=== PATIENT | female | born 1945 | race Caucasian/White ===

== ENCOUNTER → 2017-01-13 | Outpatient (CLI) | payer MEDICARE ==
[2016-03-06 15:51] VITALS: BP 126/76
[~2017-01-13] MED LIST: ASPI-482 PO; KRIL1CAP5 PO; LOSA1TAB18 PO; MULT-246 PO; OMEP20CA9 PO; SUCR1TAB PO; cholesterol pill
--- NOTE | 2017-01-13 15:44 | RAD ---
DATE: 01/13/2017 EXAM: DIGITAL SCREEN BILAT W/CAD HISTORY: Previous right breast cancer COMPARISON: 01/05/2016 This study was interpreted with the benefit of Computerized Aided Detection (CAD). FINDINGS: There are scattered fibroglandular densities in the breasts. There is unchanged skin thickening and architectural distortion in the right breast anteriorly at the 12:00 location compatible with previous surgery. There are dystrophic calcifications in this region which have increased since previous studies. No new or enlarging breast mass is seen. No suspicious microcalcifications have developed. IMPRESSION: 1. Postsurgical changes on the right. 2. No mammographic evidence of malignancy in either breast. BI-RADS CATEGORY: 2 BENIGN FINDING(S) RECOMMENDED FOLLOW-UP: 12M 12 MONTH FOLLOW-UP PQRS compliance statement: Patient information was entered into a reminder system with a target due date for the next mammogram. Mammography is a sensitive method for finding small breast cancers, but it does not detect them all and is not a substitute for careful clinical examination. A negative mammogram does not negate a clinically suspicious finding and should not result in delay in biopsying a clinically suspicious abnormality. "Our facility is accredited by the [employer] Mammography Program."
== END | disposition home or self-care (01) ==
LOC: MAMMO 14:26
PROVIDERS: ATTEND Family Medicine
DX: Z12.31 Encounter for screening mammogram for malignant neoplasm of breast (principal)
CPT/HCPCS: G0202; 77067

== ENCOUNTER 2017-04-03 12:53 | Emergency (ER) | payer MEDICARE ==
[~2017-04-03] VITALS: Ht 162.6 cm; Wt 77.1 kg
--- NOTE | 2017-04-03 14:05 | PHYS DOC ---
Past Medical History Past Medical History: Cancer, High Cholesterol, Hypertension, Other Additional Past Medical Histor: R BREAST Past Surgical History: Cholecystectomy, Hysterectomy, Other Additional Past Surgical Histo: L knee; LEFT TOES Alcohol Use: Occasionally Drug Use: None Adult General Chief Complaint Chief Complaint: BACK PAIN OR INJURY [facility] HPI Patient is a 71 year old female presents to the emergency department stating that she is having left lower back pain just above her hip. Patient states that this is been going on for the last few days. She states that she is unable to bend over to get her laundry out of her washer and dryer. Patient denies any loss of bowel or bladder. She denies any trauma or injury. Patient denies any numbness or tingling down into the feet. Patient states that she had taken Lortab for the pain and discomfort with minimal relief. She did state she taken ibuprofen 800 mg today and the pain has actually decreased. Patient also states that her urine has been cloudy. However she denies any urinary symptoms. Patient does state that she has had back problems when she was younger where she had to wear brace. Review of Systems Review of Systems Constitutional: Denies fever or chills [] Eyes: Denies change in visual acuity, redness, or eye pain [] HENT: Denies nasal congestion or sore throat [] Respiratory: Denies cough or shortness of breath [] Cardiovascular: No additional information not addressed in HPI [] GI: Denies abdominal pain, nausea, vomiting, bloody stools or diarrhea [] : Denies dysuria or hematuria [] Musculoskeletal: Patient complaint of left lower back pain and discomfort with no radiation of pain. Denies any joint pain Integument: Denies rash or skin lesions [] Neurologic: Denies headache, focal weakness or sensory changes [] Endocrine: Denies polyuria or polydipsia [] Allergies Allergies Allergies Coded Allergies Type Severity Reaction Last Updated Verified No Known Drug Allergies 03/05/14 No Physical Exam Physical Exam Constitutional: Well developed, well nourished, no acute distress, non-toxic appearance. [] HENT: Normocephalic, atraumatic, bilateral external ears normal, oropharynx moist, no oral exudates, nose normal. [] Eyes: PERRLA, EOMI, conjunctiva normal, no discharge. [] Neck: Normal range of motion, no tenderness, supple, no stridor. [] Cardiovascular:Heart rate regular rhythm, no murmur [] Lungs & Thorax: Bilateral breath sounds clear to auscultation [] Skin: Warm, dry, no erythema, no rash. [] Back: No thoracic, lumbar spine tenderness no step-offs no deformities no crepitus noted. Patient did have point tenderness above the hip area. No radiation of pain not identified. Patient is able to intubate with a good steady gait. Peripheral pulses 2+ cap refill brisk less than 2 seconds. Extremities: No tenderness, no cyanosis, no clubbing, ROM intact, no edema. [] Neurologic: Alert and oriented X 3, normal motor function, normal sensory function, no focal deficits noted. [] Psychologic: Affect normal, judgement normal, mood normal. [] Current Patient Data Vital Signs Vital Signs Date Time Temp Pulse Resp B/P (MAP) Pulse Ox O2 Delivery O2 Flow Rate FiO2 04/03/17 13:45 98.6 63 18 151/60 (90) 94 Room Air 98.6 Lab Values Laboratory Tests Test 04/03/17 14:01 Urine Color Yellow Urine Clarity Clear Urine pH 6.5 Urine Specific Mcmillan 1.015 Urine Protein Negative mg/dL (NEG-TRACE) Urine Glucose (UA) Negative mg/dL (NEG) Urine Ketones (Stick) Negative mg/dL (NEG) Urine Blood Negative (NEG) Urine Nitrite Negative (NEG) Urine Bilirubin Negative (NEG) Urine Urobilinogen Dipstick 0.2 mg/dL (0.2 mg/dL) Urine Leukocyte Esterase Small (NEG) Urine RBC 0 /HPF (0-2) Urine WBC 1-4 /HPF (0-4) Urine Squamous Epithelial Cells Occ /LPF Urine Transitional Epithelial Cells Occ /LPF Urine Amorphous Sediment Present /HPF Urine Bacteria Few /HPF (0-FEW) Urine Mucus Mod /LPF EKG EKG [] Radiology/Procedures Radiology/Procedures [] Course & Med Decision Making Course & Med Decision Making Pertinent Labs and Imaging studies reviewed. (See chart for details) Patient will be provided with Flexeril, and with recommendations for ibuprofen 800 mg every 8 hours. She was instructed that Flexeril will cause drowsiness. Urine was positive for leukocyte Estrace. She'll be provided with Macrobid to take. She was instructed to drink plenty of fluids such as water and cranberry juice. Avoid cranberry juice cocktail, carbonated beverages, citrus fruits, alcohol, caffeine as these are considered irritants to the bladder. Patient be recommended to follow-up with primary care physician in which she states she hasn't appointment the first part of the month. Patient will be discharged home with signs symptoms to return back to emergency department. Patient agrees with discharge instructions treatment regimens and follow-up recommendations. [] Dragon Disclaimer Dragon Disclaimer This electronic medical record was generated, in whole or in part, using a voice recognition dictation system. Departure Departure Impression: Primary Impression: Back pain Additional Impression: Urinary tract infection Disposition: HOME, SELF-CARE Condition: STABLE Referrals: BRAYDON CARBAJAL (PCP) Patient Instructions: Back Pain, Adult, [id number], Urinary Tract Infection, [id number] Additional Instructions: Activity as tolerated. Ibuprofen 800 mg every 8 hours. Medications as prescribed. Flexeril will cause drowsiness do not take any be alert and oriented. Ice packs to the areas of discomfort in her left lower back area. Drink plenty of fluids such as water and cranberry juice. Avoid cranberry juice cocktail, carbonate beverages, citrus fruits, alcohol as these are considered irritants to the bladder. Follow-up to primary care physician in the next week. Return back to emergency prior signs symptoms of become worse. Scripts Nitrofurantoin Monohyd/M-Cryst (MACROBID 100 MG CAPSULE) 100 Mg Capsule 1 CAP PO BID, #14 CAP Prov: AMINA TIPTON APRN 04/03/17 Cyclobenzaprine Hcl (CYCLOBENZAPRINE HCL) 10 Mg Tablet 10 MG PO TID Y for MUSCLE SPASMS, #30 TAB Prov: AMINA TIPTON APRN 04/03/17 Problem Qualifiers AMINA TIPTON APRN Apr 03, 2017 14:05
[2017-04-03 14:12] LABS: BILIRUBIN,URINE NEGATIVE (NEG); GLUCOSE,URINE NEGATIVE (NEG); NITRITE,URINE NEGATIVE (NEG); PH,URINE 6.5; PROTEIN,URINE NEGATIVE (NEG-TRACE); UROBILINOGEN,URINE 0.2 mg/dL (0.2 mg/dL)
[2017-04-03 14:19] LABS: BACTERIA,URINE FEW /HPF (0-FEW); RBC,URINE 0 /HPF (0-2); SQUAMOUS EPITHELIAL CELL,UR OCC /LPF
[2017-04-03] MEDS ORDERED: CYCL10TA2 PO (14:24)
[2017-04-03] MEDS ORDERED: NITR100C62 PO (14:24)
[2017-04-03 14:30] VITALS: BP 142/65
== END 2017-04-03 14:34 | disposition home or self-care (01) ==
LOC: ER 12:53
DX: N39.0 Urinary tract infection, site not specified (principal); E78.00 Pure hypercholesterolemia, unspecified; I10 Essential (primary) hypertension; Z90.49 Acquired absence of other specified parts of digestive tract; Z90.710 Acquired absence of both cervix and uterus
CPT/HCPCS: 81001; 87086; 99284

== ENCOUNTER 2017-12-07 10:55 | Inpatient (IN) | payer MEDICARE ==
[2017-12-07 11:31] LABS: ADD MAN DIFF? NO
[2017-12-07 11:32] LABS: BASO # 0.1 x10^3/uL (0.0-0.2); BASO % 1 % (0-3); EOS # 0.2 x10^3/uL (0.0-0.7); EOS % 2 % (0-3); HEMATOCRIT 39.4 % (36.0-47.0); HEMOGLOBIN 13.1 g/dL (12.0-15.5); LYMPH # 2.9 x10^3/uL (1.0-4.8); LYMPH % 23 % (24-48); MEAN CORPUSCULAR HEMOGLOBIN 33 pg (25-35); MEAN CORPUSCULAR HGB CONC 33 g/dL (31-37); MEAN CORPUSCULAR VOLUME 99 fL (79-100); MONO # 0.9 x10^3/uL (0.0-1.1); MONO % 7 % (0-9); NEUT # 8.3 x10^3uL (1.8-7.7); NEUT % 67 % (31-73); PLATELET COUNT 331 x10^3/uL (140-400); RED CELL DISTRIBUTION WIDTH 13.6 % (11.5-14.5); WHITE BLOOD COUNT 12.3 x10^3/uL (4.0-11.0)
[2017-12-07 11:49] LABS: ANION GAP 10 (6-14); BLOOD UREA NITROGEN 17 mg/dL (7-20); BUN/CREATININE RATIO 17 (6-20); CALCIUM 9.5 mg/dL (8.5-10.1); CARBON DIOXIDE 28 mmol/L (21-32); CHLORIDE 104 mmol/L (98-107); GFR 54.3; GLUCOSE 112 mg/dL (70-99); POTASSIUM 4.1 mmol/L (3.5-5.1); SODIUM 142 mmol/L (136-145)
[2017-12-07 11:56] LABS: ALBUMIN 3.8 g/dL (3.4-5.0); ALK PHOS 126 U/L (46-116); ALT (SGPT) 28 U/L (14-59); AST (SGOT) 18 U/L (15-37); TOTAL BILIRUBIN 0.5 mg/dL (0.2-1.0); TOTAL PROTEIN 7.6 g/dL (6.4-8.2)
[2017-12-07 11:57] LABS: TROPONINI < 0.017 ng/mL (0.000-0.055)
[2017-12-07 11:58] LABS: NT-PRO BNP 124 pg/mL (0-124)
[2017-12-07 12:34] LABS: INFLUENZA A PATIENT NEGATIVE (NEGATIVE); INFLUENZA B PATIENT NEGATIVE (NEGATIVE); OBC FLU VALID
[2017-12-07] MEDS ORDERED: ACETAMINOPHEN 325 MG TABLET. PO (13:30)
[2017-12-07] MEDS ORDERED: ONDANSETRON PF 4 MG/2 ML VIAL. IV (13:30)
[2017-12-07] MEDS: fentaNYL PF VIAL 100 MCG/2 ML VIAL IV (13:35)
[2017-12-07] MEDS: LIDOCAINE (700MG/PATCH) PATCH. TD (13:37)
[2017-12-07] MEDS: GADOBUTROL 7.5 MMOL/7.5 ML VIAL IV (14:23)
[2017-12-07] MEDS: HYDROcodone/APAP 5/325MG 1 TAB TABLET PO ×2 (16:25→20:34)
[2017-12-07] MEDS: ASPIRIN ENTERIC COATED 81 MG TABLET.DR. PO (16:51)
[2017-12-07] MEDS: PATCH REMOVAL. MC (20:34)
[2017-12-07] MEDS: ENOXAPARIN 40 MG/0.4 ML SYRINGE. SQ (20:34)
[2017-12-08] MEDS: GABAPENTIN 300 MG CAPSULE. PO ×4 (01:13→20:15)
[2017-12-08] MEDS: HYDROcodone/APAP 5/325MG 1 TAB TABLET PO ×4 (01:18→20:22)
[2017-12-08 05:45] LABS: ADD MAN DIFF? NO
[2017-12-08 05:47] LABS: BASO # 0.1 x10^3/uL (0.0-0.2); BASO % 1 % (0-3); EOS # 0.2 x10^3/uL (0.0-0.7); EOS % 2 % (0-3); HEMATOCRIT 37.4 % (36.0-47.0); HEMOGLOBIN 12.5 g/dL (12.0-15.5); LYMPH # 3.6 x10^3/uL (1.0-4.8); LYMPH % 37 % (24-48); MEAN CORPUSCULAR HEMOGLOBIN 33 pg (25-35); MEAN CORPUSCULAR HGB CONC 34 g/dL (31-37); MEAN CORPUSCULAR VOLUME 98 fL (79-100); MONO # 0.8 x10^3/uL (0.0-1.1); MONO % 8 % (0-9); NEUT % 52 % (31-73); PLATELET COUNT 315 x10^3/uL (140-400); RED BLOOD COUNT 3.81 x10^6/uL (3.50-5.40); RED CELL DISTRIBUTION WIDTH 13.7 % (11.5-14.5); WHITE BLOOD COUNT 9.7 x10^3/uL (4.0-11.0)
[2017-12-08 06:10] LABS: ANION GAP 5 (6-14); BLOOD UREA NITROGEN 18 mg/dL (7-20); CARBON DIOXIDE 28 mmol/L (21-32); CHLORIDE 104 mmol/L (98-107); CREATININE 0.9 mg/dL (0.6-1.0); GFR 61.4; GLUCOSE 94 mg/dL (70-99); POTASSIUM 3.5 mmol/L (3.5-5.1); SODIUM 137 mmol/L (136-145)
[2017-12-08] MEDS: PANTOPRAZOLE 40 MG TABLET.DR. PO (08:03)
[2017-12-08] MEDS: ASPIRIN ENTERIC COATED 81 MG TABLET.DR. PO (08:04)
[2017-12-08] MEDS: CHOLECALCIFEROL (VITAMIN D3) 5,000 UNIT CAPSULE PO (08:04)
[2017-12-08] MEDS: MULTIVITAMIN with MINERAL TABLET. PO (08:04)
[2017-12-08] MEDS: hydroCHLOROthiazide 25 MG TABLET PO (08:04)
[2017-12-08] MEDS: LOSARTAN POTASSIUM 50 MG TABLET. PO (08:04)
[2017-12-08] MEDS ORDERED: ASPIRIN ENTERIC COATED 81 MG TABLET.DR. PO (09:00)
[2017-12-08] MEDS ORDERED: NON FORMULARY ITEM (Losartan/Hydrochlorothiazide (Losartan-Hctz 100-25 Mg Tab) 1 TAB) PO (09:00)
[2017-12-08] MEDS ORDERED: ONDANSETRON PF 4 MG/2 ML VIAL. IV (09:30)
[2017-12-08] MEDS ORDERED: NICOTINE 21MG PATCH. TD (09:30)
[2017-12-08] MEDS: ENOXAPARIN 40 MG/0.4 ML SYRINGE. SQ (20:14)
[2017-12-08] MEDS: ATORVASTATIN CALCIUM 10 MG TABLET. PO ×2 (20:14→21:00)
[2017-12-09] MEDS: LOSARTAN POTASSIUM 50 MG TABLET. PO (09:53)
[2017-12-09] MEDS: hydroCHLOROthiazide 25 MG TABLET PO (09:54)
[2017-12-09] MEDS: GABAPENTIN 300 MG CAPSULE. PO (09:54)
[2017-12-09] MEDS: CHOLECALCIFEROL (VITAMIN D3) 5,000 UNIT CAPSULE PO (09:55)
[2017-12-09] MEDS: ASPIRIN ENTERIC COATED 81 MG TABLET.DR. PO (09:55)
[2017-12-09] MEDS: MULTIVITAMIN with MINERAL TABLET. PO (09:55)
[2017-12-09] MEDS: PANTOPRAZOLE 40 MG TABLET.DR. PO (09:55)
== END 2017-12-09 11:40 | disposition home or self-care (01) | DRG 69 ==
LOC: ER 10:55 → ED HOLD 13:15 → 6 SOUTH 15:41
DX: G45.9 Transient cerebral ischemic attack, unspecified (principal); E78.00 Pure hypercholesterolemia, unspecified; R07.81 Pleurodynia; E78.5 Hyperlipidemia, unspecified; I10 Essential (primary) hypertension; K21.9 Gastro-esophageal reflux disease without esophagitis; K57.90 Diverticulosis of intestine, part unspecified, without perforation or abscess without bleeding; M81.0 Age-related osteoporosis without current pathological fracture; Z82.49 Family history of ischemic heart disease and other diseases of the circulatory system; Z85.3 Personal history of malignant neoplasm of breast; Z86.73 Personal history of transient ischemic attack (TIA), and cerebral infarction without residual deficits; Z87.11 Personal history of peptic ulcer disease; Z87.891 Personal history of nicotine dependence; Z90.710 Acquired absence of both cervix and uterus; M19.90 Unspecified osteoarthritis, unspecified site; Z90.49 Acquired absence of other specified parts of digestive tract; M54.5 Low back pain; R07.89 Other chest pain; Z98.49 Cataract extraction status, unspecified eye
CPT/HCPCS: 36415; 70450; 70553; 71101; 80048; 80053; 83880; 84484; 85025; 87804; 87804-59; 92610-GN; 93005; 93880; 96374; 96375; 97161-GP; 97165-GO; 99285-25; A9585; C8929; J1650; J3010

== ENCOUNTER → 2017-12-29 | Outpatient (CLI) | payer MEDICARE ==
[~2017-12-29] MED LIST changes: -ASPI-482 PO; -KRIL1CAP5 PO; -LOSA1TAB18 PO; -MULT-246 PO; -OMEP20CA9 PO; +REGADENOSON 0.4 MG/5 ML DISP.SYRIN. IV; -SUCR1TAB PO; -cholesterol pill
== END | disposition home or self-care (01) ==
LOC: NM 08:02
DX: R07.9 Chest pain, unspecified (principal); R06.09 Other forms of dyspnea; R53.83 Other fatigue; I10 Essential (primary) hypertension; R56.9 Unspecified convulsions
CPT/HCPCS: 78452; 93017; 96374; 96375; 96376; A9500; J2785

== ENCOUNTER → 2018-01-16 | Outpatient (CLI) | payer MEDICARE | END | disposition home or self-care (01) | LOC: MAMMO 09:48 | DX: Z12.31 Encounter for screening mammogram for malignant neoplasm of breast (principal) | CPT/HCPCS: 77063; 77067 ==

== ENCOUNTER → 2018-03-27 | Outpatient (CLI) | payer MEDICARE | END | disposition home or self-care (01) | LOC: KCIC DEXA 10:58 | DX: Z13.820 Encounter for screening for osteoporosis (principal); I10 Essential (primary) hypertension; E78.5 Hyperlipidemia, unspecified; E78.00 Pure hypercholesterolemia, unspecified; R29.890 Loss of height; Z85.3 Personal history of malignant neoplasm of breast; Z78.0 Asymptomatic menopausal state | CPT/HCPCS: 77080 ==

== ENCOUNTER → 2018-10-04 | Outpatient (CLI) | payer MEDICARE, OTHER ==
[2018-09-13 11:18] VITALS: BP 110/55
[~2018-10-04] MED LIST changes: +ASPI-482 PO; +ATOR10TA60 PO; +CHOL500016 PO; +CIPR10DR AS; +CYCL10TA2 PO; +GABA300C18 PO; +GABA600T2 PO; +IOHEXOL 180 MG/ML 10 ML VIAL. ONE; +KRIL1CAP5 PO; +LOSA1TAB22 PO; +LOSA1TAB25 PO; +MULT-246 PO; +MULT1TAB52 PO; +NITR100C62 PO; +OMEP20CA9 PO; -REGADENOSON 0.4 MG/5 ML DISP.SYRIN. IV; +SUCR1TAB PO; +cholesterol pill; +methylPREDNISolone ACETATE 40 MG/ML VIAL. ONE; +methylPREDNISolone ACETATE 80 MG/ML VIAL. ONE
--- NOTE | 2018-10-04 13:29 | PAIN ---
DATE OF SERVICE: 10/04/2018 INITIAL CONSULTATION FOR PAIN CLINIC CHIEF COMPLAINT: Low back and right lower extremity pain. HISTORY OF PRESENT ILLNESS: This is a 73-year-old female who presents with history of pain for many years, worse over the past 2 years, increasing pain in the low back, right lower extremity, in the posterior gluteus, posterolateral thigh, lateral anterior thigh, medial thigh, medial lower leg and posterior lower leg and calf, into the foot and occasionally in the great toe. The patient reports it is throbbing, aching, shooting, radiating, becoming more severe with time and not result of any specific injury or action that she is aware of. The patient reports it wakes her from sleep at least once a night, does not affect her bowel or bladder control, but does affect her ability to walk. She is not using assistive devices, however, she has been favoring the right lower extremity, holding on the guardrails, handrails and objects when she walks. The patient reports she has had physical therapy in the past in 2018 as well as chiropractic treatment which is ongoing, exercise is ongoing, all of these have been helpful, but not to a great extent. The patient reports she has tried gabapentin as well as [id number] analgesics and this does decrease the pain to a mild extent as well as Tylenol, which does help also. The patient reports no loss of motor function, but significant fatigability in the right leg with ambulation. The patient did have a lumbar myelogram showing multilevel degenerative changes, bilateral spondylosis at L4-L5 with vacuum disk phenomenon, broad-based posterior disk bulging, with mild degenerative changes and mild foraminal narrowing on the right. L3-L4 shows moderate broad-based posterior bulging with mild degenerative changes as well and central spinal canal well maintained and minimal inferior foraminal encroachment due to disk bulging. L5-S1 shows bilateral spondylosis, moderate disk bulging posteriorly causing moderate bilateral foraminal encroachment. The patient rates her disability from 0-10, 10 being the worst at 9 with home responsibilities, 7 with recreation, 8 with occupation and 5 with life support activities. PAST MEDICAL HISTORY: Significant for cigarette smoking, quit 15 years ago. History of indigestion, hiatal hernia, headaches, stroke in the past, osteoporosis. PAST SURGICAL HISTORY: Include lumpectomy in 1999, stomach surgery for hiatal hernia in 2016, hysterectomy, cholecystectomy, left knee surgery in 2015, and left foot surgery in 2016. CURRENT MEDICATIONS: Include gabapentin, losartan, baby aspirin daily and omeprazole. ALLERGIES: The patient has no known drug allergies. FAMILY HISTORY: Significant for cancers and heart disease as well as diabetes. SOCIAL HISTORY: The patient does not drink alcohol, does not smoke, quit many years ago. She is , lives with her spouse, lives locally in [place], [place] and reports she is currently retired. REVIEW OF SYSTEMS: The patient's review of systems is positive for those items mentioned in history of present illness. All systems reviewed and otherwise negative. It is complete, full and well documented on the patient's chart. PHYSICAL EXAMINATION: VITAL SIGNS: The patient's blood pressure is 140/72, pulse 65, respirations 18, temperature is 97.7 degrees Fahrenheit. Height is 5 feet 3 inches, weighs 173 pounds. GENERAL: The patient is awake, alert, appropriate, very pleasant demeanor. HEENT: Head is normocephalic, atraumatic. Extraocular muscles are intact and symmetrical. Oral cavity: Mucous membranes moist and pink. Dentition is intact. NECK: Shows anterior throat supple without palpable lymphadenopathy noted. Swallow reflex symmetrical. CHEST: Shows normal on inspection. Breath sounds are clear to auscultation bilaterally. HEART: Shows S1, S2 clear. No murmurs auscultated. ABDOMEN: Soft, nontender, nondistended. No palpable organomegaly is noted. No rebound or guarding demonstrated. BACK: Shows spine grossly in the midline. Normal-appearing thoracic kyphosis and lumbar lordotic curvature. Lumbar paraspinous muscle shows symmetrical on inspection; with palpation, shows some moderate tenderness diffusely bilaterally, but only diffusely with palpation and is symmetrical and this is true throughout the upper, middle and lower distribution of paraspinous muscles. No tenderness over the sacrum or sacroiliac regions or the spinous processes. The patient shows good rotational motion of lumbar spine, both laterally as well as extension and flexion without significant difficulty or pain reported. EXTREMITIES: The patient's lower extremities show deep tendon reflexes at 1+ in the patellar and tendo calcaneus tendons are equal. Motor exam is strong with ____ scale of 5 right dorsiflexion and extension, 5/5 on the left. History of quadriceps and hamstring flexion by right and left as well. Peripheral pulses are 1+ posterior tibia. No peripheral edema is noted. Lower extremities are warm and dry to touch, equal in color and appearance. Straight leg raise noted to be positive on the right at about 40 degrees, decreased knee flexion; left side is negative. Gaenslen's and Fransisco's maneuvers are negative bilaterally as well. The patient is able to stand, stand on her toes without significant difficulty or loss of balance. The patient is walking without assistive devices, although she is holding on to the wall and to the hand rail with her right hand to ambulate and does appear to favor the right lower extremity to a fairly significant extent with walking. SKIN: Shows warm and dry, good turgor. No edema. No sores, rashes or bruising. IMPRESSION: This is a 73-year-old female with long history of low back and right lower extremity pain, worse over the past 2 years or so in a radicular pattern. 2. MRI scan of lumbar spine as noted. 3. History of osteoporosis and arthritis. Options were discussed with the patient including conservative medical management, physical therapies continued exercise and interventional techniques and she would like to pursue interventional techniques. We discussed a lumbar epidural steroid injection using description as well as anatomical models to describe the procedure. Risks were then discussed including, but not limited to bleeding, infection, possibility of epidural hematoma, subsequent neurologic compromise, dural puncture, headaches, spinal cord and/or nerve damage; side effects of steroid medication and poor results regarding pain control. The patient understands and wished to proceed. The patient to return to clinic in approximately 2 weeks for followup. She was counseled as to return appointment, activity level and side effects to be aware of. DIAGNOSIS: Lumbar radiculopathy with lumbar spinal stenosis, lumbar degenerative disk disease. PROCEDURE: Lumbar epidural steroid injection, translaminar approach L4-L5 level using C-arm fluoroscopic guidance under sterile prep and drape using local anesthetic. MEDICATION INJECTED: A total of 120 mg Depo-Medrol plus 10 mL of preservative-free normal saline and 2 mL of Isovue for contrast. CONDITION AT DISCHARGE: Stable. The patient tolerated the procedure well and had no complications. BOWEN FENG MD DR: ZACKARY/racquel JOB#: [id number] / [id number]
== END | disposition home or self-care (01) ==
LOC: PNCL 08:52
PROVIDERS: ATTEND Anesthesiology
DX: M51.16 Intervertebral disc disorders with radiculopathy, lumbar region (principal); M48.061 Spinal stenosis, lumbar region without neurogenic claudication; M81.0 Age-related osteoporosis without current pathological fracture; M19.90 Unspecified osteoarthritis, unspecified site; Z87.891 Personal history of nicotine dependence; Z86.73 Personal history of transient ischemic attack (TIA), and cerebral infarction without residual deficits; Z90.49 Acquired absence of other specified parts of digestive tract; Z90.710 Acquired absence of both cervix and uterus; Z98.890 Other specified postprocedural states; Z79.82 Long term (current) use of aspirin; Z79.899 Other long term (current) drug therapy; Z83.3 Family history of diabetes mellitus; Z82.49 Family history of ischemic heart disease and other diseases of the circulatory system
CPT/HCPCS: 62323; J1030; J1040; Q9965

== ENCOUNTER 2018-10-06 15:49 | Emergency (ER) | payer MEDICARE, OTHER ==
[~2018-10-06] VITALS: Ht 160 cm; Wt 78.0 kg
[~2018-10-06 15:49] MED LIST changes: -CIPR10DR AS; -GABA600T2 PO; +GABA600T7 PO; -IOHEXOL 180 MG/ML 10 ML VIAL. ONE; +OMEP20CA10 PO; -OMEP20CA9 PO; -methylPREDNISolone ACETATE 40 MG/ML VIAL. ONE; -methylPREDNISolone ACETATE 80 MG/ML VIAL. ONE
[2018-10-06 16:20] VITALS: BP 129/63
[2018-10-06] MEDS ORDERED: CIPR10DR AS (17:26)
--- NOTE | 2018-10-06 17:27 | PHYS DOC ---
Past Medical History Past Medical History: Cancer, High Cholesterol, Hypertension, Other Additional Past Medical Histor: R BREAST Past Surgical History: Cholecystectomy, Hysterectomy, Other Additional Past Surgical Histo: L knee; LEFT TOES Alcohol Use: Occasionally Drug Use: None Adult General Chief Complaint Chief Complaint: FOREIGNBODY EAR HPI HPI Patient is a 73 year old F who presents with FB sensation in her R ear. She states she awoke at 3 am with a sensation of something crawling around inside her ear so she looked up on line and heard that if you pour mineral oil in the ear it will kill the insect so she did and the movement stopped. Today she still feels like something is in there and it sound is muffled. Review of Systems Review of Systems Constitutional: Denies fever or chills HENT: Denies nasal congestion or sore throat. Reports R ear pain and fullness Respiratory: Denies cough or shortness of breath Cardiovascular: Denies chest pain GI: Denies abdominal pain, nausea, vomiting, bloody stools or diarrhea : Denies dysuria or hematuria Musculoskeletal: Denies back pain or joint pain Integument: Denies rash or skin lesions Neurologic: Denies headache All other systems were reviewed and found to be within normal limits, except as documented in this note. Allergies Allergies Allergies Coded Allergies Type Severity Reaction Last Updated Verified No Known Drug Allergies 12/07/17 No Physical Exam Physical Exam Constitutional: Well developed, well nourished, no acute distress, non-toxic appearance. HENT: Normocephalic, atraumatic, R ear canal inflamed and erythematous and there appears to be a dark FB down by the TM Eyes: PERRLA, EOMI, conjunctiva normal, no discharge. Neck: Normal range of motion, no tenderness, supple, no stridor. Cardiovascular:Heart rate regular rhythm, no murmur Lungs & Thorax: Bilateral breath sounds clear to auscultation Abdomen: Bowel sounds normal, soft, no tenderness, no masses, no pulsatile masses. Skin: Warm, dry, no erythema, no rash. Back: No tenderness, no CVA tenderness. Extremities: No tenderness, no cyanosis, no clubbing, ROM intact, no edema. Neurologic: Alert and oriented X 3, normal motor function, normal sensory function, no focal deficits noted. Psychologic: Affect normal, judgement normal, mood normal. Current Patient Data Vital Signs Vital Signs Date Time Temp Pulse Resp B/P (MAP) Pulse Ox O2 Delivery O2 Flow Rate FiO2 10/06/18 16:20 97.7 82 16 129/63 (85) 95 Room Air 97.7 EKG EKG [] Radiology/Procedures Radiology/Procedures [] Course & Med Decision Making Course & Med Decision Making See procedure note. The FB, a bug, was removed successfully. Due to EAC irritation and erythema, we will cover her with prescription for Cipro HC otic suspension. Advised pt to follow up with PCP or ENT if irritation of ear persists. Pt to avoid sticking anything, including Qtips in to the Ear. Dragon Disclaimer Dragon Disclaimer This electronic medical record was generated, in whole or in part, using a voice recognition dictation system. Ear Foreign Body Removal Indication: Foreign body in the ear canal. Procedure: During otoscopic evaluation a foreign body was visualized in the R ear which appeared to be a bug. The patient's head was positioned appropriately and since the FB was far down by the TM, I first flushed the ear with warm water and the FB moved out towards the outer ear canal opening. I was then able to grasp the FB with the small alligator forceps. It was removed and was a small insect that was . It appeared the insect was intact and inspection of the ear following removal did not show any obvious residual FB. I had a second inspection done by co-worker Wojciech and she agreed it looked to be completely removed. The patient tolerated the procedure well. Complications: none. Departure Departure Impression: Primary Impression: Foreign body in ear Disposition: 01 HOME, SELF-CARE Condition: IMPROVED Referrals: BRAYDON CARBAJAL (PCP) Patient Instructions: Ear Foreign Body, [id number] Additional Instructions: The ear canal was irritated after the insect was removed. Use the ear antibiotic drops and follow up with your doctor or the ENT (ear, nose and throat ) doctor as needed. Scripts Ciprofloxacin/Hydrocortisone (CIPRO HC OTIC SUSPENSION) 10 Ml Drops.susp 3 DROP BID for 7 Days, #10 ML Prov: NAYAN HEMPHILL 10/06/18 NAYAN HEMPHILL Oct 06, 2018 17:27
[2019-02-14] MEDS ORDERED: METF10007 PO (08:28)
== END 2018-10-06 17:30 | disposition home or self-care (01) ==
LOC: ER 15:49
DX: T16.1XXA Foreign body in right ear, initial encounter (principal); E78.00 Pure hypercholesterolemia, unspecified; I10 Essential (primary) hypertension; X58.XXXA Exposure to other specified factors, initial encounter; Y93.89 Activity, other specified; Y92.89 Other specified places as the place of occurrence of the external cause; Y99.8 Other external cause status
CPT/HCPCS: 69200; 99284-25

== ENCOUNTER → 2018-10-30 | Outpatient (CLI) | payer MEDICARE, OTHER ==
[2018-10-06 16:20] VITALS: BP 129/63
[~2018-10-30] MED LIST changes: +CIPR10DR AS; +IOHEXOL 180 MG/ML 10 ML VIAL. ONE; +METF10007 PO; +methylPREDNISolone ACETATE 40 MG/ML VIAL. ONE; +methylPREDNISolone ACETATE 80 MG/ML VIAL. ONE
--- NOTE | 2018-10-30 12:19 | PAIN ---
DATE OF SERVICE: 10/30/2018 PROGRESS NOTE FOR PAIN CLINIC DIAGNOSES: Lumbar radiculopathy with lumbar degenerative disk disease, lumbar spinal stenosis. HISTORY OF PRESENT ILLNESS: The patient is a 73-year-old female who returns for followup status post lumbar epidural steroid injection x 1. The patient reports about 50% improvement for the first week or so, but then the pain beginning to return not like it was, less in the lower extremities, but mostly in the low back. The patient reports it is 9 on a scale of 10 at its worst, on average and 5 at its least and is a 9 today. The patient reports it is aching at times, dull, tight, shooting, sometimes unbearable, but mostly with walking, standing, better with sitting or lying down. The patient reports it does occasionally awaken her from sleep, but not usually. The patient reports she was increasing distance walking, doing activities at home, traveling with greater ease for the first week or so, but then the pain began to return again less in the lower extremities, but more in the low back itself. The patient reports no new motor or sensory deficits, no new bowel or bladder incontinence or other complaints. PHYSICAL EXAMINATION: VITAL SIGNS: The patient's blood pressure 115/70, pulse 67, respirations 18, temperature 97.7 degrees Fahrenheit, weight 177 pounds. GENERAL: The patient is awake, alert, oriented, appropriate, very pleasant demeanor. HEENT: Head shows normocephalic, atraumatic. Extraocular movements intact and symmetrical. Oral cavity: Mucous membranes moist and pink. Dentition intact. NECK: Shows anterior throat supple without palpable lymphadenopathy noted. Swallow reflex symmetrical. CHEST: Shows normal on inspection. Breath sounds clear to auscultation bilaterally. HEART: Shows S1, S2 clear. No murmurs auscultated. ABDOMEN: Soft, nontender, nondistended. No palpable organomegaly is noted. No rebound or guarding demonstrated. BACK: Shows spine grossly in the midline. Normal appearing thoracic kyphosis and some minor flattening of lumbar lordotic curvature. Lumbar paraspinous muscle shows symmetrical on inspection, on palpation shows some moderate tenderness diffusely in the middle and lower distribution of paraspinous muscles, but only diffusely without radiation. The patient has good rotational motion of lumbar spine, both laterally as well as extension and flexion without difficulty. EXTREMITIES: Lower extremities show deep tendon reflexes 1+ in the patellar and talocalcaneal tendons are equal. Motor exam is approximately 4 on scale of 5 on the right and 5/5 on the left with dorsiflexion and extension. PLAN: Options were discussed with the patient. The patient's old chart was reviewed as her current medication regimen updated. Current review of systems updated today as well. We will proceed with a second in the series of lumbar epidural steroid injection today with fluoroscopic guidance. Risks were again discussed including, but not limited to bleeding, infection, possibility of epidural hematoma, subsequent neurologic compromise, dural puncture, headaches, spinal cord and/or nerve damage, side effects of steroid medication and poor results regarding pain control. The patient understands and wished to proceed. The patient to return to clinic in approximately 2 weeks for followup, was counseled on return appointment, activity level and side effects to be aware of. DIAGNOSES: Lumbar radiculopathy with lumbar degenerative disk disease, lumbar spinal stenosis. PROCEDURE: Lumbar epidural steroid injection, translaminar approach at L4-L5 level using C-arm fluoroscopic guidance under sterile prep and drape using local anesthetic. MEDICATION INJECTED: A total of 120 mg Depo-Medrol plus 10 mL of preservative-free normal saline and 2 mL of Isovue for contrast. CONDITION AT DISCHARGE: Stable. The patient tolerated the procedure well, had no complications. BOWEN FENG MD DR: ZACKARY/racquel JOB#: [id number] / [id number]
== END | disposition home or self-care (01) ==
LOC: PNCL 10:35
PROVIDERS: ATTEND Anesthesiology
DX: M51.16 Intervertebral disc disorders with radiculopathy, lumbar region (principal); M48.061 Spinal stenosis, lumbar region without neurogenic claudication
CPT/HCPCS: 62323; J1030; J1040; Q9965

== ENCOUNTER → 2018-11-13 | Outpatient (CLI) | payer MEDICARE, OTHER ==
--- NOTE | 2018-11-13 22:42 | PAIN ---
DATE OF SERVICE: 11/13/2018 PROGRESS NOTE FOR PAIN CLINIC DIAGNOSES: Lumbar radiculopathy with lumbar degenerative disk disease and lumbar spinal stenosis. HISTORY OF PRESENT ILLNESS: The patient is a 73-year-old female who returns for followup status post lumbar epidural steroid injection x 2. The patient reports about 50% improvement, but only lasting for about 2 weeks. The patient reports the pain is returning in the low back and in the bilateral lower extremities, worse on the right than the left, in the posterior gluteus, lateral thigh, anterior thigh, medial thigh, medial lower leg on the right side to the foot and toes as well as some tingling in the foot and toes. The patient reports the pain is a 10 on scale of 10 at its worst, 6 on average, 4 at its least and is a 6 today. The patient reports it is sharp and shooting, sometimes unbearable with walking, standing or changing positions. Initially, she was doing better with walking and doing household activities, but it is becoming more noticeable again. It does not awaken her from her sleep at night, but occasionally keeps her up, but not every night. The patient reports no new motor or sensory deficits. No new bowel or bladder incontinence or other complaints. PHYSICAL EXAMINATION: VITAL SIGNS: The patient's blood pressure is 120/73, pulse 67, respirations 18 and temperature 98.2 degrees Fahrenheit. Weight 176 pounds. GENERAL: The patient is awake, alert, oriented, appropriate, very pleasant demeanor. HEENT EXAMINATION: Shows normocephalic, atraumatic. Extraocular muscles are intact and symmetrical. Oral cavity, mucous membranes are moist and pink. Dentition is intact. NECK: Shows anterior throat supple, without palpable lymphadenopathy noted. Swallow reflex is symmetrical. CHEST: Shows normal on inspection. Breath sounds are clear to auscultation bilaterally. HEART: Shows S1, S2 clear. No murmurs auscultated. ABDOMEN: Soft, nontender and nondistended. No palpable organomegaly is noted. No rebound or guarding demonstrated. BACK: Shows spine grossly in the midline. Normal-appearing thoracic kyphosis, some minor flattening of the lumbar lordotic curvature. Lumbar paraspinous muscle shows symmetrical on inspection. On palpation, it shows some moderate tenderness, but only diffusely without radiation. The patient has good rotational motion of the lumbar spine, both laterally as well as extension and flexion without difficulty. EXTREMITIES: Lower extremities show deep tendon reflexes 1+ in the patellar and tendo calcaneus tendons. Motor exam is approximately 4 on a scale of 5 on the right with dorsiflexion and extension and 5/5 on the left. Peripheral pulses are 1+ posterior tibial. No peripheral edema is noted bilaterally. Options were discussed with the patient. The patient's old chart was reviewed as was her current medication regimen updated. Current review of systems updated today as well. We will proceed with a third in the series of lumbar epidural steroid injection today with fluoroscopic guidance. Risks were again discussed including, but not limited to bleeding, infection, possibility of epidural hematoma, subsequent neurological compromise, dural puncture, headaches, spinal cord and/or nerve damage, side effects to steroid medication and poor results regarding pain control. The patient understands and wishes to proceed. The patient will return to the clinic in approximately 2 weeks for followup. She was counseled on her return appointment, activity level and side effects to be aware of. DIAGNOSES: Lumbar radiculopathy with lumbar degenerative disk disease and lumbar spinal stenosis. PROCEDURE: Lumbar epidural steroid injection in a translaminar approach at L4-L5 level using C-arm fluoroscopic guidance under sterile prep and drape using local anesthetic. MEDICATION INJECTED: A total of 120 mg Depo-Medrol plus 10 mL of preservative-free normal saline and 2 mL of Isovue for contrast. CONDITION AT DISCHARGE: Stable. The patient tolerated the procedure well, had no complications. BOWEN FENG MD DR: ZACKARY/racquel JOB#: [id number] / [id number]
== END | disposition home or self-care (01) ==
LOC: PNCL 10:02
PROVIDERS: ATTEND Anesthesiology
DX: M51.16 Intervertebral disc disorders with radiculopathy, lumbar region (principal); M48.061 Spinal stenosis, lumbar region without neurogenic claudication
CPT/HCPCS: 62323; J1030; J1040; Q9965

== ENCOUNTER → 2019-02-14 | Outpatient (CLI) | payer MEDICARE ==
[~2019-02-14] MED LIST changes: -IOHEXOL 180 MG/ML 10 ML VIAL. ONE; -methylPREDNISolone ACETATE 40 MG/ML VIAL. ONE; -methylPREDNISolone ACETATE 80 MG/ML VIAL. ONE
--- NOTE | 2019-02-14 23:10 | PAIN ---
DATE OF SERVICE: 02/14/2019 PROGRESS NOTE FOR PAIN CLINIC DIAGNOSES: Lumbar radiculopathy with lumbar spinal stenosis and lumbar degenerative disk disease. HISTORY OF PRESENT ILLNESS: The patient is a 73-year-old female who returns for followup status post lumbar epidural steroid injections x 3 with essentially about only 50% improvement overall, but not less. The patient reports the pain returns after about a month, comes back in the low back and bilateral lower extremities, mostly in the right side greater than left, in posterior gluteus, lateral thigh, anterior thigh, medial thighs bilaterally as well as across the low back. The patient reports it is a 9 on a scale of 10 at its worst, 7 on average, 4 at its least and is a 7 today. The patient reports it is sharp and dull, alternating in the low back, radiating, unbearable at times, worse with walking, standing and changing positions, better with sitting or lying down, does not awaken her from sleep at night. The patient reports initially she is able to increase her activities with walking and traveling distances, but after about a month, the pain returns. The patient has had a neurosurgical consultation who is not recommending any surgery. The patient would require an extensive instrumented fusion at L5 and S1 and the patient's neurosurgeon is recommending a spinal cord stimulator if not significantly improved after injections and she has reached that point. The patient would like to investigate this. We gave informative information to research on at her last visit and she is interested in pursuing this. We will make those arrangements. The patient reports no new motor or sensory deficits, no new bowel or bladder incontinence or other complaints. PHYSICAL EXAMINATION: VITAL SIGNS: The patient's blood pressure is 107/68, pulse 90, respirations 18, temperature 98.8 degrees Fahrenheit. Height is 5 feet 3 inches, weight 171 pounds. GENERAL: The patient is awake, alert, oriented, appropriate, very pleasant demeanor. HEENT: Shows normocephalic, atraumatic. Extraocular movements intact and symmetrical. Oral cavity: Mucous membranes moist and pink. Dentition is intact. NECK: Shows anterior throat supple without palpable lymphadenopathy noted. Swallow reflex is symmetrical. CHEST: Shows normal on inspection. Breath sounds are clear to auscultation bilaterally. HEART: Shows S1, S2 clear. No murmurs auscultated. ABDOMEN: Soft, nontender, nondistended. No palpable organomegaly is noted. No rebound or guarding demonstrated. BACK: Shows spine grossly in the midline. Normal appearing thoracic kyphosis and some minor flattening of lumbar lordotic curvature. Lumbar paraspinous muscle shows symmetrical on inspection, on palpation shows some moderate tenderness diffusely bilaterally, but only diffusely without significant radiation. The patient shows good rotational motion of lumbar spine both laterally as well as extension and flexion without significant pain reported. EXTREMITIES: Lower extremities show deep tendon reflexes at 1+ in the patellar and tendo-calcaneus tendons. Motor exam is 4 on a scale of 5 on the right, 5/5 on the left with dorsiflexion and extension. Peripheral pulses are 1+ bilaterally. Options were discussed with the patient. The patient's old chart was reviewed as his current medication regimen updated. Current review of systems updated today as well. We will make arrangements to schedule a spinal cord stimulator trial. The patient will be referred to Psychology first for clearance, and once this is obtained, we will preauthorize the patient for a spinal cord stimulator and temporary lead placement for a trial stimulator. The patient understands and agrees, will follow up after a Psychology evaluation and we will proceed at that point. BOWEN FENG MD DR: ZACKARY/racquel JOB#: [id number] / [id number]
== END | disposition home or self-care (01) ==
LOC: PNCL 07:57
PROVIDERS: ATTEND Anesthesiology
DX: M51.16 Intervertebral disc disorders with radiculopathy, lumbar region (principal); M48.061 Spinal stenosis, lumbar region without neurogenic claudication
CPT/HCPCS: G0463

== ENCOUNTER → 2019-04-08 | Outpatient (CLI) | payer MEDICARE, OTHER ==
[~2019-04-08] MED LIST changes: +REGADENOSON 0.4 MG/5 ML DISP.SYRIN. IV ONE
--- NOTE | 2019-04-08 12:36 | RAD ---
MR#: [id number] Date of Study: 04/08/2019 Ordering Physician: ANA GRIDER, Referring Physician: LAURY SOMMER Tech: OBED Echeverria ARRT (R) (N) APPROVED REPORT Test Type: Pharmacological Stress Nurse/Tech: Laura Barrera R.N. Test Indications: chest pain, SOA Cardiac History: high chol, high bp, family hx, dm, stroke Medications: see ehr Medical History: see ehr Resting ECG: sr Resting Heart Rate: 51 bpm Resting Blood Pressure: 139/54mmHg Pretest Chest Pain: No chest pain Nurse/Tech Notes lungs cta, heart tones regular, Consent: The procedure was explained to the patient in lay terms. Informed consent was witnessed. Eric eout was entered into meebee. History and Stress Test performed by RE[facility] [employer]. Details Pharmacologic stress testing was performed using 0.4mg per 5ml of regadenoson given intravenously ove r 7-10 seconds. Stress Symptoms No chest pain or symptoms. POST EXERCISE Target HR: No Max HR: 84 bpm Max Blood Pressure: 149/79mmHg Chest Pain: No. Arrhythmia: No. ST Change: No. INTERPRETATION Stress EKG Conclusion: No evidence of stress induced EKG changes Imaging Protocol IMAGE PROTOCOL: Rest Tc-99m/stress Tc-99m 1 day Rest: Stress: Viability: Radiopharm.Tc99m DepynksmdNz50d Sestamibi Sbwv27gNl 33mCi Img Date 04/08/2019 04/08/2019 Inj-Img Ofuk16snf. 60min. Rest Admin Site:IV - Left WristAdministrator:OBED Echeverria ARRT (R)(N) Stress Admin Site: IV - Left WristAdministrator: REEMA Waters STRESS DATA End Diast. Vol.104.0mlLVEDV index BSA58.0ml End Syst. Vol.28.0mlLVESV index BSA16.0ml Myocardial Ebcd167.0gEject. Omtevpsx03.0% Stress Scores Regional WT0.00Summed WT0.00 Regional WM0.00Summed WM0.00 The rest and stress images show normal perfusion, normal contraction and thickening. LV Perf. Quant 17 Seg. SSS0.00 17 Seg. SRS2.00 17 Seg. SDS0.00 Stress Defect Extent (% LAD)0.00Rest Defect Extent (% LAD)0.00Rev. Defect Extent (% LAD)0.00 Stress Defect Extent (% LCX) 0.00Rest Defect Extent (% LCX)13.80Rev. Defect Extent (% LCX)0.00 Stress Defect Extent (% RCA)0.00Rest Defect Extent (% RCA)0.00Rev. Defect Extent (% RCA)0.00 Stress Defect Extent (% NOREEN)0.00Rest Defect Extent (% NOREEN)3.70Rev. Defect Extent (% NOREEN)0.00 Other Information Quality:Good Risk Assessment: Low Risk Conclusion 1. No evidence of EKG changes with stress testing. 2. Normal perfusion at stress/rest. 3. Low risk study. 4. EF > 60%. Signed by : Ana Grider, Electronically Approved : 04/08/2019 12:35:43
--- NOTE | 2019-04-08 16:46 | CARD ---
MR#: [id number] Date of Study: 04/08/2019 Ordering Physician: ANA ALMAZAN, Referring Physician: ANA ALMAZAN, Tech: Katie Ashby SHELBI APPROVED REPORT EXAM: Two-dimensional and M-mode echocardiogram with Doppler and color Doppler. Other Information Quality : Good INDICATION Chest Pain 2D DIMENSIONS RVDd2.9 (2.9-3.5cm)Left Atrium(2D)4.0 (1.6-4.0cm) IVSd0.9 (0.7-1.1cm)Aortic Root(2D)2.7 (2.0-3.7cm) LVDd5.1 (3.9-5.9cm)LVOT Diameter2.0 (1.8-2.4cm) PWd0.9 (0.7-1.1cm)LVDs3.4 (2.5-4.0cm) FS (%) 34.2 %SV79.2 ml LVEF(%)62.9 (>50%) Aortic Valve AoV Peak Reginald.188.0cm/sAoV VTI40.1cm AO Peak GR.14.1mmHgLVOT Peak Reginald.109.8cm/s AO Mean GR.8mmHgAVA (VMAX)1.87cm2 JASPER (VTI)2.04dh0JU P 1/2 Jtce973vb Mitral Valve MV E Ngbgmqfv28.8cm/sMV DECEL QAGA839gw MV A Cakvdlml64.7cm/sE/A Ratio1.1 Tricuspid Valve TR P. Rkrjzzou504ww/sRAP FHNYBYGI2jnVo TR Peak Gr.37byEwYJBZ40meZo Pulmonary Vein S1 Eqzcjbos73.7cm/sD2 Fqdxjlur75.8cm/s LEFT VENTRICLE The left ventricle is normal size. There is normal left ventricular wall thickness. The left ventricu lar systolic function is normal and the ejection fraction is within normal range. The Ejection Fracti on is 55-60%. There is normal LV segmental wall motion. Transmitral Doppler flow pattern is Grade I-a bnormal relaxation pattern. RIGHT VENTRICLE The right ventricle is normal size. The right ventricular systolic function is normal. ATRIA The left atrium is mildly dilated. The right atrium size is normal. The interatrial septum is intact with no evidence for an atrial septal defect or patent foramen ovale as noted on 2-D or Doppler imagi ng. AORTIC VALVE The aortic valve is calcified but opens well. Doppler and Color Flow revealed mild aortic regurgitati on. There is no significant aortic valvular stenosis. MITRAL VALVE The mitral valve is normal in structure and function. There is no evidence of mitral valve prolapse. There is no mitral valve stenosis. Doppler and Color-flow revealed mild mitral regurgitation. TRICUSPID VALVE The tricuspid valve is normal in structure and function. Doppler and Color Flow revealed mild tricusp id regurgitation. The PA pressure was estimated at 42 mmHg. There is no tricuspid valve stenosis. PULMONIC VALVE The pulmonic valve is not well visualized. Doppler and Color Flow revealed trace to mild pulmonic alexia vular regurgitation. There is no pulmonic valvular stenosis. GREAT VESSELS The aortic root is normal in size. The ascending aorta is normal in size. The IVC is dilated and edgar apses >50% with inspiration. PERICARDIAL EFFUSION There is no evidence of significant pericardial effusion. Critical Notification Critical Value: No <Conclusion> The left ventricle is normal size. The left ventricular systolic function is normal and the ejection fraction is within normal range. The Ejection Fraction is 55-60%. There is no significant aortic valvular stenosis. Doppler and Color Flow revealed mild aortic regurgitation. Doppler and Color-flow revealed mild mitral regurgitation. Doppler and Color Flow revealed mild tricuspid regurgitation. The PA pressure was estimated at 42 mmHg. Signed by : Rhys Contreras MD Electronically Approved : 04/08/2019 16:46:12
== END | disposition home or self-care (01) ==
LOC: ECHO 07:29
PROVIDERS: ATTEND Internal Medicine Cardiovascular Disease
DX: I08.8 Other rheumatic multiple valve diseases (principal); E11.9 Type 2 diabetes mellitus without complications; Z86.73 Personal history of transient ischemic attack (TIA), and cerebral infarction without residual deficits
CPT/HCPCS: 78452; 93017; 93306; A9500; J2785

== ENCOUNTER → 2019-06-12 | Outpatient (CLI) | payer MEDICARE, OTHER ==
[~2019-06-12] MED LIST changes: -REGADENOSON 0.4 MG/5 ML DISP.SYRIN. IV ONE
--- NOTE | 2019-06-12 10:14 | PAIN ---
DATE OF SERVICE: 06/12/2019 PROGRESS NOTE FOR PAIN CLINIC DIAGNOSIS: Lumbar radiculopathy with lumbar degenerative disk disease and lumbar spinal stenosis. HISTORY OF PRESENT ILLNESS: The patient is a 73-year-old female, who returns for followup status post lumbar epidural steroid injections x 3 with only very minimal decrease in pain for a few days. The patient had been given information about spinal cord stimulator, has seen a psychologist regarding this and has been putt in a good category for spinal manipulations and implants. The patient reports her pain still across the low back into the right leg, lateral thigh, anterior thigh and medial thigh. The patient states it is a 10 on a scale of 10 at its worst over the past week, 8 on an average, 8 at its least and is an 8 today. The patient reports it is worse with walking, standing, changing positions, awakens her from sleep at night, especially on the right side if she lays on the right side. The patient reported it is aching and sharp in quality, sometimes radiating, sometimes severe with ambulation. The patient reports no loss of motor function, no new bowel or bladder incontinence or other complaints. PHYSICAL EXAMINATION: VITAL SIGNS: The patient's blood pressure is 120/71, pulse 67, respirations are 18, temperature is 98.3 degrees Fahrenheit, weight is 170 pounds. GENERAL: The patient is awake, alert, oriented, appropriate, very pleasant demeanor. HEENT: Normocephalic and atraumatic. Extraocular movements are intact and symmetrical. Oral cavity: Mucous membranes moist and pink; dentition is intact. NECK: Shows anterior throat supple without palpable lymphadenopathy noted. Swallow reflex symmetrical. CHEST: Shows normal on inspection. Breath sounds clear to auscultation bilaterally. HEART: Shows S1, S2 clear. No murmurs auscultated. ABDOMEN: Soft, nontender, nondistended. BACK: Shows spine grossly in the midline. EXTREMITIES: The patient's lower extremities show deep tendon reflexes 1+ in the patellar and tendo-calcaneus tendons. Motor exam is strong with 5/5 dorsiflexion, extension, quadriceps and hamstring flexion on the left and 4/5 on the right. Peripheral pulses are 1+ posterior tibial and symmetrical bilaterally. Options were discussed with the patient. The patient's old chart was reviewed as her current medication regimen updated. Current review of systems updated today as well. We will schedule the patient for a spinal cord stimulator trial with Valium given 10 mg to be taken 1 hour prior to the procedure. The patient will return to the clinic as scheduled. We will plan on spinal cord stimulator temporary lead placement at that time. BOWEN FENG MD DR: ZACKARY/racquel JOB#: [id number] / [id number]
== END | disposition home or self-care (01) ==
LOC: PNCL 08:29
PROVIDERS: ATTEND Anesthesiology
DX: M51.16 Intervertebral disc disorders with radiculopathy, lumbar region (principal); M48.061 Spinal stenosis, lumbar region without neurogenic claudication
CPT/HCPCS: G0463

== ENCOUNTER → 2019-06-26 | Outpatient (CLI) | payer MEDICARE, OTHER ==
[~2019-06-26] MED LIST changes: +LIDOCAINE 1% PF 2 ML VIAL. ONE
--- NOTE | 2019-06-26 20:40 | PAIN ---
DATE OF SERVICE: 06/26/2019 PROGRESS NOTE FOR PAIN CLINIC DIAGNOSES: Lumbar radiculopathy with lumbar degenerative disk disease, lumbar spinal stenosis. HISTORY OF PRESENT ILLNESS: The patient is a 73-year-old female who returns for followup status post lumbar epidural steroid injections x 3 and recent visit with neurosurgeon recommending no surgical interventions. We discussed with the patient at that time a spinal cord stimulator and she has before just now has seen her psychologist with readings in a good category for spinal interventions and spinal cord stimulator placement. I would like to proceed today. The patient was given 10 mg Valium to take prior to her arrival. When she did take that has a freight delivery driver who is her with her today as well. The patient reports still significant pain in the low back, bilateral lower extremities, somewhat worse on the right than the left posterior gluteus, posterior thigh, lateral thighs, anterior thighs, again right worse than left. The patient reports it is a 9 on a scale of 10 at its worst in the past week, 8 on average, 6 at its least and is a 6 today. The patient reports no new motor or sensory deficits, no new bowel or bladder incontinence or other complaints. PHYSICAL EXAMINATION: VITAL SIGNS: The patient's blood pressure is 92/57, pulse 119, respirations 16, temperature 97.6 degrees Fahrenheit, weight is 164 pounds. GENERAL: The patient is awake, alert, oriented, appropriate, very pleasant demeanor. HEENT: Shows normocephalic, atraumatic. Extraocular movements are intact and symmetrical. Oral cavity: Mucous membranes moist and pink. Dentition is intact. NECK: Shows anterior throat supple without palpable lymphadenopathy noted. Swallow reflex symmetrical. CHEST: Shows normal on inspection. Breath sounds clear to auscultation bilaterally. HEART: Shows S1, S2 clear. No murmurs auscultated. ABDOMEN: Soft, nontender, nondistended. No palpable organomegaly is noted. No rebound or guarding demonstrated. BACK: Shows spine grossly in the midline. Normal appearing thoracic kyphosis, some minor flattening of lumbar lordotic curvature. Lumbar paraspinous muscle shows symmetrical on inspection, on palpation shows some moderate tenderness diffusely bilaterally going diffusely without radiation. The patient shows good rotational motion of lumbar spine, both laterally as well as extension and flexion without significant difficulty. EXTREMITIES: Lower extremities show deep tendon reflexes 1+ in the patellar and tendo calcaneus tendons. Motor exam is strong with approximately 4 on a scale 5 on the right, 5/5 on the left with dorsiflexion, extension, quadriceps and hamstring flexion. Peripheral pulses are 1+ posterior tibial. No peripheral edema is noted. Options were discussed with the patient. The patient's old chart was reviewed as her current medication regimen updated. Current review of systems updated today as well. We will proceed with a spinal cord stimulator temporary lead placement x 2 with fluoroscopic guidance today. Risks were again discussed including, but not limited to bleeding, infection, possibility of epidural hematoma, subsequent neurologic compromise, dural puncture, headaches, spinal cord and/or nerve damage, exposure of fluoroscopy as well as poor results regarding pain control. The patient understands and wished to proceed. The patient will return to clinic in approximately 1 week for followup and was counseled as to return appointment, activity level and side effects to be aware of. DIAGNOSES: Lumbar radiculopathy with lumbar degenerative disk disease and lumbar spinal stenosis. PROCEDURE: Spinal cord stimulator temporary lead placement x 2 under sterile prep and drape using local anesthetic. The patient was placed in prone position after sterile prep and drape using C-arm fluoroscopic guidance and the external marker was placed over the T8 vertebral body and secured. This time, the lumbar spine was then again identified with the fluoroscopy and using 1% lidocaine anesthetized over the L3-4 interspace using a 14-gauge styletted Hustead needle, the epidural space was entered using preservative-free normal saline loss of resistance technique at this level with negative aspiration. First, the wire was then placed through the 14-gauge needle under direct fluoroscopic vision both AP and lateral views to assure posterior placement in the epidural space and midline. This was advanced to the top of the superior endplate of the T8 vertebral body again verified to be posterior and midline. At this time, second lead was placed using the same technique with lidocaine at the L4-5 level entrance with the needle entering the L3-4 interspace into the epidural space again with preservative-free normal saline loss of resistance technique. Negative aspiration was noted. The second spinal cord stimulator wire was then placed under direct visualization and advanced in the midline and posterior to the superior endplate overlying the T9 vertebral body and directly adjacent to the first wire. This was again verified in posterior epidural space placement as well as AP views showing midline placement. At this time, the needles and stylets were removed. 1% lidocaine was used to anesthetize the skin near the insertion sites of the wires and to use for suture securing, which was done with and a 2-0 silk and anchoring devices applied with the Nevro kit, again under sterile prep and technique. Mastisol and Steri-Strip was placed x 2. The patient tolerated the procedure well, had no complications. CONDITION AT DISCHARGE: Stable. The patient will follow up in approximately 1 week or sooner as necessary. BOWEN FENG MD DR: ZACKARY/racquel JOB#: [id number] / [id number]
== END ==
LOC: PNCL 12:44
PROVIDERS: ATTEND Anesthesiology
DX: M51.16 Intervertebral disc disorders with radiculopathy, lumbar region (principal); M48.061 Spinal stenosis, lumbar region without neurogenic claudication
CPT/HCPCS: 63650; C1897

== ENCOUNTER → 2019-07-03 | Outpatient (CLI) | payer MEDICARE, OTHER ==
[~2019-07-03] MED LIST changes: -LIDOCAINE 1% PF 2 ML VIAL. ONE
--- NOTE | 2019-07-03 12:52 | PAIN ---
DATE OF SERVICE: 07/03/2019 PROGRESS NOTE FOR PAIN CLINIC DIAGNOSIS: Lumbar radiculopathy with lumbar degenerative disk disease, lumbar spinal stenosis. HISTORY OF PRESENT ILLNESS: The patient is a 73-year-old female who returns for followup status post spinal cord stimulator temporary lead placement x 2. The patient did very well over the past week. She reports near 100% improvement with the spinal cord stimulator. The pain in the low back and the leg now completely gone by her report. She reports her pain as 0 on a scale of 10 at its worst, least and average, and is 0 today. The patient reports no new motor or sensory deficits, no new changes. Very pleased with her progress, very pleased with the results with the stimulator system. The patient reports no new changes, no new bowel or bladder incontinence or other complaints. No difficulty with the leads themselves or the bandaging. PHYSICAL EXAMINATION: VITAL SIGNS: The patient's blood pressure is 126/58, pulse 75, respirations 18, temperature 98.3 degrees Fahrenheit, height is 5 feet 3 inches, weight is 167 pounds. GENERAL: The patient is awake, alert, oriented, appropriate, very pleasant demeanor. The patient is accompanied by her . HEENT: Shows normocephalic, atraumatic. Extraocular movements are intact and symmetrical. Oral cavity; mucous membranes moist and pink. NECK: Shows anterior throat supple. BACK: Shows spine grossly in the midline. The patient's lumbar spine shows well bandaged spinal cord stimulator leads. Bandages were taken down and area examined showing no erythema, no tenderness, no exudate or drainage. Under sterile technique, the patient's sutures were removed and the leads were removed x 2 with tips intact. Sites clean and dry. PLAN: Options were discussed with the patient. The patient's old chart was reviewed. Her current medication regimen updated. Current review of systems updated today as well and we will make arrangements for permanent stimulator placement as she did very well with the trial. I would like to proceed with permanent stimulator placement. BOWEN FENG MD DR: ZACKARY/racquel JOB#: [id number] / [id number]
== END | disposition home or self-care (01) ==
LOC: PNCL 12:00
PROVIDERS: ATTEND Anesthesiology
DX: M51.16 Intervertebral disc disorders with radiculopathy, lumbar region (principal); M48.061 Spinal stenosis, lumbar region without neurogenic claudication
CPT/HCPCS: G0463

== ENCOUNTER 2019-08-28 11:48 | Inpatient (IN) | payer MEDICARE ==
[~2019-08-28] VITALS: Ht 160 cm; Wt 79.9 kg
[~2019-08-28 11:48] MED LIST changes: +OMEP-229 PO; -OMEP20CA10 PO
--- NOTE | 2019-08-28 12:26 | RAD ---
Examination: CT CODE STROKE HEAD WO History: Right upper extremity weakness Comparison/Correlation: 12/07/2017 CT head without contrast Findings: Axial images were obtained without contrast. Ventricles are normal size. Atrophy is present. Chronic ischemic changes and white matters present. There is low-attenuation extending to the right parietal region superiorly which appears to represent an infarct. No change at this site compared to the prior exam. No midline shift. No bony destructive finding. Mucosal thickening of the ethmoid air cells noted. Globes and optic nerves are unremarkable. Impression: No intracranial hemorrhage. Advanced chronic ischemic changes in the white matter. Old right parietal infarct. No new infarct. On 08/28/2019 at 12:23 PM, results were reported to the referring emergency room provider. PQRS Compliance Statement: One or more of the following individualized dose reduction techniques were utilized for this examination: 1. Automated exposure control 2. Adjustment of the mA and/or kV according to patient size 3. Use of iterative reconstruction technique Electronically signed by: Tomas Simmons MD (08/28/2019 12:23 PM) [facility]
[2019-08-28 12:32] LABS: BILIRUBIN,URINE NEGATIVE (NEG); CLARITY,URINE CLEAR; COLOR,URINE YELLOW; NITRITE,URINE NEGATIVE (NEG); PH,URINE 6.5; PROTEIN,URINE NEGATIVE (NEG-TRACE); UROBILINOGEN,URINE 0.2 mg/dL (0.2 mg/dL)
[2019-08-28 12:39] LABS: BARBITURATES NEG (NEG); BENZODIAZEPINES NEG (NEG); CANNABINOIDS NEG (NEG); COCAINE NEG (NEG); METHADONE NEG (NEG); OPIATES POS (NEG); PHENCYCLIDINE NEG (NEG)
[2019-08-28 12:40] LABS: AMPHETAMINE/METHAMPHETAMINE NEG (NEG)
[2019-08-28 12:41] LABS: BACTERIA,URINE 0 /HPF (0-FEW); RBC,URINE 0 /HPF (0-2); WBC,URINE 0 /HPF (0-4)
[2019-08-28 13:02] LABS: CALCIUM 9.2 mg/dL (8.5-10.1); CREATININE 1.1 mg/dL (0.6-1.0); GFR 48.6; POTASSIUM 3.8 mmol/L (3.5-5.1)
[2019-08-28 13:06] LABS: PROTHROMBIN TIME PATIENT 12.2 SEC (11.7-14.0)
[2019-08-28 13:07] LABS: BASO # 0.1 x10^3/uL (0.0-0.2); BASO % 1 % (0-3); EOS # 0.1 x10^3/uL (0.0-0.7); EOS % 1 % (0-3); HEMATOCRIT 38.2 % (36.0-47.0); HEMOGLOBIN 12.9 g/dL (12.0-15.5); LYMPH # 2.4 x10^3/uL (1.0-4.8); LYMPH % 33 % (24-48); MEAN CORPUSCULAR HEMOGLOBIN 32 pg (25-35); MEAN CORPUSCULAR HGB CONC 34 g/dL (31-37); MEAN CORPUSCULAR VOLUME 96 fL (79-100); MONO # 0.6 x10^3/uL (0.0-1.1); MONO % 8 % (0-9); NEUT # 4.1 x10^3/uL (1.8-7.7); NEUT % 57 % (31-73); PLATELET COUNT 328 x10^3/uL (140-400); RED CELL DISTRIBUTION WIDTH 14.4 % (11.5-14.5); WHITE BLOOD COUNT 7.3 x10^3/uL (4.0-11.0)
[2019-08-28 13:08] LABS: ALBUMIN 3.8 g/dL (3.4-5.0); ALBUMIN/GLOBULIN RATIO 0.9 (1.0-1.7); MAGNESIUM 2.2 mg/dL (1.8-2.4); TOTAL BILIRUBIN 0.4 mg/dL (0.2-1.0); TOTAL PROTEIN 7.9 g/dL (6.4-8.2)
--- NOTE | 2019-08-28 13:08 | PDOC1 ---
History and Physical Date of Admission Date of Admission DATE: 08/28/19 TIME: 13:07 Identification/Chief Complaint Chief Complaint 73 year old female with history of TIA, hypertension, high cholesterol, right breast cancer and treated, who presents to the ED today complaining of right arm going numb for couple seconds today around 10:30 while she was doing her makeup, she reports she felt too weak to the right upper extremity.///states symptoms improved immediately. reports she has been drooling for 3 days and also noted numbness on her face that began 3 days ago. She is also complaining of a 7 out of 10 frontal headache for the last 3 days. Patient denies any chest pain, shortness of breath. At this point in the ED she states her symptoms are improving. reports she's had similar symptoms before and has been following up with Dr. Bond we informed her there is nothing wrong with her. Past Medical History Past Medical History Past Medical History Past Medical History Past Medical History Cardiovascular: HTN, Hyperlipidemia Pulmonary: Pneumonia GI: Diverticulosis (/itis), GERD, Hemorrhoids, Peptic Ulcer disease, Other (hiatal hernia, diarrhea) Heme/Onc: Cancer (breast) Musculoskeletal: low back pain (degenerative disc disease), Osteoarthritis, O ther (neck pain, has had epidural injection) Endocrine: Osteoporosis Past Surgical History Past Surgical History: Cataract Removal, Hysterectomy (oophorectomy), Other (breast lumpectomy and removal of lymph nodes, left knee, left heel spur) Family History Family History: CAD Social History Social History , quit smoking years ago, no alcohol Cardiovascular: HTN, Hyperlipidemia Pulmonary: Pneumonia GI: Diverticulosis (/itis), GERD, Hemorrhoids, Peptic Ulcer disease, Other (hiatal hernia, diarrhea) Heme/Onc: Cancer (breast) Musculoskeletal: low back pain (degenerative disc disease), Osteoarthritis, Other (neck pain, has had epidural injection) Endocrine: Osteoporosis Past Surgical History Past Surgical History: Cataract Removal, Hysterectomy (oophorectomy), Other (breast lumpectomy and removal of lymph nodes, left knee, left heel spur) Cardiovascular: HTN, Hyperlipidemia Pulmonary: Pneumonia CENTRAL NERVOUS SYSTEM: CVA GI: Diverticulosis, GERD, Hemorrhoids, Peptic Ulcer disease, Other Heme/Onc: Cancer Musculoskeletal: low back pain, Osteoarthritis, Other Endocrine: Osteoporosis Past Surgical History Past Surgical History: Cataract Removal, Hysterectomy, Other Family History Family History: Hypertension Social History Smoke: No ALCOHOL: none Drugs: None Current Medications Current Medications Active Scripts Active Reported Multivitamins (Multivitamin) 1 Each Tablet 1 Tab PO DAILY Gabapentin (Gabapentin) 300 Mg Capsule 300 Mg PO [id number] Losartan-Hctz 100-25 Mg Tab (Losartan/Hydrochlorothiazide) 1 Each Tablet 1 Tab PO DAILY Aspir 81 (Aspirin) 81 Mg Tablet.dr 81 Mg PO Omeprazole 20 Mg Capsule.dr 20 Mg PO DAILY Allergies Allergies: Coded Allergies: No Known Drug Allergies (Unverified , 12/07/17) ROS Review of System Review of Systems Review of Systems Constitutional: Denies fever or chills [] Eyes: Denies change in visual acuity, redness, or eye pain [] HENT: Denies nasal congestion or sore throat [] Respiratory: Denies cough or shortness of breath [] Cardiovascular: No additional information not addressed in HPI [] GI: Denies abdominal pain, nausea, vomiting, bloody stools or diarrhea [] : Denies dysuria or hematuria [] Musculoskeletal: Denies back pain or joint pain [] Integument: Denies rash or skin lesions [] Neurologic: Reports right arm weakness or numbness to the right side of the face, drooling. , resolving Denies headache, focal weakness or sensory changes [] 14 PT systems were reviewed and found to be within normal limits, except as documented Respiratory: No: Cough, Hemoptysis, Orthopnea, Pleuritic Pain, Shortness of susie ath, SOB with excertion, Sputum Changes, Stridor, Tachypnea, Wheezing, Other Cardiovascular: No Chest Pain, No Palpitations, No Orthopnea, No Paroxysmal Noc. Dyspnea, No Edema, No Lt Headedness, No Other Neurological: Yes Numbness/Tingling Physical Exam Physical Exam Physical Exam Physical Exam Constitutional: Well developed, well nourished, no acute distress, non-toxic appearance. [] HENT: Normocephalic, atraumatic, bilateral external ears normal, oropharynx moist, no oral exudates, nose normal. [] Eyes: PERRLA, EOMI, conjunctiva normal, no discharge. [] Neck: Normal range of motion, no tenderness, supple, no stridor. [] Cardiovascular:Heart rate regular rhythm, no murmur [] Lungs & Thorax: Bilateral breath sounds clear to auscultation [] Abdomen: Bowel sounds normal, soft, no tenderness, no masses, no pulsatile masses. [] Skin: Warm, dry, no erythema, no rash. [] Back: No tenderness, no CVA tenderness. [] Extremities: No tenderness, no cyanosis, no clubbing, ROM intact, no edema. 5/5 strength to bilateral upper and lower extremities Neurologic: Alert and oriented X 3, normal motor function, normal sensory function, no focal deficits noted. Cranial nerves II through XII intact. Slight decrease in sensation on the right side of the face than the left. Psychologic: Affect normal, judgement normal, mood normal. [] General: Alert, Oriented X3, Cooperative, No acute distress HEENT: Mucous membr. moist/pink Lungs: Clear to auscultation, Normal air movement Breasts: Not examined Abdomen: Normal bowel sounds, Soft Rectal Exam: not examined PELVIC: Examination not indicated Extremities: No cyanosis Neuro: Normal speech, Cranial nerves 3-12 NL Psych/Mental Status: Mental status NL, Mood NL Vitals Vitals Vital Signs Date Time Temp Pulse Resp B/P (MAP) Pulse Ox O2 Delivery O2 Flow Rate FiO2 08/28/19 12:00 98.2 73 20 168/77 (107) 97 Room Air 98.2 Labs Labs Laboratory Tests Test 08/28/19 12:11 08/28/19 12:15 Glucose (Fingerstick) 97 mg/dL (70-99) Urine Collection Type Unknown Urine Color Yellow Urine Clarity Clear Urine pH 6.5 Urine Specific [place] 1.010 Urine Protein Negative mg/dL (NEG-TRACE) Urine Glucose (UA) Negative mg/dL (NEG) Urine Ketones (Stick) Negative mg/dL (NEG) Urine Blood Negative (NEG) Urine Nitrite Negative (NEG) Urine Bilirubin Negative (NEG) Urine Urobilinogen Dipstick 0.2 mg/dL (0.2 mg/dL) Urine Leukocyte Esterase Negative (NEG) Urine RBC 0 /HPF (0-2) Urine WBC 0 /HPF (0-4) Urine Bacteria 0 /HPF (0-FEW) Urine Opiates Screen Pos (NEG) Urine Methadone Screen Neg (NEG) Urine Barbiturates Neg (NEG) Urine Phencyclidine Screen Neg (NEG) Urine Amphetamine/Methamphetamine Neg (NEG) Urine Benzodiazepines Screen Neg (NEG) Urine Cocaine Screen Neg (NEG) Urine Cannabinoids Screen Neg (NEG) Urine Ethyl Alcohol Neg (NEG) Laboratory Tests Test 08/28/19 12:11 08/28/19 12:15 Glucose (Fingerstick) 97 mg/dL (70-99) Urine Collection Type Unknown Urine Color Yellow Urine Clarity Clear Urine pH 6.5 Urine Specific [place] 1.010 Urine Protein Negative mg/dL (NEG-TRACE) Urine Glucose (UA) Negative mg/dL (NEG) Urine Ketones (Stick) Negative mg/dL (NEG) Urine Blood Negative (NEG) Urine Nitrite Negative (NEG) Urine Bilirubin Negative (NEG) Urine Urobilinogen Dipstick 0.2 mg/dL (0.2 mg/dL) Urine Leukocyte Esterase Negative (NEG) Urine RBC 0 /HPF (0-2) Urine WBC 0 /HPF (0-4) Urine Bacteria 0 /HPF (0-FEW) Urine Opiates Screen Pos (NEG) Urine Methadone Screen Neg (NEG) Urine Barbiturates Neg (NEG) Urine Phencyclidine Screen Neg (NEG) Urine Amphetamine/Methamphetamine Neg (NEG) Urine Benzodiazepines Screen Neg (NEG) Urine Cocaine Screen Neg (NEG) Urine Cannabinoids Screen Neg (NEG) Urine Ethyl Alcohol Neg (NEG) Images Images EXAM: Two-dimensional and M-mode echocardiogram with Doppler and color Doppler. Other Information Quality : Good INDICATION Chest Pain 2D DIMENSIONS RVDd 2.9 (2.9-3.5cm) Left Atrium(2D) 4.0 (1.6-4.0cm) IVSd 0.9 (0.7-1.1cm) Aortic Root(2D) 2.7 (2.0-3.7cm) LVDd 5.1 (3.9-5.9cm) LVOT Diameter 2.0 (1.8-2.4cm) PWd 0.9 (0.7-1.1cm) LVDs 3.4 (2.5-4.0cm) FS (%) 34.2 % SV 79.2 ml LVEF(%) 62.9 (>50%) Aortic Valve AoV Peak Reginald. 188.0cm/s AoV VTI 40.1cm AO Peak GR. 14.1mmHg LVOT Peak Reginald. 109.8cm/s AO Mean GR. 8mmHg JASPER (VMAX) 1.87cm2 JASPER (VTI) 2.10cm2 AI P 1/2 Time 611ms Mitral Valve MV E Velocity 99.8cm/s MV DECEL TIME 169ms MV A Velocity 90.7cm/s E/A Ratio 1.1 Tricuspid Valve TR P. Velocity 307cm/s RAP ESTIMATE 8mmHg TR Peak Gr. 38mmHg RVSP 46mmHg Pulmonary Vein S1 Velocity 43.7cm/s D2 Velocity 32.8cm/s LEFT VENTRICLE The left ventricle is normal size. There is normal left ventricular wall thickness. The left ventricular systolic function is normal and the ejection fraction is within normal range. The Ejection Fraction is 55-60%. There is normal LV segmental wall motion. Transmitral Doppler flow pattern is Grade I- abnormal relaxation pattern. RIGHT VENTRICLE The right ventricle is normal size. The right ventricular systolic function is normal. ATRIA The left atrium is mildly dilated. The right atrium size is normal. The inter atrial septum is intact with no evidence for an atrial septal defect or patent foramen ovale as noted on 2-D or Doppler imaging. AORTIC VALVE The aortic valve is calcified but opens well. Doppler and Color Flow revealed mild aortic regurgitation. There is no significant aortic valvular stenosis. MITRAL VALVE The mitral valve is normal in structure and function. There is no evidence of mitral valve prolapse. There is no mitral valve stenosis. Doppler and Color-flow revealed mild mitral regurgitation. TRICUSPID VALVE The tricuspid valve is normal in structure and function. Doppler and Color Flow revealed mild tricuspid regurgitation. The PA pressure was estimated at 42 mmHg. There is no tricuspid valve stenosis. PULMONIC VALVE The pulmonic valve is not well visualized. Doppler and Color Flow revealed trace to mild pulmonic valvular regurgitation. There is no pulmonic valvular stenosis. GREAT VESSELS The aortic root is normal in size. The ascending aorta is normal in size. The IVC is dilated and collapses >50% with inspiration. PERICARDIAL EFFUSION There is no evidence of significant pericardial effusion. Critical Notification Critical Value: No <Conclusion> The left ventricle is normal size. The left ventricular systolic function is normal and the ejection fraction is within normal range. The Ejection Fraction is 55-60%. There is no significant aortic valvular stenosis. Doppler and Color Flow revealed mild aortic regurgitation. Doppler and Color-flow revealed mild mitral regurgitation. Doppler and Color Flow revealed mild tricuspid regurgitation. The PA pressure was estimated at 42 mmHg. Signed by : Rhys Contreras MD Electronically Approved : 04/08/2019 16:46:12 PATIENT: MICHAEL LUTHER ACCOUNT: [id number] : 1945 LOCATION: ER AGE: 73 SEX: F EXAM STATUS: PRE ER ORD. PHYSICIAN: YOLA RIVERA APRN REASON: right arm weakness PROCEDURE: CT CODE STROKE HEAD WO Examination: CT CODE STROKE HEAD WO History: Right upper extremity weakness Comparison/Correlation: 12/07/2017 CT head without contrast Findings: Axial images were obtained without contrast. Ventricles are normal size. Atrophy is present. Chronic ischemic changes and white matters present. There is low-attenuation extending to the right parietal region superiorly which appears to represent an infarct. No change at this site compared to the prior exam. No midline shift. No bony destructive finding. Mucosal thickening of the ethmoid air cells noted. Globes and optic nerves are unremarkable. Impression: No intracranial hemorrhage. Advanced chronic ischemic changes in the white matter. Old right parietal infarct. No new infarct. On 08/28/2019 at 12:23 PM, results were reported to the referring emergency room provider. PQRS Compliance Statement: One or more of the following individualized dose reduction techniques were utilized for this examination: 1. Automated exposure control 2. Adjustment of the mA and/or kV according to patient size 3. Use of iterative reconstruction technique Electronically signed by: Tomas Mg MD (08/28/2019 12:23 PM) [facility] Examination: CT CODE STROKE HEAD WO History: Right upper extremity weakness Comparison/Correlation: 12/07/2017 CT head without contrast Findings: Axial images were obtained without contrast. Ventricles are normal size. Atrophy is present. Chronic ischemic changes and white matters present. There is low-attenuation extending to the right parietal region superiorly which appears to represent an infarct. No change at this site compared to the prior exam. No midline shift. No bony destructive finding. Mucosal thickening of the ethmoid air cells noted. Globes and optic nerves are unremarkable. Impression: No intracranial hemorrhage. Advanced chronic ischemic changes in the white matter. Old right parietal infarct. No new infarct. On 08/28/2019 at 12:23 PM, results were reported to the referring emergency room provider. PQRS Compliance Statement: One or more of the following individualized dose reduction techniques were utilized for this examination: 1. Automated exposure control 2. Adjustment of the mA and/or kV according to patient size 3. Use of iterative reconstruction technique Electronically signed by: Tomas Mg MD (08/28/2019 12:23 PM) [facility] DICTATED and SIGNED BY: TOMAS MG MD DATE: 08/28/19 1223 VTE Prophylaxis Ordered VTE Prophylaxis Devices: Yes VTE Pharmacological Prophylaxi: Yes Assessment/Plan Assessment/Plan impression TIA, prior CVA on ct head 08/28 No intracranial hemorrhage. Advanced chronic ischemic changes in the [place]. Old right parietal infarct. No new infarct. Prior right parietal occipital infarct, chronic, as well as multiple old lacunar strokes hx Mechanical falls, ON RECENT ECHO, Doppler and Color Flow revealed mild tricuspid regurgitation. PA pressure was estimated at 42 mmHg.C/W MODERATE PULM HTN hypertension GERD DIABETES plan admit neurology consult NEUROCHECKS Q 4 HRS pt/ot GILL KRISHNAMURTHY MD Aug 28, 2019 13:08
[2019-08-28 13:15] LABS: CREATINE KINASE 47 U/L (26-192)
--- NOTE | 2019-08-28 13:23 | RAD ---
PORTABLE CHEST 1V History: Right arm weakness. Comparison: December 07, 2017 Findings: No consolidation or pleural effusion. Portable technique accentuates cardiac size. No pneumothorax. Spinal stimulator lead noted. Impression: 1. No acute cardiopulmonary process. Electronically signed by: Sami Montenegro DO (08/28/2019 1:20 PM) [id number]
--- NOTE | 2019-08-28 13:25 | EKG ---
[facility] [address] [place] [address] Test Date: 2019-08-28 Test Time: 12:04:30 Pat Name: MICHAEL LUTHER Department: Room: Gender: F Event Security Officer: : 1945 Requested By: YOLA RIVERA Order Number: [id number] Reading MD: Measurements Intervals [place] Rate: 71 P: 48 DE: 140 QRS: 59 QRSD: 94 T: 38 QT: 390 QTc: 429 Interpretive Statements SINUS RHYTHM NORMAL ECG RI6.01 No previous ECG available for comparison
[2019-08-28 15:15] VITALS: BP 134/61
[2019-08-28] MEDS ORDERED: ONDANSETRON PF 4 MG/2 ML VIAL. IV PRN (15:15)
[2019-08-28] MEDS ORDERED: ACETAMINOPHEN 325 MG TABLET. PO PRN (15:15)
[2019-08-28] MEDS ORDERED: GABA600T7 PO (16:01)
[2019-08-28] MEDS ORDERED: PIOG30TA41 PO (16:01)
[2019-08-28] MEDS ORDERED: HYDR-2769 PO (16:01)
[2019-08-28] MEDS ORDERED: CHOL40003 PO (16:01)
--- NOTE | 2019-08-28 17:34 | PHYS DOC ---
Past Medical History Past Medical History: Cancer, CVA, High Cholesterol, Hypertension, TIA, Other Additional Past Medical Histor: R BREAST Past Surgical History: Cholecystectomy, Hysterectomy, Other Additional Past Surgical Histo: L knee; LEFT TOES Alcohol Use: Occasionally Drug Use: None Adult General Chief Complaint Chief Complaint: NEURO SYMPTOMS/DEFICITS [facility] HPI Patient is a 73 year old female with history of TIA, hypertension, high cholesterol, right breast cancer and treated, who presents to the ED today complaining of right arm going numb for couple seconds today around 10:30 while she was doing her makeup, she reports she felt too weak to the right upper ext remity. Patient states symptoms improved immediately. She reports she has been drooling for 3 days and also noted numbness on her face that began 3 days ago. She is also complaining of a 7 out of 10 frontal headache for the last 3 days. Patient denies any chest pain, shortness of breath. At this point in the ED she states her symptoms are improving. Patient reports she's had similar symptoms before and has been following up with Dr. Bond we informed her there is nothing wrong with her. She reports she prefers not to be seen by Dr. Bond Review of Systems Review of Systems Constitutional: Denies fever or chills [] Eyes: Denies change in visual acuity, redness, or eye pain [] HENT: Denies nasal congestion or sore throat [] Respiratory: Denies cough or shortness of breath [] Cardiovascular: No additional information not addressed in HPI [] GI: Denies abdominal pain, nausea, vomiting, bloody stools or diarrhea [] : Denies dysuria or hematuria [] Musculoskeletal: Denies back pain or joint pain [] Integument: Denies rash or skin lesions [] Neurologic: Reports right arm weakness or numbness to the right side of the face, drooling. Denies headache, focal weakness or sensory changes [] All other systems were reviewed and found to be within normal limits, except as documented in this note. Current Medications Current Medications Current Medications Medications (Trade) Dose Ordered Sig/Nikita Start Time Stop Time Status Last Admin Dose Admin Acetaminophen (Tylenol) 650 mg PRN Q4HRS PRN 08/28/19 15:15 08/29/19 15:14 Ondansetron HCl (Zofran) 4 mg PRN Q8HRS PRN 08/28/19 15:15 08/29/19 15:14 Allergies Allergies Allergies Coded Allergies Type Severity Reaction Last Updated Verified No Known Drug Allergies 12/07/17 No Physical Exam Physical Exam Constitutional: Well developed, well nourished, no acute distress, non-toxic appearance. [] HENT: Normocephalic, atraumatic, bilateral external ears normal, oropharynx moist, no oral exudates, nose normal. [] Eyes: PERRLA, EOMI, conjunctiva normal, no discharge. [] Neck: Normal range of motion, no tenderness, supple, no stridor. [] Cardiovascular:Heart rate regular rhythm, no murmur [] Lungs & Thorax: Bilateral breath sounds clear to auscultation [] Abdomen: Bowel sounds normal, soft, no tenderness, no masses, no pulsatile masses. [] Skin: Warm, dry, no erythema, no rash. [] Back: No tenderness, no CVA tenderness. [] Extremities: No tenderness, no cyanosis, no clubbing, ROM intact, no edema. 5/5 strength to bilateral upper and lower extremities Neurologic: Alert and oriented X 3, normal motor function, normal sensory function, no focal deficits noted. Cranial nerves II through XII intact. Slight decrease in sensation on the right side of the face than the left. Psychologic: Affect normal, judgement normal, mood normal. [] Current Patient Data Vital Signs Vital Signs Date Time Temp Pulse Resp B/P (MAP) Pulse Ox O2 Delivery O2 Flow Rate FiO2 08/28/19 16:51 Room Air 08/28/19 15:15 97.9 66 18 134/61 (85) 96 97.9 Lab Values Laboratory Tests Test 08/28/19 12:11 08/28/19 12:15 08/28/19 12:37 Glucose (Fingerstick) 97 mg/dL (70-99) Urine Collection Type Unknown Urine Color Yellow Urine Clarity Clear Urine pH 6.5 Urine Specific [place] 1.010 Urine Protein Negative mg/dL (NEG-TRACE) Urine Glucose (UA) Negative mg/dL (NEG) Urine Ketones (Stick) Negative mg/dL (NEG) Urine Blood Negative (NEG) Urine Nitrite Negative (NEG) Urine Bilirubin Negative (NEG) Urine Urobilinogen Dipstick 0.2 mg/dL (0.2 mg/dL) Urine Leukocyte Esterase Negative (NEG) Urine RBC 0 /HPF (0-2) Urine WBC 0 /HPF (0-4) Urine Bacteria 0 /HPF (0-FEW) Urine Opiates Screen Pos (NEG) Urine Methadone Screen Neg (NEG) Urine Barbiturates Neg (NEG) Urine Phencyclidine Screen Neg (NEG) Urine Amphetamine/Methamphetamine Neg (NEG) Urine Benzodiazepines Screen Neg (NEG) Urine Cocaine Screen Neg (NEG) Urine Cannabinoids Screen Neg (NEG) Urine Ethyl Alcohol Neg (NEG) White Blood Count 7.3 x10^3/uL (4.0-11.0) Red Blood Count 4.00 x10^6/uL (3.50-5.40) Hemoglobin 12.9 g/dL (12.0-15.5) Hematocrit 38.2 % (36.0-47.0) Mean Corpuscular Volume 96 fL (79-100) Mean Corpuscular Hemoglobin 32 pg (25-35) Mean Corpuscular Hemoglobin Concent 34 g/dL (31-37) Red Cell Distribution Width 14.4 % (11.5-14.5) Platelet Count 328 x10^3/uL (140-400) Neutrophils (%) (Auto) 57 % (31-73) Lymphocytes (%) (Auto) 33 % (24-48) Monocytes (%) (Auto) 8 % (0-9) Eosinophils (%) (Auto) 1 % (0-3) Basophils (%) (Auto) 1 % (0-3) Neutrophils # (Auto) 4.1 x10^3/uL (1.8-7.7) Lymphocytes # (Auto) 2.4 x10^3/uL (1.0-4.8) Monocytes # (Auto) 0.6 x10^3/uL (0.0-1.1) Eosinophils # (Auto) 0.1 x10^3/uL (0.0-0.7) Basophils # (Auto) 0.1 x10^3/uL (0.0-0.2) Prothrombin Time 12.2 SEC (11.7-14.0) Prothrombin Time INR 0.9 (0.8-1.1) Activated Partial Thromboplast Time 27 SEC (24-38) Sodium Level 140 mmol/L (136-145) Potassium Level 3.8 mmol/L (3.5-5.1) Chloride Level 102 mmol/L (98-107) Carbon Dioxide Level 32 mmol/L (21-32) Anion Gap 6 (6-14) Blood Urea Nitrogen 15 mg/dL (7-20) Creatinine 1.1 mg/dL (0.6-1.0) H Estimated GFR (Cockcroft-Gault) 48.6 BUN/Creatinine Ratio 14 (6-20) Glucose Level 100 mg/dL (70-99) H Calcium Level 9.2 mg/dL (8.5-10.1) Magnesium Level 2.2 mg/dL (1.8-2.4) Total Bilirubin 0.4 mg/dL (0.2-1.0) Aspartate Amino Transferase (AST) 16 U/L (15-37) Alanine Aminotransferase (ALT) 12 U/L (14-59) L Alkaline Phosphatase 103 U/L (46-116) Creatine Kinase 47 U/L (26-192) Creatine Kinase MB (Mass) 0.5 ng/mL (0.0-3.6) Creatine Kinase MB Relative Index % (0-4) Troponin I Quantitative < 0.017 ng/mL (0.000-0.055) TM-Ujh-L-Type Natriuretic Peptide 257 pg/mL (0-124) H Total Protein 7.9 g/dL (6.4-8.2) Albumin 3.8 g/dL (3.4-5.0) Albumin/Globulin Ratio 0.9 (1.0-1.7) L Thyroid Stimulating Hormone (TSH) 1.161 uIU/mL (0.358-3.74) Laboratory Tests 08/28/19 12:37 Laboratory Tests 08/28/19 12:37 EKG EKG [address] Neff sinus rhythm heart rate 71 no STEMI[] Radiology/Procedures Radiology/Procedures []PROCEDURE: PORTABLE CHEST 1V PORTABLE CHEST 1V History: Right arm weakness. Comparison: December 07, 2017 Findings: No consolidation or pleural effusion. Portable technique accentuates cardiac size. No pneumothorax. Spinal stimulator lead noted. Impression: 1. No acute cardiopulmonary process. Electronically signed by: Sami Montenegro DO (08/28/2019 1:20 PM) [id number] DICTATED and SIGNED BY: SAMI MONTENEGRO DO DATE: 08/28/19 1325 PROCEDURE: CT CODE STROKE HEAD WO Examination: CT CODE STROKE HEAD WO History: Right upper extremity weakness Comparison/Correlation: 12/07/2017 CT head without contrast Findings: Axial images were obtained without contrast. Ventricles are normal size. Atrophy is present. Chronic ischemic changes and white matters present. There is low-attenuation extending to the right parietal region superiorly which appears to represent an infarct. No change at this site compared to the prior exam. No midline shift. No bony destructive finding. Mucosal thickening of the ethmoid air cells noted. Globes and optic nerves are unremarkable. Impression: No intracranial hemorrhage. Advanced chronic ischemic changes in the white matter. Old right parietal infarct. No new infarct. On 08/28/2019 at 12:23 PM, results were reported to the referring emergency room provider. PQRS Compliance Statement: One or more of the following individualized dose reduction techniques were utilized for this examination: 1. Automated exposure control 2. Adjustment of the mA and/or kV according to patient size 3. Use of iterative reconstruction technique Electronically signed by: Tomas Mg MD (08/28/2019 12:23 PM) [facility] DICTATED and SIGNED BY: TOMAS MG MD DATE: 08/28/19 1223 Course & Med Decision Making Course & Med Decision Making Pertinent Labs and Imaging studies reviewed. (See chart for details) This is a 73-year-old female patient with previous history of CVA and TIA presenting to the ED today complaining of right arm weakness that began at 10:30 and has subsided on arrival to the ED, numbness to the face with drooling that began [address] of the head is negative. Labs are negative for any acute findings. Patient's symptoms have improved tremendously on arrival to the ED. She is not at [facility] candidate. She is hesitant about seeing Dr. Bond who is telephone lines repairer today. I requested patient to let us do the consult and have Dr. Bond see her as an inpatient considering she has to be seen by the doctor telephone lines repairer. Stroke scale [address] Us who accepted patient for admission. Dragon Disclaimer Dragon Disclaimer This electronic medical record was generated, in whole or in part, using a voice recognition dictation system. NIHSS Stroke Scale NIH Stroke Scale: NIH Stroke Scale Response (Comments) Value Level of Consciousness: 0 Alert/Responsive 0 LOC Questions: 0 Answers both correctly 0 LOC Commands: 0 Performs both tasks 0 Best Gaze: 0 Normal 0 Visual: 0 No visual loss 0 Facial Palsy: 1 Minor paralysis 1 Motor - Left Arm 0 No drift 0 Motor - Right Arm 0 No drift 0 Motor - Left Leg 0 No drift 0 Motor: Right Leg 0 No drift 0 Limb Ataxia: 1 One limb 1 Sensory: 0 No loss 0 Best Language: 0 Normal 0 Dysathria: 0 Normal 0 Extinction and Inattention: 0 Normal 0 Total 2 Departure Departure Impression: Primary Impression: Headache Additional Impression: Right arm weakness Disposition: 09 ADMITTED INPATIENT Condition: STABLE Problem Qualifiers Primary Impression: Headache Headache type: unspecified Headache chronicity pattern: unspecified pattern Intractability: not intractable Qualified Codes: R51 - Headache YOLA RIVERA APRN Aug 28, 2019 17:34
[2019-08-28 19:00] VITALS: BP 137/69
[2019-08-28] MEDS: HYDROcodone/APAP 10/325 1 TAB TABLET PO PRN (19:18)
[2019-08-28] MEDS: GABAPENTIN 300 MG CAPSULE. PO SCH (20:28)
[2019-08-28 23:00] VITALS: BP 97/36
[2019-08-29 03:00] VITALS: BP 116/49
[2019-08-29] MEDS: HYDROcodone/APAP 10/325 1 TAB TABLET PO PRN ×2 (05:58→21:01)
[2019-08-29 07:00] VITALS: BP 148/65
[2019-08-29] MEDS: PANTOPRAZOLE 40 MG TABLET.DR. PO SCH (07:41)
--- NOTE | 2019-08-29 08:25 | PDOC ---
PROGRESS NOTES History of Present Illness History of Present Illness VTE Prophylaxis Ordered VTE Prophylaxis Devices: Yes VTE Pharmacological Prophylaxi: Yes Assessment/Plan Assessment/Plan impression Small acute left centrum semiovale infarct. MRI 08/29 Extensive sequelae of chronic microvascular ischemia. Moderate brain parenchymal volume loss. Small chronic right parietal occipital cortical infarct and tiny right cerebellar infarct. prior CVA on ct head 08/28 No intracranial hemorrhage. Advanced chronic ischemic changes in the white-matter. Old right parietal infarct. No new infarct. Prior right parietal occipital infarct, chronic, as well as multiple old lacunar strokes hx Mechanical falls, ON RECENT ECHO, Doppler and Color Flow revealed mild tricuspid regurgitation. PA pressure was estimated at 42 mmHg.C/W MODERATE PULM HTN hypertension GERD DIABETES plan admit neurology consult NEUROCHECKS Q 4 HRS pt/ot ST 37 MIN PT EXAM, CHART REVIEW, > 50% OF TIME SPENT WITH EXAM, CHART REVIEW, PT CARE COORDINATION Vitals Vitals Vital Signs Date Time Temp Pulse Resp B/P (MAP) Pulse Ox O2 Delivery O2 Flow Rate FiO2 08/29/19 07:00 97.5 74 16 148/65 (92) 92 Room Air 97.5 Physical Exam General: Alert, Oriented X3, Cooperative, No acute distress Heart: Regular rate, Normal S1 Lungs: Clear Abdomen: Normal bowel sounds, Soft Extremities: No cyanosis, No tenderness/swelling Skin: No significant lesion Labs LABS PATIENT: MICHAEL LUTHER ACCOUNT: [id number] : 1945 LOCATION: [address] [place] [address] AGE: 73 SEX: F EXAM STATUS: ADM IN ORD. PHYSICIAN: JEANETTE VILLALOBOS MD REASON: TIA, right arm weak, CALL REPORT TO [facility] AT [phone] PROCEDURE: BRAIN W/O CONTRAST BRAIN W/O CONTRAST History: TIA. Right arm weakness Technique: Multiplanar, multi sequential MR imaging was performed of the brain without contrast. Comparison: MRI December 07, 2017. Head CT August 28, 2019 Findings: Small acute left centrum semiovale white matter infarct. No acute intracranial hemorrhage. No mass effect. No hydrocephalus. Moderate brain parenchymal volume loss. Extensive focal and confluent foci of T2/flair hyperintensities throughout the hemispheric white matter, most often due to chronic microvascular ischemia, similar compared to prior. Chronic right small cerebellar infarct. Small right hippocampal remnant cysts. Right parieto-occipital cortical infarct. Imaged orbits are unremarkable. Imaged paranasal sinuses and mastoid air cells are clear. Impression: 1. Small acute left centrum semiovale infarct. 2. Extensive sequelae of chronic microvascular ischemia. 3. Moderate brain parenchymal volume loss. 4. Small chronic right parietal occipital cortical infarct and tiny right cerebellar infarct. Laboratory Tests Test 08/28/19 12:11 08/28/19 12:15 08/28/19 12:37 Glucose (Fingerstick) 97 mg/dL (70-99) Urine Collection Type Unknown Urine Color Yellow Urine Clarity Clear Urine pH 6.5 Urine Specific [place] 1.010 Urine Protein Negative mg/dL (NEG-TRACE) Urine Glucose (UA) Negative mg/dL (NEG) Urine Ketones (Stick) Negative mg/dL (NEG) Urine Blood Negative (NEG) Urine Nitrite Negative (NEG) Urine Bilirubin Negative (NEG) Urine Urobilinogen Dipstick 0.2 mg/dL (0.2 mg/dL) Urine Leukocyte Esterase Negative (NEG) Urine RBC 0 /HPF (0-2) Urine WBC 0 /HPF (0-4) Urine Bacteria 0 /HPF (0-FEW) Urine Opiates Screen Pos (NEG) Urine Methadone Screen Neg (NEG) Urine Barbiturates Neg (NEG) Urine Phencyclidine Screen Neg (NEG) Urine Amphetamine/Methamphetamine Neg (NEG) Urine Benzodiazepines Screen Neg (NEG) Urine Cocaine Screen Neg (NEG) Urine Cannabinoids Screen Neg (NEG) Urine Ethyl Alcohol Neg (NEG) White Blood Count 7.3 x10^3/uL (4.0-11.0) Red Blood Count 4.00 x10^6/uL (3.50-5.40) Hemoglobin 12.9 g/dL (12.0-15.5) Hematocrit 38.2 % (36.0-47.0) Mean Corpuscular Volume 96 fL (79-100) Mean Corpuscular Hemoglobin 32 pg (25-35) Mean Corpuscular Hemoglobin Concent 34 g/dL (31-37) Red Cell Distribution Width 14.4 % (11.5-14.5) Platelet Count 328 x10^3/uL (140-400) Neutrophils (%) (Auto) 57 % (31-73) Lymphocytes (%) (Auto) 33 % (24-48) Monocytes (%) (Auto) 8 % (0-9) Eosinophils (%) (Auto) 1 % (0-3) Basophils (%) (Auto) 1 % (0-3) Neutrophils # (Auto) 4.1 x10^3/uL (1.8-7.7) Lymphocytes # (Auto) 2.4 x10^3/uL (1.0-4.8) Monocytes # (Auto) 0.6 x10^3/uL (0.0-1.1) Eosinophils # (Auto) 0.1 x10^3/uL (0.0-0.7) Basophils # (Auto) 0.1 x10^3/uL (0.0-0.2) Prothrombin Time 12.2 SEC (11.7-14.0) Prothromb Time International Ratio 0.9 (0.8-1.1) Activated Partial Thromboplast Time 27 SEC (24-38) Sodium Level 140 mmol/L (136-145) Potassium Level 3.8 mmol/L (3.5-5.1) Chloride Level 102 mmol/L (98-107) Carbon Dioxide Level 32 mmol/L (21-32) Anion Gap 6 (6-14) Blood Urea Nitrogen 15 mg/dL (7-20) Creatinine 1.1 mg/dL (0.6-1.0) Estimated GFR (Cockcroft-Gault) 48.6 BUN/Creatinine Ratio 14 (6-20) Glucose Level 100 mg/dL (70-99) Calcium Level 9.2 mg/dL (8.5-10.1) Magnesium Level 2.2 mg/dL (1.8-2.4) Total Bilirubin 0.4 mg/dL (0.2-1.0) Aspartate Amino Transf (AST/SGOT) 16 U/L (15-37) Alanine Aminotransferase (ALT/SGPT) 12 U/L (14-59) Alkaline Phosphatase 103 U/L (46-116) Creatine Kinase 47 U/L (26-192) Creatine Kinase MB (Mass) 0.5 ng/mL (0.0-3.6) Creatine Kinase MB Relative Index % (0-4) Troponin I Quantitative < 0.017 ng/mL (0.000-0.055) RC-Vhq-[id number]-Type Natriuretic Peptide 257 pg/mL (0-124) Total Protein 7.9 g/dL (6.4-8.2) Albumin 3.8 g/dL (3.4-5.0) Albumin/Globulin Ratio 0.9 (1.0-1.7) Thyroid Stimulating Hormone (TSH) 1.161 uIU/mL (0.358-3.74) Assessment and Plan Assessmemt and Plan Problems Medical Problems: (1) Headache Status: Acute (2) Headache Status: Acute (3) Right arm weakness Status: Acute (4) Right arm weakness Status: Acute * Room Air Dentition * Upper Denture * Lower Denture Behavioral Characteristics * Alert Current Diet Consistency * regular Current Liquid Consistency * regular Prior Functional Status * No known sp/sw deficit Other Related Factors * regular diet @ baseline per pt. WFL BSE in 2018 @ [facility]. Pain Score * 0 Pain Scale Type * Descriptive Intelligibility Words * Within Functional Limits Intelligibility Sentences * Within Functional Limits Voice Quality * Within Functional Limits Voice Pitch * Within Functional Limits Voice Intensity * Within Functional Limits Respiratory Function * Within Functional Limits Sensation * Within Normal Limits Lingual Strength/ROM * Within Normal Limits Labial Strength/ROM * Within Normal Limits Volitional Cough/Throat Clear * Within Normal Limits Palatal Elevation * Within Normal Limits Body Position * Within Functional Limits Head Position * Within Functional Limits Accepting Bolus * Within Functional Limits Thin Liquid Presented Via: * cup * straw Oral Phase Summary - Thin Liquid * Within Functional Limits Oral Containment - Thin Liquid * Within Functional Limits Bolus Prep/A-P Transport - Thin Liquid * Within Normal Limits Oral Residue - Thin Liquid * None Pharyngeal Phase Summary - Thin Liquid * Within Functional Limits Pharyngeal Swallow Initiation - Thin Liquid * Within Functional Limits Hyolaryngeal Excursion - Thin Liquid * Within Functional Limits Signs of Aspiration - Thin Liquid * None Oral Phase Summary - Puree * Within Functional Limits Oral Containment - Puree * Within Functional Limits Bolus Prep/A-P Transport - Puree * Within Normal Limits Oral Residue - Puree * None Pharyngeal Stage Summary - Puree * Within Functional Limits Pharyngeal Swallow Initiation - Puree * Within Functional Limits Hyolaryngeal Excursion - Puree * Within Functional Limits Signs of Aspiration - Puree * None Oral Phase Summary - Regular Solids * Within Functional Limits Oral Containment - Regular Solids * Within Functional Limits Bolus Prep/A-P Transport - Regular Solid * Within Normal Limits Mastication - Regular Solid * Within Functional Limits Oral Residue - Regular Solid * Minimal Pharyngeal Stage Summary - Regular * Within Functional Limits Pharyngeal Swallow Initiation - Regular Solid * Within Functional Limits Hyolaryngeal Excursion - Regular Solid * Within Functional Limits Signs of Aspiration - Regular Solid * None Impressions * Functional Swallow Identified Impairments Meriting Skilled Interventions * None Diet Texture Recommendations * Regular Liquid Texture Recommendations * Thin/Regular Medication Recommendations * With Thin Liquid * Pills - one at a time Recommended Swallow Strategies * Upright Position Recommended Supervision with Meals * None Needed Communicated Results With: * pt & w/ EDIN Pacheco Additional Details/Impressions * No s/s of any oropharyngeal dysphagia. No s/s aspiration across consistencies. Timing & range of hyolaryngeal mvmt is WFL to palpation. Anticipate continued safe & efficient PO intake w/ regular diet consistency. Pt denies any swallowing difficulty w/ onset of R arm weakness. RECOMMENDATIONS: Continue current diet consistency- regular w/ thin regular liquids. No add'l TODDLER NANNY f/u indicated at this time. Pls reconsult if needs change. Skilled Services Needed * Eval Only-No Tx Indicated Treatment Frequency (Days/Week) * n/a Comment Review of Relevant I have reviewed the following items karan (where applicable) has been applied. Labs Laboratory Tests Test 08/28/19 12:11 08/28/19 12:15 08/28/19 12:37 Glucose (Fingerstick) 97 mg/dL (70-99) Urine Collection Type Unknown Urine Color Yellow Urine Clarity Clear Urine pH 6.5 Urine Specific [place] 1.010 Urine Protein Negative mg/dL (NEG-TRACE) Urine Glucose (UA) Negative mg/dL (NEG) Urine Ketones (Stick) Negative mg/dL (NEG) Urine Blood Negative (NEG) Urine Nitrite Negative (NEG) Urine Bilirubin Negative (NEG) Urine Urobilinogen Dipstick 0.2 mg/dL (0.2 mg/dL) Urine Leukocyte Esterase Negative (NEG) Urine RBC 0 /HPF (0-2) Urine WBC 0 /HPF (0-4) Urine Bacteria 0 /HPF (0-FEW) Urine Opiates Screen Pos (NEG) Urine Methadone Screen Neg (NEG) Urine Barbiturates Neg (NEG) Urine Phencyclidine Screen Neg (NEG) Urine Amphetamine/Methamphetamine Neg (NEG) Urine Benzodiazepines Screen Neg (NEG) Urine Cocaine Screen Neg (NEG) Urine Cannabinoids Screen Neg (NEG) Urine Ethyl Alcohol Neg (NEG) White Blood Count 7.3 x10^3/uL (4.0-11.0) Red Blood Count 4.00 x10^6/uL (3.50-5.40) Hemoglobin 12.9 g/dL (12.0-15.5) Hematocrit 38.2 % (36.0-47.0) Mean Corpuscular Volume 96 fL (79-100) Mean Corpuscular Hemoglobin 32 pg (25-35) Mean Corpuscular Hemoglobin Concent 34 g/dL (31-37) Red Cell Distribution Width 14.4 % (11.5-14.5) Platelet Count 328 x10^3/uL (140-400) Neutrophils (%) (Auto) 57 % (31-73) Lymphocytes (%) (Auto) 33 % (24-48) Monocytes (%) (Auto) 8 % (0-9) Eosinophils (%) (Auto) 1 % (0-3) Basophils (%) (Auto) 1 % (0-3) Neutrophils # (Auto) 4.1 x10^3/uL (1.8-7.7) Lymphocytes # (Auto) 2.4 x10^3/uL (1.0-4.8) Monocytes # (Auto) 0.6 x10^3/uL (0.0-1.1) Eosinophils # (Auto) 0.1 x10^3/uL (0.0-0.7) Basophils # (Auto) 0.1 x10^3/uL (0.0-0.2) Prothrombin Time 12.2 SEC (11.7-14.0) Prothromb Time International Ratio 0.9 (0.8-1.1) Activated Partial Thromboplast Time 27 SEC (24-38) Sodium Level 140 mmol/L (136-145) Potassium Level 3.8 mmol/L (3.5-5.1) Chloride Level 102 mmol/L (98-107) Carbon Dioxide Level 32 mmol/L (21-32) Anion Gap 6 (6-14) Blood Urea Nitrogen 15 mg/dL (7-20) Creatinine 1.1 mg/dL (0.6-1.0) Estimated GFR (Cockcroft-Gault) 48.6 BUN/Creatinine Ratio 14 (6-20) Glucose Level 100 mg/dL (70-99) Calcium Level 9.2 mg/dL (8.5-10.1) Magnesium Level 2.2 mg/dL (1.8-2.4) Total Bilirubin 0.4 mg/dL (0.2-1.0) Aspartate Amino Transf (AST/SGOT) 16 U/L (15-37) Alanine Aminotransferase (ALT/SGPT) 12 U/L (14-59) Alkaline Phosphatase 103 U/L (46-116) Creatine Kinase 47 U/L (26-192) Creatine Kinase MB (Mass) 0.5 ng/mL (0.0-3.6) Creatine Kinase MB Relative Index % (0-4) Troponin I Quantitative < 0.017 ng/mL (0.000-0.055) JX-Ool-A-Type Natriuretic Peptide 257 pg/mL (0-124) Total Protein 7.9 g/dL (6.4-8.2) Albumin 3.8 g/dL (3.4-5.0) Albumin/Globulin Ratio 0.9 (1.0-1.7) Thyroid Stimulating Hormone (TSH) 1.161 uIU/mL (0.358-3.74) Laboratory Tests Test 08/28/19 12:11 08/28/19 12:15 08/28/19 12:37 Glucose (Fingerstick) 97 mg/dL (70-99) Urine Collection Type Unknown Urine Color Yellow Urine Clarity Clear Urine pH 6.5 Urine Specific [place] 1.010 Urine Protein Negative mg/dL (NEG-TRACE) Urine Glucose (UA) Negative mg/dL (NEG) Urine Ketones (Stick) Negative mg/dL (NEG) Urine Blood Negative (NEG) Urine Nitrite Negative (NEG) Urine Bilirubin Negative (NEG) Urine Urobilinogen Dipstick 0.2 mg/dL (0.2 mg/dL) Urine Leukocyte Esterase Negative (NEG) Urine RBC 0 /HPF (0-2) Urine WBC 0 /HPF (0-4) Urine Bacteria 0 /HPF (0-FEW) Urine Opiates Screen Pos (NEG) Urine Methadone Screen Neg (NEG) Urine Barbiturates Neg (NEG) Urine Phencyclidine Screen Neg (NEG) Urine Amphetamine/Methamphetamine Neg (NEG) Urine Benzodiazepines Screen Neg (NEG) Urine Cocaine Screen Neg (NEG) Urine Cannabinoids Screen Neg (NEG) Urine Ethyl Alcohol Neg (NEG) White Blood Count 7.3 x10^3/uL (4.0-11.0) Red Blood Count 4.00 x10^6/uL (3.50-5.40) Hemoglobin 12.9 g/dL (12.0-15.5) Hematocrit 38.2 % (36.0-47.0) Mean Corpuscular Volume 96 fL (79-100) Mean Corpuscular Hemoglobin 32 pg (25-35) Mean Corpuscular Hemoglobin Concent 34 g/dL (31-37) Red Cell Distribution Width 14.4 % (11.5-14.5) Platelet Count 328 x10^3/uL (140-400) Neutrophils (%) (Auto) 57 % (31-73) Lymphocytes (%) (Auto) 33 % (24-48) Monocytes (%) (Auto) 8 % (0-9) Eosinophils (%) (Auto) 1 % (0-3) Basophils (%) (Auto) 1 % (0-3) Neutrophils # (Auto) 4.1 x10^3/uL (1.8-7.7) Lymphocytes # (Auto) 2.4 x10^3/uL (1.0-4.8) Monocytes # (Auto) 0.6 x10^3/uL (0.0-1.1) Eosinophils # (Auto) 0.1 x10^3/uL (0.0-0.7) Basophils # (Auto) 0.1 x10^3/uL (0.0-0.2) Prothrombin Time 12.2 SEC (11.7-14.0) Prothromb Time International Ratio 0.9 (0.8-1.1) Activated Partial Thromboplast Time 27 SEC (24-38) Sodium Level 140 mmol/L (136-145) Potassium Level 3.8 mmol/L (3.5-5.1) Chloride Level 102 mmol/L (98-107) Carbon Dioxide Level 32 mmol/L (21-32) Anion Gap 6 (6-14) Blood Urea Nitrogen 15 mg/dL (7-20) Creatinine 1.1 mg/dL (0.6-1.0) Estimated GFR (Cockcroft-Gault) 48.6 BUN/Creatinine Ratio 14 (6-20) Glucose Level 100 mg/dL (70-99) Calcium Level 9.2 mg/dL (8.5-10.1) Magnesium Level 2.2 mg/dL (1.8-2.4) Total Bilirubin 0.4 mg/dL (0.2-1.0) Aspartate Amino Transf (AST/SGOT) 16 U/L (15-37) Alanine Aminotransferase (ALT/SGPT) 12 U/L (14-59) Alkaline Phosphatase 103 U/L (46-116) Creatine Kinase 47 U/L (26-192) Creatine Kinase MB (Mass) 0.5 ng/mL (0.0-3.6) Creatine Kinase MB Relative Index % (0-4) Troponin I Quantitative < 0.017 ng/mL (0.000-0.055) NQ-Hag-X-Type Natriuretic Peptide 257 pg/mL (0-124) Total Protein 7.9 g/dL (6.4-8.2) Albumin 3.8 g/dL (3.4-5.0) Albumin/Globulin Ratio 0.9 (1.0-1.7) Thyroid Stimulating Hormone (TSH) 1.161 uIU/mL (0.358-3.74) Medications Current Medications Ondansetron HCl (Zofran) 4 mg PRN Q8HRS PRN IV NAUSEA/VOMITING; Start 08/28/19 at 15:15; Stop 08/29/19 at 15:14 Acetaminophen (Tylenol) 650 mg PRN Q4HRS PRN PO FEVER; Start 08/28/19 at 15:15; Stop 08/29/19 at 15:14 Aspirin (Ecotrin) 81 mg DAILY PO ; Start 08/29/19 at 09:00 Gabapentin (Neurontin) 300 mg BID@0900,1400 PO ; Start 08/29/19 at 09:00 Acetaminophen/ Hydrocodone Bitart (Lortab 10/325) 1 tab PRN Q8HRS PRN PO MODERATE PAIN, SEVERE PAIN Last administered on 08/29/19at 05:58; Start 08/28/19 at 19:15 Vitamin D (Vitamin D3) 4,000 unit DAILY PO ; Start 08/29/19 at 09:00 Gabapentin (Neurontin) 600 mg QHS PO Last administered on 08/28/19at 20:28; Start 08/28/19 at 21:00 Losartan Potassium (Cozaar) 100 mg DAILY PO ; Start 08/29/19 at 09:00 Pantoprazole Sodium (Protonix) 40 mg DAILYAC PO Last administered on 08/29/19at 07:41; Start 08/29/19 at 07:30 Pioglitazone HCl (Actos) 30 mg DAILY PO ; Start 08/29/19 at 09:00 Hydrochlorothiazide (Hydrodiuril) 25 mg DAILY PO ; Start 08/29/19 at 09:00 Active Scripts Active Reported Hydrocodone-Apap 10-325 (Hydrocodone Bit/Acetaminophen) 1 Tab Tablet 1 Tab PO PRN Q8HRS PRN Vitamin D3 (Cholecalciferol (Vitamin D3)) 4,000 Unit Capsule 1 Cap PO DAILY 30 Days Actos (Pioglitazone Hcl) 30 Mg Tablet 1 Tab PO DAILY 30 Days Gabapentin 600 Mg Tablet 600 Mg PO HS Gabapentin (Gabapentin) 300 Mg Capsule 300 Mg PO BID Losartan-Hctz 100-25 Mg Tab (Losartan/Hydrochlorothiazide) 1 Each Tablet 1 Tab PO DAILY Aspir 81 (Aspirin) 81 Mg Tablet. 81 Mg PO Omeprazole 20 Mg Capsule.dr 20 Mg PO DAILY Vitals/I & O Vital Sign - Last 24 Hours 08/28/19 08/28/19 08/28/19 08/28/19 12:00 12:38 12:53 13:11 Temp 98.2 98.2 Pulse 73 63 73 65 Resp 20 B/P (MAP) 168/77 (107) Pulse Ox 97 96 94 92 O2 Delivery Room Air 08/28/19 08/28/19 08/28/19 08/28/19 13:23 13:38 13:53 14:08 Pulse 61 61 63 66 Pulse Ox 97 93 99 94 08/28/19 08/28/19 08/28/19 08/28/19 14:23 15:15 16:51 19:00 Temp 97.9 97.5 97.9 97.5 Pulse 58 66 94 Resp 18 19 B/P (MAP) 134/61 (85) 137/69 (91) Pulse Ox 94 96 94 O2 Delivery Room Air Room Air Room Air 08/28/19 08/28/19 08/28/19 08/28/19 19:18 20:00 20:18 23:00 Temp 97.8 97.8 Pulse 71 Resp 18 18 B/P (MAP) 97/36 (56) Pulse Ox 94 94 O2 Delivery Room Air Room Air Room Air Room Air 08/29/19 08/29/19 08/29/19 08/29/19 03:00 05:58 06:58 07:00 Temp 97.9 97.5 97.9 97.5 Pulse 66 74 Resp 19 18 18 16 B/P (MAP) 116/49 (71) 148/65 (92) Pulse Ox 95 95 95 92 O2 Delivery Room Air Room Air Room Air Room Air Intake and Output 08/28/19 08/28/19 08/29/19 15:00 23:00 07:00 Intake Total 360 ml Output Total 0 ml Balance 360 ml 0 ml GILL KRISHNAMURTHY MD Aug 29, 2019 08:25
[2019-08-29] MEDS: PIOGLITAZONE 15 MG TABLET. PO SCH (08:37)
[2019-08-29] MEDS: LOSARTAN POTASSIUM 50 MG TABLET. PO SCH (08:37)
[2019-08-29] MEDS: hydroCHLOROthiazide 25 MG TABLET PO SCH (08:38)
[2019-08-29] MEDS: GABAPENTIN 300 MG CAPSULE. PO SCH ×3 (08:38→21:00)
[2019-08-29] MEDS: CHOLECALCIFEROL (VITAMIN D3) 1,000 UNIT TABLET PO SCH (08:38)
[2019-08-29] MEDS ORDERED: LABETALOL 20 MG/4 ML DISP.SYRIN. IVP PRN (08:45)
[2019-08-29] MEDS ORDERED: ACETAMINOPHEN 650 MG SUPP.RECT. PR PRN (08:45)
[2019-08-29] MEDS ORDERED: IOHEXOL 300 MG/ML 100ML VIAL. IV ONE (09:00)
[2019-08-29] MEDS ORDERED: CONTRAST GIVEN. MC PRN (09:00)
[2019-08-29] MEDS ORDERED: ASPIRIN ENTERIC COATED 81 MG TABLET.DR. PO SCH (09:00)
--- NOTE | 2019-08-29 09:17 | PDOC2 ---
NEUROLOGY CONSULT Date of Admission Date of Admission DATE: 08/29/19 TIME: 09:10 Reason for Consult Reason for Consult: Right arm numbness and weakness Referring Physician Referring Physician: Dr. Us Source Source: Chart review, Patient History of Present Illness History of Present Illness The patient is a 73-year-old right-handed female with acute onset of right arm weakness and clumsiness and numbness yesterday morning, after she woke up. Symptoms resolved by the time she was in the emergency room but she was still having some trouble writing. The patient was here in January 1018 with some left breast pain and I was asked to see her regarding falls. I felt these were mechanical falls, and indeed the patient has had no additional fall since I saw her. MRI of the brain, 12/07/17, showed no acute infarct, there were white matter changes, encephalomalacia in the right parietal occipital region. Echocardiogram and carotid Doppler studies were negative. The patient is on 81 mg of aspirin a day, she is not on a statin because she has had myalgias with these. She feels fine now. She has no headache. There is no history of migraine. Past Medical History Cardiovascular: HTN, Hyperlipidemia Pulmonary: Pneumonia CENTRAL NERVOUS SYSTEM: CVA GI: Diverticulosis (itis), GERD, Peptic Ulcer disease, Other (hiatal hernia, diarrhea) Heme/Onc: Cancer (breast cancer) Musculoskeletal: low back pain (and neck pain), Osteoarthritis Endocrine: Osteoporosis Past Surgical History Past Surgical History: Cataract Removal, Hysterectomy, Other (breast lumpectomy and lymph node dissection, left knee, left heel spur) Family History Family History: No pertinent hx Social History Social History , no tobacco or alcohol Current Medications Current Medications Current Medications Ondansetron HCl (Zofran) 4 mg PRN Q8HRS PRN IV NAUSEA/VOMITING; Start 08/28/19 at 15:15; Stop 08/29/19 at 15:14 Acetaminophen (Tylenol) 650 mg PRN Q4HRS PRN PO FEVER; Start 08/28/19 at 15:15; Stop 08/29/19 at 15:14 Aspirin (Ecotrin) 81 mg DAILY PO Last administered on 08/29/19at 08:38; Start 08/29/19 at 09:00; Stop 08/29/19 at 08:43; Status DC Gabapentin (Neurontin) 300 mg BID@0900,1400 PO Last administered on 08/29/19 08:38; Start 08/29/19 at 09:00 Acetaminophen/ Hydrocodone Bitart (Lortab 10/325) 1 tab PRN Q8HRS PRN PO MODERATE PAIN, SEVERE PAIN Last administered on 08/29/19at 05:58; Start 08/28/19 at 19:15 Vitamin D (Vitamin D3) 4,000 unit DAILY PO Last administered on 08/29/19at 08:38; Start 08/29/19 at 09:00 Gabapentin (Neurontin) 600 mg QHS PO Last administered on 08/28/19at 20:28; Start 08/28/19 at 21:00 Losartan Potassium (Cozaar) 100 mg DAILY PO Last administered on 08/29/19 08:37; Start 08/29/19 at 09:00 Pantoprazole Sodium (Protonix) 40 mg DAILYAC PO Last administered on 08/29/19at 07:41; Start 08/29/19 at 07:30 Pioglitazone HCl (Actos) 30 mg DAILY PO Last administered on 08/29/19at 08:37; Start 08/29/19 at 09:00 Hydrochlorothiazide (Hydrodiuril) 25 mg DAILY PO Last administered on 08/29/19 08:38; Start 08/29/19 at 09:00 Labetalol HCl (Normodyne Iv Push) 10 mg PRN Q10MIN PRN IVP ELEVATED BP, SEE COMMENTS; Start 08/29/19 at 08:45 Acetaminophen (Tylenol) 650 mg PRN Q6HRS PRN PO TEMP > 100.4F; Start 08/29/19 at 08:45 Acetaminophen (Tylenol Supp) 650 mg PRN Q4HRS PRN [place] TEMP > 100.4F; Start 08/29/19 at 08:45 Aspirin (Ecotrin) 325 mg DAILYWBKFT PO ; Start 08/30/19 at 08:00 Iohexol (Omnipaque 300 Mg/ml) 60 ml 1X ONCE IV ; Start 08/29/19 at 09:00; Stop 08/29/19 at 09:01; Status DC Info (CONTRAST GIVEN -- Rx MONITORING) 1 each PRN DAILY PRN MC SEE COMMENTS; Start 08/29/19 at 09:00; Stop 12/14/19 at 08:59 Active Scripts Active Reported Hydrocodone-Apap 10-325 (Hydrocodone Bit/Acetaminophen) 1 Tab Tablet 1 Tab PO PRN Q8HRS PRN Vitamin D3 (Cholecalciferol (Vitamin D3)) 4,000 Unit Capsule 1 Cap PO DAILY 30 Days Actos (Pioglitazone Hcl) 30 Mg Tablet 1 Tab PO DAILY 30 Days Gabapentin 600 Mg Tablet 600 Mg PO HS Gabapentin (Gabapentin) 300 Mg Capsule 300 Mg PO BID Losartan-Hctz 100-25 Mg Tab (Losartan/Hydrochlorothiazide) 1 Each Tablet 1 Tab PO DAILY Aspir 81 (Aspirin) 81 Mg Tablet. 81 Mg PO Omeprazole 20 Mg Capsule. 20 Mg PO DAILY Allergies Allergies: Coded Allergies: No Known Drug Allergies (Unverified , 12/07/17) ROS Review of System Negative for fever, chills, weight loss, shortness of breath, chest pain, indigestion, hematochezia, melena, and dysuria. Full 14-point review of systems is negative. Physical Exam Physical Examination General: Well-developed, well-nourished white female in no acute distress HEENT: Normocephalic andatraumatic. Temporal arteriespulsatile and nontender. Neck: Supple without bruit, no meningismus Musculoskeletal: Stability:see neurologic. Gait exam:see neurologic. Tone:see neurologic.Strength:see neurologic. Neurological: Mental Status:intact, orientation, memory, attention span/concentration, language, fund of knowledge normal. Cranial Nerves:Pupils equal and reactive to light, extraocular movements areintact, visual jonas are full to confrontation. Facial sensation is normal. There is no facial asymmetry. Vestibulo-ocular reflex is intact. Palate elevates and tongue protrudes in midline. All other cranial related problems are negative except as mentioned before.Reflexes:2+ and symmetric with flexor plantar responses. Motor:5/5 strength with normal tone and bulk. Coordination:Finger-nose finger and [id number] testing are normal. Rapid alternating movements and fine finger movements are intact. Gait:Normal, including tandem. Sensory:Normal pinprick, vibration, light touch, proprioception. Vitals VITALS Vital Signs Date Time Temp Pulse Resp B/P (MAP) Pulse Ox O2 Delivery O2 Flow Rate FiO2 08/29/19 08:37 74 148/65 08/29/19 07:00 97.5 16 92 Room Air 97.5 Labs Labs Laboratory Tests Test 08/28/19 12:11 08/28/19 12:15 08/28/19 12:37 Glucose (Fingerstick) 97 mg/dL (70-99) Urine Collection Type Unknown Urine Color Yellow Urine Clarity Clear Urine pH 6.5 Urine Specific [place] 1.010 Urine Protein Negative mg/dL (NEG-TRACE) Urine Glucose (UA) Negative mg/dL (NEG) Urine Ketones (Stick) Negative mg/dL (NEG) Urine Blood Negative (NEG) Urine Nitrite Negative (NEG) Urine Bilirubin Negative (NEG) Urine Urobilinogen Dipstick 0.2 mg/dL (0.2 mg/dL) Urine Leukocyte Esterase Negative (NEG) Urine RBC 0 /HPF (0-2) Urine WBC 0 /HPF (0-4) Urine Bacteria 0 /HPF (0-FEW) Urine Opiates Screen Pos (NEG) Urine Methadone Screen Neg (NEG) Urine Barbiturates Neg (NEG) Urine Phencyclidine Screen Neg (NEG) Urine Amphetamine/Methamphetamine Neg (NEG) Urine Benzodiazepines Screen Neg (NEG) Urine Cocaine Screen Neg (NEG) Urine Cannabinoids Screen Neg (NEG) Urine Ethyl Alcohol Neg (NEG) White Blood Count 7.3 x10^3/uL (4.0-11.0) Red Blood Count 4.00 x10^6/uL (3.50-5.40) Hemoglobin 12.9 g/dL (12.0-15.5) Hematocrit 38.2 % (36.0-47.0) Mean Corpuscular Volume 96 fL (79-100) Mean Corpuscular Hemoglobin 32 pg (25-35) Mean Corpuscular Hemoglobin Concent 34 g/dL (31-37) Red Cell Distribution Width 14.4 % (11.5-14.5) Platelet Count 328 x10^3/uL (140-400) Neutrophils (%) (Auto) 57 % (31-73) Lymphocytes (%) (Auto) 33 % (24-48) Monocytes (%) (Auto) 8 % (0-9) Eosinophils (%) (Auto) 1 % (0-3) Basophils (%) (Auto) 1 % (0-3) Neutrophils # (Auto) 4.1 x10^3/uL (1.8-7.7) Lymphocytes # (Auto) 2.4 x10^3/uL (1.0-4.8) Monocytes # (Auto) 0.6 x10^3/uL (0.0-1.1) Eosinophils # (Auto) 0.1 x10^3/uL (0.0-0.7) Basophils # (Auto) 0.1 x10^3/uL (0.0-0.2) Prothrombin Time 12.2 SEC (11.7-14.0) Prothromb Time International Ratio 0.9 (0.8-1.1) Activated Partial Thromboplast Time 27 SEC (24-38) Sodium Level 140 mmol/L (136-145) Potassium Level 3.8 mmol/L (3.5-5.1) Chloride Level 102 mmol/L (98-107) Carbon Dioxide Level 32 mmol/L (21-32) Anion Gap 6 (6-14) Blood Urea Nitrogen 15 mg/dL (7-20) Creatinine 1.1 mg/dL (0.6-1.0) Estimated GFR (Cockcroft-Gault) 48.6 BUN/Creatinine Ratio 14 (6-20) Glucose Level 100 mg/dL (70-99) Calcium Level 9.2 mg/dL (8.5-10.1) Magnesium Level 2.2 mg/dL (1.8-2.4) Total Bilirubin 0.4 mg/dL (0.2-1.0) Aspartate Amino Transf (AST/SGOT) 16 U/L (15-37) Alanine Aminotransferase (ALT/SGPT) 12 U/L (14-59) Alkaline Phosphatase 103 U/L (46-116) Creatine Kinase 47 U/L (26-192) Creatine Kinase MB (Mass) 0.5 ng/mL (0.0-3.6) Creatine Kinase MB Relative Index % (0-4) Troponin I Quantitative < 0.017 ng/mL (0.000-0.055) MV-Bit-K-Type Natriuretic Peptide 257 pg/mL (0-124) Total Protein 7.9 g/dL (6.4-8.2) Albumin 3.8 g/dL (3.4-5.0) Albumin/Globulin Ratio 0.9 (1.0-1.7) Thyroid Stimulating Hormone (TSH) 1.161 uIU/mL (0.358-3.74) Laboratory Tests Test 08/28/19 12:11 08/28/19 12:15 08/28/19 12:37 Glucose (Fingerstick) 97 mg/dL (70-99) Urine Collection Type Unknown Urine Color Yellow Urine Clarity Clear Urine pH 6.5 Urine Specific [place] 1.010 Urine Protein Negative mg/dL (NEG-TRACE) Urine Glucose (UA) Negative mg/dL (NEG) Urine Ketones (Stick) Negative mg/dL (NEG) Urine Blood Negative (NEG) Urine Nitrite Negative (NEG) Urine Bilirubin Negative (NEG) Urine Urobilinogen Dipstick 0.2 mg/dL (0.2 mg/dL) Urine Leukocyte Esterase Negative (NEG) Urine RBC 0 /HPF (0-2) Urine WBC 0 /HPF (0-4) Urine Bacteria 0 /HPF (0-FEW) Urine Opiates Screen Pos (NEG) Urine Methadone Screen Neg (NEG) Urine Barbiturates Neg (NEG) Urine Phencyclidine Screen Neg (NEG) Urine Amphetamine/Methamphetamine Neg (NEG) Urine Benzodiazepines Screen Neg (NEG) Urine Cocaine Screen Neg (NEG) Urine Cannabinoids Screen Neg (NEG) Urine Ethyl Alcohol Neg (NEG) White Blood Count 7.3 x10^3/uL (4.0-11.0) Red Blood Count 4.00 x10^6/uL (3.50-5.40) Hemoglobin 12.9 g/dL (12.0-15.5) Hematocrit 38.2 % (36.0-47.0) Mean Corpuscular Volume 96 fL (79-100) Mean Corpuscular Hemoglobin 32 pg (25-35) Mean Corpuscular Hemoglobin Concent 34 g/dL (31-37) Red Cell Distribution Width 14.4 % (11.5-14.5) Platelet Count 328 x10^3/uL (140-400) Neutrophils (%) (Auto) 57 % (31-73) Lymphocytes (%) (Auto) 33 % (24-48) Monocytes (%) (Auto) 8 % (0-9) Eosinophils (%) (Auto) 1 % (0-3) Basophils (%) (Auto) 1 % (0-3) Neutrophils # (Auto) 4.1 x10^3/uL (1.8-7.7) Lymphocytes # (Auto) 2.4 x10^3/uL (1.0-4.8) Monocytes # (Auto) 0.6 x10^3/uL (0.0-1.1) Eosinophils # (Auto) 0.1 x10^3/uL (0.0-0.7) Basophils # (Auto) 0.1 x10^3/uL (0.0-0.2) Prothrombin Time 12.2 SEC (11.7-14.0) Prothromb Time International Ratio 0.9 (0.8-1.1) Activated Partial Thromboplast Time 27 SEC (24-38) Sodium Level 140 mmol/L (136-145) Potassium Level 3.8 mmol/L (3.5-5.1) Chloride Level 102 mmol/L (98-107) Carbon Dioxide Level 32 mmol/L (21-32) Anion Gap 6 (6-14) Blood Urea Nitrogen 15 mg/dL (7-20) Creatinine 1.1 mg/dL (0.6-1.0) Estimated GFR (Cockcroft-Gault) 48.6 BUN/Creatinine Ratio 14 (6-20) Glucose Level 100 mg/dL (70-99) Calcium Level 9.2 mg/dL (8.5-10.1) Magnesium Level 2.2 mg/dL (1.8-2.4) Total Bilirubin 0.4 mg/dL (0.2-1.0) Aspartate Amino Transf (AST/SGOT) 16 U/L (15-37) Alanine Aminotransferase (ALT/SGPT) 12 U/L (14-59) Alkaline Phosphatase 103 U/L (46-116) Creatine Kinase 47 U/L (26-192) Creatine Kinase MB (Mass) 0.5 ng/mL (0.0-3.6) Creatine Kinase MB Relative Index % (0-4) Troponin I Quantitative < 0.017 ng/mL (0.000-0.055) AV-Mbv-B-Type Natriuretic Peptide 257 pg/mL (0-124) Total Protein 7.9 g/dL (6.4-8.2) Albumin 3.8 g/dL (3.4-5.0) Albumin/Globulin Ratio 0.9 (1.0-1.7) Thyroid Stimulating Hormone (TSH) 1.161 uIU/mL (0.358-3.74) Images Images CT CODE STROKE HEAD WO History: Right upper extremity weakness Comparison/Correlation: 12/07/2017 CT head without contrast Findings: Axial images were obtained without contrast. Ventricles are normal size. Atrophy is present. Chronic ischemic changes and white matters present. There is low-attenuation extending to the right parietal region superiorly which appears to represent an infarct. No change at this site compared to the prior exam. No midline shift. No bony destructive finding. Mucosal thickening of the ethmoid air cells noted. Globes and optic nerves are unremarkable. Impression: No intracranial hemorrhage. Advanced chronic ischemic changes in the white matter. Old right parietal infarct. No new infarct. On 08/28/2019 at 12:23 PM, results were reported to the referring emergency room provider. Assessment/Plan Assessment/Plan Impression: Transient ischemic attack, low-dose aspirin failure Prior silent infarcts Chronic neck and back pain History of falls, none recently. Recommendations: MRI of the brain Echocardiogram CT angiogram Increase aspirin to 325 mg daily Rehabilitation screening Follow-up with her primary physician for institution of a non-statin lipid- lowering agent. Could be discharged as soon as later today if tests are negative. Thank you for letting me help with the patient's care. JEANETTE VILLALOBOS MD Aug 29, 2019 09:16
[2019-08-29 11:00] VITALS: BP 96/42
--- NOTE | 2019-08-29 12:14 | RAD ---
BRAIN W/O CONTRAST History: TIA. Right arm weakness Technique: Multiplanar, multi sequential MR imaging was performed of the brain without contrast. Comparison: MRI December 07, 2017. Head CT August 28, 2019 Findings: Small acute left centrum semiovale white matter infarct. No acute intracranial hemorrhage. No mass effect. No hydrocephalus. Moderate brain parenchymal volume loss. Extensive focal and confluent foci of T2/flair hyperintensities throughout the hemispheric white matter, most often due to chronic microvascular ischemia, similar compared to prior. Chronic right small cerebellar infarct. Small right hippocampal remnant cysts. Right parieto-occipital cortical infarct. Imaged orbits are unremarkable. Imaged paranasal sinuses and mastoid air cells are clear. Impression: 1. Small acute left centrum semiovale infarct. 2. Extensive sequelae of chronic microvascular ischemia. 3. Moderate brain parenchymal volume loss. 4. Small chronic right parietal occipital cortical infarct and tiny right cerebellar infarct. FOR INTERNAL CODING PURPOSES Critical result: Findings discussed with patient's nurse at 08/29/2019 12:11 PM. RESULT CODE: (C) Electronically signed by: Sami Montenegro DO (08/29/2019 12:11 PM) [email or web address]
[2019-08-29 14:00] VITALS: BP 141/79
--- NOTE | 2019-08-29 14:48 | RAD ---
Examination: CT ANGIOGRAPHY HEAD AND NECK History: TIA TECHNIQUE: Computed tomographic angiography of the head and neck was performed before and after the intravenous administration of contrast. Three-dimensional reconstructions were also performed. Volume rendered 3-D images were provided. Maximum intensity projection images were provided. Sagittal and coronal reformatted images are provided. Delayed scanning following IV contrast is noted with venous contamination. COMPARISON: CT head without contrast 08/28/2019, MRI brain without contrast 08/29/2019. FINDINGS: Angiographic findings: Bovine arch is present. Approximately 50-70 percent percent stenosis of the left subclavian artery origin noted with significant calcific involvement. Proximal right subclavian arterial calcification is notable with approximately 50 percent stenosis. Both common carotid arteries are patent without stenosis. Both internal carotid arteries are patent without stenosis. The external carotid systems are patent. Calcific room involvement of the right common carotid arterial bifurcation is noted. Calcific involvement of the left internal carotid artery proximally noted. No significant stenoses at these sites. The vertebral arteries are patent. The left vertebral artery is dominant. The basilar artery is patent. Both posterior cerebral arteries are patent although diffuse narrowing distally is present bilaterally of less than 50 percent. The posterior communicating arteries are visualized. The intracranial internal carotid arteries demonstrate no stenosis. The middle cerebral arteries are patent. The anterior cerebral arteries are patent. The anterior communicating artery is visualized. Nonangiographic findings: There is no intracranial hemorrhage. Green-white differentiation is preserved. The ventricles are normal in size and position. Old right parietal infarct noted. The paranasal sinuses appear clear. The orbits are unremarkable. The temporal bones are unremarkable. Bone windows reveal no suspicious lesions. Centrilobular emphysema is seen. The parotid glands and submandibular glands are unremarkable. The thyroid gland demonstrates no suspicious lesions. There are no laryngeal or pharyngeal masses. There are no pathologically enlarged lymph nodes. IMPRESSION: Distal bilateral posterior cerebral arterial atheromatous involvement and narrowing of less than 50 percent. 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 Approximately 50 percent stenosis of the right subclavian artery origin. Small old right parietal infarct. No dissection or aneurysm. PQRS Compliance Statement - Stenosis calculations for CT, MR and conventional angiography are based upon measurement of the distal ICA diameter in accordance with the NASCET methodology. Stenosis calculations for carotid ultrasound studies are derived from validated velocity criteria which are known to correlate with the NASCET methodology. *One or more of the following individualized dose reduction techniques were utilized for this examination: 1. Automated exposure control. 2. Adjustment of the mA and/or kV according to patient size. 3. Use of iterative reconstruction technique. Electronically signed by: Tomas Simmons MD (08/29/2019 2:45 PM) [facility]
[2019-08-29] MEDS: ACETAMINOPHEN 325 MG TABLET. PO PRN (15:40)
[2019-08-29 19:40] VITALS: BP 98/42
[2019-08-29 23:40] VITALS: BP 91/49
[2019-08-30 03:40] VITALS: BP 103/45
[2019-08-30 06:11] LABS: BASO % 1 % (0-3); EOS # 0.2 x10^3/uL (0.0-0.7); EOS % 4 % (0-3); HEMATOCRIT 38.2 % (36.0-47.0); HEMOGLOBIN 12.8 g/dL (12.0-15.5); LYMPH # 2.9 x10^3/uL (1.0-4.8); LYMPH % 48 % (24-48); MEAN CORPUSCULAR HEMOGLOBIN 32 pg (25-35); MEAN CORPUSCULAR HGB CONC 34 g/dL (31-37); MEAN CORPUSCULAR VOLUME 96 fL (79-100); MONO # 0.6 x10^3/uL (0.0-1.1); MONO % 10 % (0-9); NEUT # 2.3 x10^3/uL (1.8-7.7); NEUT % 38 % (31-73); PLATELET COUNT 320 x10^3/uL (140-400); RED BLOOD COUNT 3.99 x10^6/uL (3.50-5.40); RED CELL DISTRIBUTION WIDTH 14.7 % (11.5-14.5); WHITE BLOOD COUNT 6.1 x10^3/uL (4.0-11.0)
[2019-08-30 06:16] LABS: CALCIUM 9.3 mg/dL (8.5-10.1); GFR 54.2; POTASSIUM 3.5 mmol/L (3.5-5.1)
[2019-08-30 06:53] LABS: CHOLESTEROL/HDL RATIO 3.7
[2019-08-30 07:00] VITALS: BP 112/57
[2019-08-30] MEDS: PANTOPRAZOLE 40 MG TABLET.DR. PO SCH (08:37)
[2019-08-30] MEDS: PIOGLITAZONE 15 MG TABLET. PO SCH (08:37)
[2019-08-30] MEDS: ASPIRIN ENTERIC COATED 325 MG TABLET.DR. PO SCH (08:37)
[2019-08-30] MEDS: GABAPENTIN 300 MG CAPSULE. PO SCH ×3 (08:38→21:33)
[2019-08-30] MEDS: CHOLECALCIFEROL (VITAMIN D3) 1,000 UNIT TABLET PO SCH (08:38)
[2019-08-30] MEDS: HYDROcodone/APAP 10/325 1 TAB TABLET PO PRN ×2 (08:39→21:33)
[2019-08-30] MEDS: LOSARTAN POTASSIUM 50 MG TABLET. PO SCH (08:42)
[2019-08-30] MEDS: hydroCHLOROthiazide 25 MG TABLET PO SCH (08:42)
--- NOTE | 2019-08-30 10:28 | PDOC ---
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 Approximately 50 percent stenosis of the right subclavian artery origin. Low-dose aspirin failure Prior silent infarcts Chronic neck and back pain History of falls, none recently. Note hyperlipidemia Plan Await Echocardiogram Increased aspirin to 325 mg daily Rehabilitation screening Follow-up with her primary physician for institution of a non-statin lipid- lowering agent, e.g. [id number], gets myalgias with statins. Okay to discharge later today. Does not need further rehab according to physical and occupational therapy Advised patient to activate 911 of stroke symptoms occur Subjective no complaints Objective Vital Signs Date Time Temp Pulse Resp B/P (MAP) Pulse Ox O2 Delivery O2 Flow Rate FiO2 08/30/19 09:39 Room Air 08/30/19 08:42 64 103/45 08/30/19 07:00 98.1 16 92 98.1 Intake and Output 08/30/19 07:00 Intake Total 700 ml Balance 700 ml Intake Oral 700 ml # Voids 4 PHYSICAL EXAM Alert. Oriented to time, place and person. PERRL. EOMI. CN: no focal findings. Muscle tone: normal. Muscle strength: 5/5 DTR: 2+ Plantar reflex: flexor Gait: normal. Sensory exam: no abnormal findings. No cerebellar signs elicited. Review of Relevant I have reviewed the following items karan (where applicable) has been applied. Labs Laboratory Tests Test 08/28/19 12:11 08/28/19 12:15 08/28/19 12:37 08/30/19 04:35 Glucose (Fingerstick) 97 mg/dL (70-99) Urine Collection Type Unknown Urine Color Yellow Urine Clarity Clear Urine pH 6.5 Urine Specific [place] 1.010 Urine Protein Negative mg/dL (NEG-TRACE) Urine Glucose (UA) Negative mg/dL (NEG) Urine Ketones (Stick) Negative mg/dL (NEG) Urine Blood Negative (NEG) Urine Nitrite Negative (NEG) Urine Bilirubin Negative (NEG) Urine Urobilinogen Dipstick 0.2 mg/dL (0.2 mg/dL) Urine Leukocyte Esterase Negative (NEG) Urine RBC 0 /HPF (0-2) Urine WBC 0 /HPF (0-4) Urine Bacteria 0 /HPF (0-FEW) Urine Opiates Screen Pos (NEG) Urine Methadone Screen Neg (NEG) Urine Barbiturates Neg (NEG) Urine Phencyclidine Screen Neg (NEG) Urine Amphetamine/Methamphetamine Neg (NEG) Urine Benzodiazepines Screen Neg (NEG) Urine Cocaine Screen Neg (NEG) Urine Cannabinoids Screen Neg (NEG) Urine Ethyl Alcohol Neg (NEG) White Blood Count 7.3 x10^3/uL (4.0-11.0) 6.1 x10^3/uL (4.0-11.0) Red Blood Count 4.00 x10^6/uL (3.50-5.40) 3.99 x10^6/uL (3.50-5.40) Hemoglobin 12.9 g/dL (12.0-15.5) 12.8 g/dL (12.0-15.5) Hematocrit 38.2 % (36.0-47.0) 38.2 % (36.0-47.0) Mean Corpuscular Volume 96 fL (79-100) 96 fL (79-100) Mean Corpuscular Hemoglobin 32 pg (25-35) 32 pg (25-35) Mean Corpuscular Hemoglobin Concent 34 g/dL (31-37) 34 g/dL (31-37) Red Cell Distribution Width 14.4 % (11.5-14.5) 14.7 % (11.5-14.5) Platelet Count 328 x10^3/uL (140-400) 320 x10^3/uL (140-400) Neutrophils (%) (Auto) 57 % (31-73) 38 % (31-73) Lymphocytes (%) (Auto) 33 % (24-48) 48 % (24-48) Monocytes (%) (Auto) 8 % (0-9) 10 % (0-9) Eosinophils (%) (Auto) 1 % (0-3) 4 % (0-3) Basophils (%) (Auto) 1 % (0-3) 1 % (0-3) Neutrophils # (Auto) 4.1 x10^3/uL (1.8-7.7) 2.3 x10^3/uL (1.8-7.7) Lymphocytes # (Auto) 2.4 x10^3/uL (1.0-4.8) 2.9 x10^3/uL (1.0-4.8) Monocytes # (Auto) 0.6 x10^3/uL (0.0-1.1) 0.6 x10^3/uL (0.0-1.1) Eosinophils # (Auto) 0.1 x10^3/uL (0.0-0.7) 0.2 x10^3/uL (0.0-0.7) Basophils # (Auto) 0.1 x10^3/uL (0.0-0.2) 0.0 x10^3/uL (0.0-0.2) Prothrombin Time 12.2 SEC (11.7-14.0) Prothromb Time International Ratio 0.9 (0.8-1.1) Activated Partial Thromboplast Time 27 SEC (24-38) Sodium Level 140 mmol/L (136-145) 139 mmol/L (136-145) Potassium Level 3.8 mmol/L (3.5-5.1) 3.5 mmol/L (3.5-5.1) Chloride Level 102 mmol/L (98-107) 101 mmol/L (98-107) Carbon Dioxide Level 32 mmol/L (21-32) 31 mmol/L (21-32) Anion Gap 6 (6-14) 7 (6-14) Blood Urea Nitrogen 15 mg/dL (7-20) 21 mg/dL (7-20) Creatinine 1.1 mg/dL (0.6-1.0) 1.0 mg/dL (0.6-1.0) Estimated GFR (Cockcroft-Gault) 48.6 54.2 BUN/Creatinine Ratio 14 (6-20) Glucose Level 100 mg/dL (70-99) 84 mg/dL (70-99) Calcium Level 9.2 mg/dL (8.5-10.1) 9.3 mg/dL (8.5-10.1) Magnesium Level 2.2 mg/dL (1.8-2.4) Total Bilirubin 0.4 mg/dL (0.2-1.0) Aspartate Amino Transf (AST/SGOT) 16 U/L (15-37) Alanine Aminotransferase (ALT/SGPT) 12 U/L (14-59) Alkaline Phosphatase 103 U/L (46-116) Creatine Kinase 47 U/L (26-192) Creatine Kinase MB (Mass) 0.5 ng/mL (0.0-3.6) Creatine Kinase MB Relative Index % (0-4) Troponin I Quantitative < 0.017 ng/mL (0.000-0.055) WH-Ops-Y-Type Natriuretic Peptide 257 pg/mL (0-124) Total Protein 7.9 g/dL (6.4-8.2) Albumin 3.8 g/dL (3.4-5.0) Albumin/Globulin Ratio 0.9 (1.0-1.7) Thyroid Stimulating Hormone (TSH) 1.161 uIU/mL (0.358-3.74) Triglycerides Level 115 mg/dL (0-150) Cholesterol Level 215 mg/dL (0-200) LDL Cholesterol, Calculated 134 mg/dL (0-100) VLDL Cholesterol, Calculated 23 mg/dL (0-40) Non-HDL Cholesterol Calculated 157 mg/dL (0-129) HDL Cholesterol 58 mg/dL (40-60) Cholesterol/HDL Ratio 3.7 Laboratory Tests Test 08/30/19 04:35 White Blood Count 6.1 x10^3/uL (4.0-11.0) Red Blood Count 3.99 x10^6/uL (3.50-5.40) Hemoglobin 12.8 g/dL (12.0-15.5) Hematocrit 38.2 % (36.0-47.0) Mean Corpuscular Volume 96 fL (79-100) Mean Corpuscular Hemoglobin 32 pg (25-35) Mean Corpuscular Hemoglobin Concent 34 g/dL (31-37) Red Cell Distribution Width 14.7 % (11.5-14.5) Platelet Count 320 x10^3/uL (140-400) Neutrophils (%) (Auto) 38 % (31-73) Lymphocytes (%) (Auto) 48 % (24-48) Monocytes (%) (Auto) 10 % (0-9) Eosinophils (%) (Auto) 4 % (0-3) Basophils (%) (Auto) 1 % (0-3) Neutrophils # (Auto) 2.3 x10^3/uL (1.8-7.7) Lymphocytes # (Auto) 2.9 x10^3/uL (1.0-4.8) Monocytes # (Auto) 0.6 x10^3/uL (0.0-1.1) Eosinophils # (Auto) 0.2 x10^3/uL (0.0-0.7) Basophils # (Auto) 0.0 x10^3/uL (0.0-0.2) Sodium Level 139 mmol/L (136-145) Potassium Level 3.5 mmol/L (3.5-5.1) Chloride Level 101 mmol/L (98-107) Carbon Dioxide Level 31 mmol/L (21-32) Anion Gap 7 (6-14) Blood Urea Nitrogen 21 mg/dL (7-20) Creatinine 1.0 mg/dL (0.6-1.0) Estimated GFR (Cockcroft-Gault) 54.2 Glucose Level 84 mg/dL (70-99) Calcium Level 9.3 mg/dL (8.5-10.1) Triglycerides Level 115 mg/dL (0-150) Cholesterol Level 215 mg/dL (0-200) LDL Cholesterol, Calculated 134 mg/dL (0-100) VLDL Cholesterol, Calculated 23 mg/dL (0-40) Non-HDL Cholesterol Calculated 157 mg/dL (0-129) HDL Cholesterol 58 mg/dL (40-60) Cholesterol/HDL Ratio 3.7 Medications Current Medications Ondansetron HCl (Zofran) 4 mg PRN Q8HRS PRN IV NAUSEA/VOMITING; Start 08/28/19 at 15:15; Stop 08/29/19 at 15:14; Status DC Acetaminophen (Tylenol) 650 mg PRN Q4HRS PRN PO FEVER; Start 08/28/19 at 15:15; Stop 08/29/19 at 15:14; Status DC Aspirin (Ecotrin) 81 mg DAILY PO Last administered on 08/29/19at 08:38; Start 08/29/19 at 09:00; Stop 08/29/19 at 08:43; Status DC Gabapentin (Neurontin) 300 mg BID@0900,1400 PO Last administered on 08/30/19at 08:38; Start 08/29/19 at 09:00 Acetaminophen/ Hydrocodone Bitart (Lortab 10/325) 1 tab PRN Q8HRS PRN PO MODERATE PAIN, SEVERE PAIN Last administered on 08/30/19 08:39; Start 08/28/19 at 19:15 Vitamin D (Vitamin D3) 4,000 unit DAILY PO Last administered on 08/30/19 08:38; Start 08/29/19 at 09:00 Gabapentin (Neurontin) 600 mg QHS PO Last administered on 08/29/19 21:00; Start 08/28/19 at 21:00 Losartan Potassium (Cozaar) 100 mg DAILY PO Last administered on 08/29/19 08:37; Start 08/29/19 at 09:00 Pantoprazole Sodium (Protonix) 40 mg DAILYAC PO Last administered on 08/30/19 08:37; Start 08/29/19 at 07:30 Pioglitazone HCl (Actos) 30 mg DAILY PO Last administered on 08/30/19 08:37; Start 08/29/19 at 09:00 Hydrochlorothiazide (Hydrodiuril) 25 mg DAILY PO Last administered on 08/29/19 08:38; Start 08/29/19 at 09:00 Labetalol HCl (Normodyne Iv Push) 10 mg PRN Q10MIN PRN IVP ELEVATED BP, SEE COMMENTS; Start 08/29/19 at 08:45 Acetaminophen (Tylenol) 650 mg PRN Q6HRS PRN PO TEMP > 100.4F Last administered on 08/29/19at 15:40; Start 08/29/19 at 08:45 Acetaminophen (Tylenol Supp) 650 mg PRN Q4HRS PRN ME TEMP > 100.4F; Start 08/29/19 at 08:45 Aspirin (Ecotrin) 325 mg DAILYWBKFT PO Last administered on 08/30/19 08:37; Start 08/30/19 at 08:00 Iohexol (Omnipaque 300 Mg/ml) 60 ml 1X ONCE IV Last administered on 08/29/19at 11:44; Start 08/29/19 at 09:00; Stop 08/29/19 at 09:01; Status DC Info (CONTRAST GIVEN -- Rx MONITORING) 1 each PRN DAILY PRN MC SEE COMMENTS; Start 08/29/19 at 09:00; Stop 08/31/19 at 08:59 Active Scripts Active Reported Hydrocodone-Apap 10-325 (Hydrocodone Bit/Acetaminophen) 1 Tab Tablet 1 Tab PO PRN Q8HRS PRN Vitamin D3 (Cholecalciferol (Vitamin D3)) 4,000 Unit Capsule 1 Cap PO DAILY 30 Days Actos (Pioglitazone Hcl) 30 Mg Tablet 1 Tab PO DAILY 30 Days Gabapentin 600 Mg Tablet 600 Mg PO HS Gabapentin (Gabapentin) 300 Mg Capsule 300 Mg PO BID Losartan-Hctz 100-25 Mg Tab (Losartan/Hydrochlorothiazide) 1 Each Tablet 1 Tab PO DAILY Aspir 81 (Aspirin) 81 Mg Tablet. 81 Mg PO Omeprazole 20 Mg Capsule.dr 20 Mg PO DAILY Vitals/I & O Vital Sign - Last 24 Hours 08/29/19 08/29/19 08/29/19 08/29/19 11:00 14:00 14:00 19:40 Temp 98.1 98.3 98.3 98.1 98.3 98.3 Pulse 62 83 78 Resp 16 18 17 B/P (MAP) 96/42 (60) 141/79 (99) 98/42 (60) Pulse Ox 92 97 94 O2 Delivery Room Air Room Air Room Air Room Air 08/29/19 08/29/19 08/29/19 08/29/19 20:05 21:01 22:01 23:40 Temp 99.1 99.1 Pulse 72 Resp 17 B/P (MAP) 91/49 (63) Pulse Ox 92 O2 Delivery Room Air Room Air Room Air Room Air 08/30/19 08/30/19 08/30/19 08/30/19 03:40 07:00 08:39 08:42 Temp 98.1 98.1 98.1 98.1 Pulse 64 78 64 Resp 17 16 B/P (MAP) 103/45 (64) 112/57 (75) 103/45 Pulse Ox 92 92 O2 Delivery Room Air Room Air Room Air 08/30/19 09:39 O2 Delivery Room Air Intake and Output 08/29/19 08/29/19 08/30/19 15:00 23:00 07:00 Intake Total 400 ml 300 ml Balance 400 ml 300 ml Images BRAIN W/O CONTRAST History: TIA. Right arm weakness Technique: Multiplanar, multi sequential MR imaging was performed of the brain without contrast. Comparison: MRI December 07, 2017. Head CT August 28, 2019 Findings: Small acute left centrum semiovale white matter infarct. No acute intracranial hemorrhage. No mass effect. No hydrocephalus. Moderate brain parenchymal volume loss. Extensive focal and confluent foci of T2/flair hyperintensities throughout the hemispheric white matter, most often due to chronic microvascular ischemia, similar compared to prior. Chronic right small cerebellar infarct. Small right hippocampal remnant cysts. Right parieto-occipital cortical infarct. Imaged orbits are unremarkable. Imaged paranasal sinuses and mastoid air cells are clear. Impression: 1. Small acute left centrum semiovale infarct. 2. Extensive sequelae of chronic microvascular ischemia. 3. Moderate brain parenchymal volume loss. 4. Small chronic right parietal occipital cortical infarct and tiny right cerebellar infarct. CT ANGIOGRAPHY HEAD AND NECK History: TIA TECHNIQUE: Computed tomographic angiography of the head and neck was performed before and after the intravenous administration of contrast. Three-dimensional reconstructions were also performed. Volume rendered 3-D images were provided. Maximum intensity projection images were provided. Sagittal and coronal reformatted images are provided. Delayed scanning following IV contrast is noted with venous contamination. COMPARISON: CT head without contrast 08/28/2019, MRI brain without contrast 08/29/2019. FINDINGS: Angiographic findings: Bovine arch is present. Approximately 50-70 percent percent stenosis of the left subclavian artery origin noted with significant calcific involvement. Proximal right subclavian arterial calcification is notable with approximately 50 percent stenosis. Both common carotid arteries are patent without stenosis. Both internal carotid arteries are patent without stenosis. The external carotid systems are patent. Calcific room involvement of the right common carotid arterial bifurcation is noted. Calcific involvement of the left internal carotid artery proximally noted. No significant stenoses at these sites. The vertebral arteries are patent. The left vertebral artery is dominant. The basilar artery is patent. Both posterior cerebral arteries are patent although diffuse narrowing distally is present bilaterally of less than 50 percent. The posterior communicating arteries are visualized. The intracranial internal carotid arteries demonstrate no stenosis. The middle cerebral arteries are patent. The anterior cerebral arteries are patent. The anterior communicating artery is visualized. Nonangiographic findings: There is no intracranial hemorrhage. Green-white differentiation is preserved. The ventricles are normal in size and position. Old right parietal infarct noted. The paranasal sinuses appear clear. The orbits are unremarkable. The temporal bones are unremarkable. Bone windows reveal no suspicious lesions. Centrilobular emphysema is seen. The parotid glands and submandibular glands are unremarkable. The thyroid gland demonstrates no suspicious lesions. There are no laryngeal or pharyngeal masses. There are no pathologically enlarged lymph nodes. IMPRESSION: Distal bilateral posterior cerebral arterial atheromatous involvement and narrowing of less than 50 percent. 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 Approximately 50 percent stenosis of the right subclavian artery origin. Small old right parietal infarct. No dissection or aneurysm. JEANETTE VILLALOBOS MD Aug 30, 2019 10:28
[2019-08-30 11:00] VITALS: BP 97/50
--- NOTE | 2019-08-30 11:05 | PDOC ---
PROGRESS NOTES History of Present Illness History of Present Illness VTE Prophylaxis Ordered VTE Prophylaxis Devices: Yes VTE Pharmacological Prophylaxi: Yes Assessment/Plan Assessment/Plan impression Small acute left centrum semiovale infarct. MRI 08/29 Extensive sequelae of chronic microvascular ischemia. Moderate brain parenchymal volume loss. Small chronic right parietal occipital cortical infarct and tiny right cerebellar infarct. prior CVA on ct head 08/28 No intracranial hemorrhage. Advanced chronic ischemic changes in the white-matter. Old right parietal infarct. No new infarct. Prior right parietal occipital infarct, chronic, as well as multiple old lacunar strokes hx Mechanical falls, ON RECENT ECHO, Doppler and Color Flow revealed mild tricuspid regurgitation. PA pressure was estimated at 42 mmHg.C/W MODERATE PULM HTN hypertension GERD DIABETES plan admit neurology consult NEUROCHECKS Q 4 HRS pt/ot ST *Injection of bubbles documented an interatrial shunt (PFO/ASD) 08/30 cardiology consulted Signed by : Susie Milton, Electronically Approved : 08/30/2019 13:29:06 37 MIN PT EXAM d/c planning time , CHART REVIEW, > 50% OF TIME SPENT WITH EXAM, CHART REVIEW, PT CARE COORDINATION Vitals Vitals Vital Signs Date Time Temp Pulse Resp B/P (MAP) Pulse Ox O2 Delivery O2 Flow Rate FiO2 08/30/19 09:39 Room Air 08/30/19 08:42 64 103/45 08/30/19 07:00 98.1 16 92 98.1 Physical Exam General: Alert, Oriented X3, Cooperative, No acute distress Heart: Regular rate, Normal S1 Lungs: Clear Abdomen: Normal bowel sounds, Soft Extremities: No cyanosis, No tenderness/swelling Skin: No significant lesion Labs LABS Aortic Valve AoV Peak Reginald. 162.3cm/s AoV VTI 32.1cm AO Peak GR. 10.5mmHg LVOT Peak Reginald. 100.0cm/s AO Mean GR. 6mmHg JASPER (VMAX) 2.51cm2 JASPER (VTI) 2.90cm2 AI P 1/2 Time 658ms Mitral Valve MV E Velocity 70.2cm/s MV DECEL TIME 162ms MV A Velocity 100.4cm/s E/A Ratio 0.7 Tricuspid Valve TR P. Velocity 320cm/s RAP ESTIMATE 3mmHg TR Peak Gr. 41mmHg RVSP 44mmHg Pulmonary Vein S1 Velocity 54.4cm/s D2 Velocity 40.4cm/s LEFT VENTRICLE The left ventricle is normal size. There is normal left ventricular wall thickness. The left ventricular systolic function is normal. The Ejection Fraction is 55-60%. There is normal LV segmental wall motion. Transmitral Doppler flow pattern is Grade I-abnormal relaxation pattern. RIGHT VENTRICLE The right ventricle is normal size. The right ventricular systolic function is normal. ATRIA The left atrium is mildly dilated. The right atrium is borderline dilated. Injection of bubbles documented an interatrial shunt. AORTIC VALVE The aortic valve is mildly thickened but opens well. Doppler and Color Flow revealed mild aortic regurgitation. There is no significant aortic valvular stenosis. MITRAL VALVE The mitral valve is calcified but opens well. Mitral annular calcification is mild. There is no evidence of mitral valve prolapse. There is no mitral valve stenosis. Doppler and Color-flow revealed mild mitral regurgitation. TRICUSPID VALVE The tricuspid valve is normal in structure and function. Doppler and Color Flow revealed mild tricuspid regurgitation. There is moderate pulmonary hypertension. The PA pressure was estimated at 44 mmHg. There is no tricuspid valve stenosis. PULMONIC VALVE The pulmonic valve is not well visualized. Doppler and Color Flow revealed trace pulmonic valvular regurgitation. There is no pulmonic valvular stenosis. GREAT VESSELS The aortic root is normal in size. The ascending aorta is not well seen. The IVC is normal in size and collapses >50% with inspiration. PERICARDIAL EFFUSION There is no evidence of significant pericardial effusion. Critical Notification Critical Value: No <Conclusion> The left ventricular systolic function is normal. The Ejection Fraction is 55-60%. There is normal LV segmental wall motion. Transmitral Doppler flow pattern is Grade I-abnormal relaxation pattern. Mild aortic regurgitation. Mild mitral regurgitation. Mild tricuspid regurgitation. The PA pressure was estimated at 44 mmHg. There is no evidence of significant pericardial effusion. *Injection of bubbles documented an interatrial shunt (PFO/ASD) Signed by : Susie Milton, Electronically Approved : 08/30/2019 13:29:06 DICTATED and SIGNED BY: SUSIE MILTON MD DATE: 08/30/19 1327 Laboratory Tests Test 08/30/19 04:35 White Blood Count 6.1 x10^3/uL (4.0-11.0) Red Blood Count 3.99 x10^6/uL (3.50-5.40) Hemoglobin 12.8 g/dL (12.0-15.5) Hematocrit 38.2 % (36.0-47.0) Mean Corpuscular Volume 96 fL (79-100) Mean Corpuscular Hemoglobin 32 pg (25-35) Mean Corpuscular Hemoglobin Concent 34 g/dL (31-37) Red Cell Distribution Width 14.7 % (11.5-14.5) Platelet Count 320 x10^3/uL (140-400) Neutrophils (%) (Auto) 38 % (31-73) Lymphocytes (%) (Auto) 48 % (24-48) Monocytes (%) (Auto) 10 % (0-9) Eosinophils (%) (Auto) 4 % (0-3) Basophils (%) (Auto) 1 % (0-3) Neutrophils # (Auto) 2.3 x10^3/uL (1.8-7.7) Lymphocytes # (Auto) 2.9 x10^3/uL (1.0-4.8) Monocytes # (Auto) 0.6 x10^3/uL (0.0-1.1) Eosinophils # (Auto) 0.2 x10^3/uL (0.0-0.7) Basophils # (Auto) 0.0 x10^3/uL (0.0-0.2) Sodium Level 139 mmol/L (136-145) Potassium Level 3.5 mmol/L (3.5-5.1) Chloride Level 101 mmol/L (98-107) Carbon Dioxide Level 31 mmol/L (21-32) Anion Gap 7 (6-14) Blood Urea Nitrogen 21 mg/dL (7-20) Creatinine 1.0 mg/dL (0.6-1.0) Estimated GFR (Cockcroft-Gault) 54.2 Glucose Level 84 mg/dL (70-99) Calcium Level 9.3 mg/dL (8.5-10.1) Triglycerides Level 115 mg/dL (0-150) Cholesterol Level 215 mg/dL (0-200) LDL Cholesterol, Calculated 134 mg/dL (0-100) VLDL Cholesterol, Calculated 23 mg/dL (0-40) Non-HDL Cholesterol Calculated 157 mg/dL (0-129) HDL Cholesterol 58 mg/dL (40-60) Cholesterol/HDL Ratio 3.7 Assessment and Plan Assessmemt and Plan Problems Medical Problems: (1) Headache Status: Acute (2) Headache Status: Acute (3) Right arm weakness Status: Acute (4) Right arm weakness Status: Acute Ambulation Comments * Reciprocial gait pattern, equal step lengths, no LOB or postural sway. Patient stopped by fridge and able to reach can of soda from bottom self. Patient had to bend at knees vs bend forward at waist due to recent back procedure. Other Information * Patient returned back to recliner chair, LE's elevated, all needs w/n reach upon exiting. Learning Preferences * One-on-One Instruction * Demonstration Problem List (body system elements) * Strength Patient condition at conclusion of therapy * Pt in chair * Call light in reach * Phone in reach * PtIn no apparent distress * Pt denies further needs Communicated Patient Care With (Name, Title) * EDIN Bonner Goal 3 - Ambulation Assistance Required * Independent Goal 3 - Ambulation Distance * 250' Goal 3 - Ambulation Device * No Device Goal 3 Assessment * Appropriate - Continue Goal 4 - Stairs Assistance Required * Independent Goal 4 - Number of Stairs * >9 Goal 4 - Device on Stairs * Rail on Right Goal 4 Assessment * Appropriate - Continue Treatment Plan * Gait Training * Dynamic Balance Training Frequency of Treatment Expected * 5 visits/week Duration of Treatment Expected * 1 week Discharge Recommendations * Home independent * Home with Assistance Comment Review of Relevant I have reviewed the following items karan (where applicable) has been applied. Labs Laboratory Tests Test 08/28/19 12:11 08/28/19 12:15 08/28/19 12:37 08/30/19 04:35 Glucose (Fingerstick) 97 mg/dL (70-99) Urine Collection Type Unknown Urine Color Yellow Urine Clarity Clear Urine pH 6.5 Urine Specific Greene 1.010 Urine Protein Negative mg/dL (NEG-TRACE) Urine Glucose (UA) Negative mg/dL (NEG) Urine Ketones (Stick) Negative mg/dL (NEG) Urine Blood Negative (NEG) Urine Nitrite Negative (NEG) Urine Bilirubin Negative (NEG) Urine Urobilinogen Dipstick 0.2 mg/dL (0.2 mg/dL) Urine Leukocyte Esterase Negative (NEG) Urine RBC 0 /HPF (0-2) Urine WBC 0 /HPF (0-4) Urine Bacteria 0 /HPF (0-FEW) Urine Opiates Screen Pos (NEG) Urine Methadone Screen Neg (NEG) Urine Barbiturates Neg (NEG) Urine Phencyclidine Screen Neg (NEG) Urine Amphetamine/Methamphetamine Neg (NEG) Urine Benzodiazepines Screen Neg (NEG) Urine Cocaine Screen Neg (NEG) Urine Cannabinoids Screen Neg (NEG) Urine Ethyl Alcohol Neg (NEG) White Blood Count 7.3 x10^3/uL (4.0-11.0) 6.1 x10^3/uL (4.0-11.0) Red Blood Count 4.00 x10^6/uL (3.50-5.40) 3.99 x10^6/uL (3.50-5.40) Hemoglobin 12.9 g/dL (12.0-15.5) 12.8 g/dL (12.0-15.5) Hematocrit 38.2 % (36.0-47.0) 38.2 % (36.0-47.0) Mean Corpuscular Volume 96 fL (79-100) 96 fL (79-100) Mean Corpuscular Hemoglobin 32 pg (25-35) 32 pg (25-35) Mean Corpuscular Hemoglobin Concent 34 g/dL (31-37) 34 g/dL (31-37) Red Cell Distribution Width 14.4 % (11.5-14.5) 14.7 % (11.5-14.5) Platelet Count 328 x10^3/uL (140-400) 320 x10^3/uL (140-400) Neutrophils (%) (Auto) 57 % (31-73) 38 % (31-73) Lymphocytes (%) (Auto) 33 % (24-48) 48 % (24-48) Monocytes (%) (Auto) 8 % (0-9) 10 % (0-9) Eosinophils (%) (Auto) 1 % (0-3) 4 % (0-3) Basophils (%) (Auto) 1 % (0-3) 1 % (0-3) Neutrophils # (Auto) 4.1 x10^3/uL (1.8-7.7) 2.3 x10^3/uL (1.8-7.7) Lymphocytes # (Auto) 2.4 x10^3/uL (1.0-4.8) 2.9 x10^3/uL (1.0-4.8) Monocytes # (Auto) 0.6 x10^3/uL (0.0-1.1) 0.6 x10^3/uL (0.0-1.1) Eosinophils # (Auto) 0.1 x10^3/uL (0.0-0.7) 0.2 x10^3/uL (0.0-0.7) Basophils # (Auto) 0.1 x10^3/uL (0.0-0.2) 0.0 x10^3/uL (0.0-0.2) Prothrombin Time 12.2 SEC (11.7-14.0) Prothromb Time International Ratio 0.9 (0.8-1.1) Activated Partial Thromboplast Time 27 SEC (24-38) Sodium Level 140 mmol/L (136-145) 139 mmol/L (136-145) Potassium Level 3.8 mmol/L (3.5-5.1) 3.5 mmol/L (3.5-5.1) Chloride Level 102 mmol/L (98-107) 101 mmol/L (98-107) Carbon Dioxide Level 32 mmol/L (21-32) 31 mmol/L (21-32) Anion Gap 6 (6-14) 7 (6-14) Blood Urea Nitrogen 15 mg/dL (7-20) 21 mg/dL (7-20) Creatinine 1.1 mg/dL (0.6-1.0) 1.0 mg/dL (0.6-1.0) Estimated GFR (Cockcroft-Gault) 48.6 54.2 BUN/Creatinine Ratio 14 (6-20) Glucose Level 100 mg/dL (70-99) 84 mg/dL (70-99) Calcium Level 9.2 mg/dL (8.5-10.1) 9.3 mg/dL (8.5-10.1) Magnesium Level 2.2 mg/dL (1.8-2.4) Total Bilirubin 0.4 mg/dL (0.2-1.0) Aspartate Amino Transf (AST/SGOT) 16 U/L (15-37) Alanine Aminotransferase (ALT/SGPT) 12 U/L (14-59) Alkaline Phosphatase 103 U/L (46-116) Creatine Kinase 47 U/L (26-192) Creatine Kinase MB (Mass) 0.5 ng/mL (0.0-3.6) Creatine Kinase MB Relative Index % (0-4) Troponin I Quantitative < 0.017 ng/mL (0.000-0.055) SY-Pzy-M-Type Natriuretic Peptide 257 pg/mL (0-124) Total Protein 7.9 g/dL (6.4-8.2) Albumin 3.8 g/dL (3.4-5.0) Albumin/Globulin Ratio 0.9 (1.0-1.7) Thyroid Stimulating Hormone (TSH) 1.161 uIU/mL (0.358-3.74) Triglycerides Level 115 mg/dL (0-150) Cholesterol Level 215 mg/dL (0-200) LDL Cholesterol, Calculated 134 mg/dL (0-100) VLDL Cholesterol, Calculated 23 mg/dL (0-40) Non-HDL Cholesterol Calculated 157 mg/dL (0-129) HDL Cholesterol 58 mg/dL (40-60) Cholesterol/HDL Ratio 3.7 Laboratory Tests Test 08/30/19 04:35 White Blood Count 6.1 x10^3/uL (4.0-11.0) Red Blood Count 3.99 x10^6/uL (3.50-5.40) Hemoglobin 12.8 g/dL (12.0-15.5) Hematocrit 38.2 % (36.0-47.0) Mean Corpuscular Volume 96 fL (79-100) Mean Corpuscular Hemoglobin 32 pg (25-35) Mean Corpuscular Hemoglobin Concent 34 g/dL (31-37) Red Cell Distribution Width 14.7 % (11.5-14.5) Platelet Count 320 x10^3/uL (140-400) Neutrophils (%) (Auto) 38 % (31-73) Lymphocytes (%) (Auto) 48 % (24-48) Monocytes (%) (Auto) 10 % (0-9) Eosinophils (%) (Auto) 4 % (0-3) Basophils (%) (Auto) 1 % (0-3) Neutrophils # (Auto) 2.3 x10^3/uL (1.8-7.7) Lymphocytes # (Auto) 2.9 x10^3/uL (1.0-4.8) Monocytes # (Auto) 0.6 x10^3/uL (0.0-1.1) Eosinophils # (Auto) 0.2 x10^3/uL (0.0-0.7) Basophils # (Auto) 0.0 x10^3/uL (0.0-0.2) Sodium Level 139 mmol/L (136-145) Potassium Level 3.5 mmol/L (3.5-5.1) Chloride Level 101 mmol/L (98-107) Carbon Dioxide Level 31 mmol/L (21-32) Anion Gap 7 (6-14) Blood Urea Nitrogen 21 mg/dL (7-20) Creatinine 1.0 mg/dL (0.6-1.0) Estimated GFR (Cockcroft-Gault) 54.2 Glucose Level 84 mg/dL (70-99) Calcium Level 9.3 mg/dL (8.5-10.1) Triglycerides Level 115 mg/dL (0-150) Cholesterol Level 215 mg/dL (0-200) LDL Cholesterol, Calculated 134 mg/dL (0-100) VLDL Cholesterol, Calculated 23 mg/dL (0-40) Non-HDL Cholesterol Calculated 157 mg/dL (0-129) HDL Cholesterol 58 mg/dL (40-60) Cholesterol/HDL Ratio 3.7 Medications Current Medications Ondansetron HCl (Zofran) 4 mg PRN Q8HRS PRN IV NAUSEA/VOMITING; Start 08/28/19 at 15:15; Stop 08/29/19 at 15:14; Status DC Acetaminophen (Tylenol) 650 mg PRN Q4HRS PRN PO FEVER; Start 08/28/19 at 15:15; Stop 08/29/19 at 15:14; Status DC Aspirin (Ecotrin) 81 mg DAILY PO Last administered on 08/29/19at 08:38; Start 08/29/19 at 09:00; Stop 08/29/19 at 08:43; Status DC Gabapentin (Neurontin) 300 mg BID@0900,1400 PO Last administered on 08/30/19at 08:38; Start 08/29/19 at 09:00 Acetaminophen/ Hydrocodone Bitart (Lortab 10/325) 1 tab PRN Q8HRS PRN PO MODER ATE PAIN, SEVERE PAIN Last administered on 08/30/19at 08:39; Start 08/28/19 at 19:15 Vitamin D (Vitamin D3) 4,000 unit DAILY PO Last administered on 08/30/19at 08:38; Start 08/29/19 at 09:00 Gabapentin (Neurontin) 600 mg QHS PO Last administered on 08/29/19at 21:00; Start 08/28/19 at 21:00 Losartan Potassium (Cozaar) 100 mg DAILY PO Last administered on 08/29/19at 08:37; Start 08/29/19 at 09:00 Pantoprazole Sodium (Protonix) 40 mg DAILYAC PO Last administered on 08/30/19 08:37; Start 08/29/19 at 07:30 Pioglitazone HCl (Actos) 30 mg DAILY PO Last administered on 08/30/19 08:37; Start 08/29/19 at 09:00 Hydrochlorothiazide (Hydrodiuril) 25 mg DAILY PO Last administered on 08/29/19at 08:38; Start 08/29/19 at 09:00 Labetalol HCl (Normodyne Iv Push) 10 mg PRN Q10MIN PRN IVP ELEVATED BP, SEE COMMENTS; Start 08/29/19 at 08:45 Acetaminophen (Tylenol) 650 mg PRN Q6HRS PRN PO TEMP > 100.4F Last administered on 08/29/19at 15:40; Start 08/29/19 at 08:45 Acetaminophen (Tylenol Supp) 650 mg PRN Q4HRS PRN IA TEMP > 100.4F; Start 08/29/19 at 08:45 Aspirin (Ecotrin) 325 mg DAILYWBKFT PO Last administered on 08/30/19at 08:37; Start 08/30/19 at 08:00 Iohexol (Omnipaque 300 Mg/ml) 60 ml 1X ONCE IV Last administered on 08/29/19at 11:44; Start 08/29/19 at 09:00; Stop 08/29/19 at 09:01; Status DC Info (CONTRAST GIVEN -- Rx MONITORING) 1 each PRN DAILY PRN MC SEE COMMENTS; Start 08/29/19 at 09:00; Stop 08/31/19 at 08:59 Active Scripts Active Reported Hydrocodone-Apap 10-325 (Hydrocodone Bit/Acetaminophen) 1 Tab Tablet 1 Tab PO PRN Q8HRS PRN Vitamin D3 (Cholecalciferol (Vitamin D3)) 4,000 Unit Capsule 1 Cap PO DAILY 30 Days Actos (Pioglitazone Hcl) 30 Mg Tablet 1 Tab PO DAILY 30 Days Gabapentin 600 Mg Tablet 600 Mg PO HS Gabapentin (Gabapentin) 300 Mg Capsule 300 Mg PO BID Losartan-Hctz 100-25 Mg Tab (Losartan/Hydrochlorothiazide) 1 Each Tablet 1 Tab PO DAILY Aspir 81 (Aspirin) 81 Mg Tablet.dr 81 Mg PO Omeprazole 20 Mg Capsule.dr 20 Mg PO DAILY Vitals/I & O Vital Sign - Last 24 Hours 08/29/19 08/29/19 08/29/19 08/29/19 14:00 14:00 19:40 20:05 Temp 98.3 98.3 98.3 98.3 Pulse 83 78 Resp 18 17 B/P (MAP) 141/79 (99) 98/42 (60) Pulse Ox 97 94 O2 Delivery Room Air Room Air Room Air Room Air 08/29/19 08/29/19 08/29/19 08/30/19 21:01 22:01 23:40 03:40 Temp 99.1 98.1 99.1 98.1 Pulse 72 64 Resp 17 17 B/P (MAP) 91/49 (63) 103/45 (64) Pulse Ox 92 92 O2 Delivery Room Air Room Air Room Air Room Air 08/30/19 08/30/19 08/30/19 08/30/19 07:00 08:39 08:42 09:39 Temp 98.1 98.1 Pulse 78 64 Resp 16 B/P (MAP) 112/57 (75) 103/45 Pulse Ox 92 O2 Delivery Room Air Room Air Room Air Intake and Output 08/29/19 08/29/19 08/30/19 15:00 23:00 07:00 Intake Total 400 ml 300 ml Balance 400 ml 300 ml GILL KRISHNAMURTHY MD Aug 30, 2019 11:05
--- NOTE | 2019-08-30 13:29 | CARD ---
MR#: [id number] Date of Study: 08/30/2019 Ordering Physician: GILL KRISHNAMURTHY, Referring Physician: GILL KRISHNAMURTHY Tech: Katie Ashby RDCS APPROVED REPORT EXAM: Two-dimensional and M-mode echocardiogram with Doppler and color Doppler. Other Information Quality : Good INDICATION CVA/TIA Echo Enhancing Agent Agent/Amount Used: Agitated Saline 16mL 2D DIMENSIONS RVDd3.0 (2.9-3.5cm)Left Atrium(2D)4.3 (1.6-4.0cm) IVSd1.0 (0.7-1.1cm)Aortic Root(2D)3.1 (2.0-3.7cm) LVDd5.1 (3.9-5.9cm)LVOT Diameter2.3 (1.8-2.4cm) PWd1.0 (0.7-1.1cm)LVDs3.1 (2.5-4.0cm) FS (%) 30.0 %SV87.2 ml LVEF(%)60.0 (>50%) Aortic Valve AoV Peak Reginald.162.3cm/sAoV VTI32.1cm AO Peak GR.10.5mmHgLVOT Peak Reginald.100.0cm/s AO Mean GR.6mmHgAVA (VMAX)2.51cm2 JASPER (VTI)2.27nv5KF P 1/2 Tagm732fb Mitral Valve MV E Ihiziwfi10.2cm/sMV DECEL [id number] MV A Moxjhtnz059.4cm/sE/A Ratio0.7 Tricuspid Valve TR P. Sfkdbsqf993ne/sRAP [id number] TR Peak Gr.23mdGqSYCY78xtPn Pulmonary Vein S1 Rinnxmse59.4cm/sD2 Hljpcxgg87.4cm/s LEFT VENTRICLE The left ventricle is normal size. There is normal left ventricular wall thickness. The left ventricu lar systolic function is normal. The Ejection Fraction is 55-60%. There is normal LV segmental wall m otion. Transmitral Doppler flow pattern is Grade I-abnormal relaxation pattern. RIGHT VENTRICLE The right ventricle is normal size. The right ventricular systolic function is normal. ATRIA The left atrium is mildly dilated. The right atrium is borderline dilated. Injection of bubbles docum ented an interatrial shunt. AORTIC VALVE The aortic valve is mildly thickened but opens well. Doppler and Color Flow revealed mild aortic regu rgitation. There is no significant aortic valvular stenosis. MITRAL VALVE The mitral valve is calcified but opens well. Mitral annular calcification is mild. There is no evide nce of mitral valve prolapse. There is no mitral valve stenosis. Doppler and Color-flow revealed mild mitral regurgitation. TRICUSPID VALVE The tricuspid valve is normal in structure and function. Doppler and Color Flow revealed mild tricusp id regurgitation. There is moderate pulmonary hypertension. The PA pressure was estimated at 44 mmHg. There is no tricuspid valve stenosis. PULMONIC VALVE The pulmonic valve is not well visualized. Doppler and Color Flow revealed trace pulmonic valvular re gurgitation. There is no pulmonic valvular stenosis. GREAT VESSELS The aortic root is normal in size. The ascending aorta is not well seen. The IVC is normal in size an d collapses >50% with inspiration. PERICARDIAL EFFUSION There is no evidence of significant pericardial effusion. Critical Notification Critical Value: No <Conclusion> The left ventricular systolic function is normal. The Ejection Fraction is 55-60%. There is normal LV segmental wall motion. Transmitral Doppler flow pattern is Grade I-abnormal relaxation pattern. Mild aortic regurgitation. Mild mitral regurgitation. Mild tricuspid regurgitation. The PA pressure was estimated at 44 mmHg. There is no evidence of significant pericardial effusion. *Injection of bubbles documented an interatrial shunt (PFO/ASD) Signed by : Jeff Milton, Electronically Approved : 08/30/2019 13:29:06
--- NOTE | 2019-08-30 13:38 | NUR ---
SS following for discharge planning. SS reviewed pt chart. Pt is from home with spouse and is currently on room air. PT/OT recommended home at discharge. SS will continue to follow for discharge planning.
[2019-08-30 15:00] VITALS: BP 108/38
[2019-08-30 19:20] VITALS: BP 125/62
[2019-08-30 23:54] VITALS: BP 102/53
[2019-08-31 03:55] VITALS: BP 98/47
[2019-08-31 07:00] VITALS: BP 124/50
[2019-08-31] MEDS: ACETAMINOPHEN 325 MG TABLET. PO PRN (08:06)
[2019-08-31] MEDS: PANTOPRAZOLE 40 MG TABLET.DR. PO SCH (08:06)
[2019-08-31] MEDS: GABAPENTIN 300 MG CAPSULE. PO SCH ×2 (08:52→13:41)
[2019-08-31] MEDS: hydroCHLOROthiazide 25 MG TABLET PO SCH (08:52)
[2019-08-31] MEDS: PIOGLITAZONE 15 MG TABLET. PO SCH (08:52)
[2019-08-31] MEDS: CHOLECALCIFEROL (VITAMIN D3) 1,000 UNIT TABLET PO SCH (08:53)
[2019-08-31] MEDS: ASPIRIN ENTERIC COATED 325 MG TABLET.DR. PO SCH (08:53)
[2019-08-31] MEDS: LOSARTAN POTASSIUM 50 MG TABLET. PO SCH (08:53)
--- NOTE | 2019-08-31 09:49 | PDOC ---
PROGRESS NOTES History of Present Illness History of Present Illness VTE Prophylaxis Ordered VTE Prophylaxis Devices: Yes VTE Pharmacological Prophylaxi: Yes DISCHARGE DX Assessment/Plan impression Small acute left centrum semiovale infarct. MRI 08/29 Extensive sequelae of chronic microvascular ischemia. Moderate brain parenchymal volume loss. Small chronic right parietal occipital cortical infarct and tiny right cerebellar infarct. prior CVA on ct head 08/28 No intracranial hemorrhage. Advanced chronic ischemic changes in the white-matter. Old right parietal infarct. No new infarct. Prior right parietal occipital infarct, chronic, as well as multiple old lacunar strokes hx Mechanical falls, ON RECENT ECHO, Doppler and Color Flow revealed mild tricuspid regurgitation. PA pressure was estimated at 42 mmHg.C/W MODERATE PULM HTN hypertension GERD DIABETES plan admit neurology consult NEUROCHECKS Q 4 HRS pt/ot ST *Injection of bubbles documented an interatrial shunt (PFO/ASD) 08/30 cardiology consulted Signed by : Jeff Milton, Electronically Approved : 08/30/2019 13:29:06 OK TO D/C TODAY 08/31 , NEEDS TO SEE CARDIOLOGY IN 1-2 WEEKS 27 MIN PT EXAM d/c planning time , CHART REVIEW, > 50% OF TIME SPENT WITH EXAM, CHART REVIEW, PT CARE COORDINATION Vitals Vitals Vital Signs Date Time Temp Pulse Resp B/P (MAP) Pulse Ox O2 Delivery O2 Flow Rate FiO2 08/31/19 08:53 66 124/50 08/31/19 07:00 97.9 16 97 Room Air 97.9 Physical Exam General: Alert, Oriented X3, Cooperative, No acute distress Heart: Regular rate, Normal S1 Lungs: Clear Abdomen: Normal bowel sounds, Soft Extremities: No cyanosis, No tenderness/swelling Skin: No significant lesion Assessment and Plan Assessmemt and Plan Problems Medical Problems: (1) Headache Status: Acute (2) Headache Status: Acute (3) Right arm weakness Status: Acute (4) Right arm weakness Status: Acute Comment Review of Relevant I have reviewed the following items karan (where applicable) has been applied. Labs Laboratory Tests Test 08/30/19 04:35 White Blood Count 6.1 x10^3/uL (4.0-11.0) Red Blood Count 3.99 x10^6/uL (3.50-5.40) Hemoglobin 12.8 g/dL (12.0-15.5) Hematocrit 38.2 % (36.0-47.0) Mean Corpuscular Volume 96 fL (79-100) Mean Corpuscular Hemoglobin 32 pg (25-35) Mean Corpuscular Hemoglobin Concent 34 g/dL (31-37) Red Cell Distribution Width 14.7 % (11.5-14.5) Platelet Count 320 x10^3/uL (140-400) Neutrophils (%) (Auto) 38 % (31-73) Lymphocytes (%) (Auto) 48 % (24-48) Monocytes (%) (Auto) 10 % (0-9) Eosinophils (%) (Auto) 4 % (0-3) Basophils (%) (Auto) 1 % (0-3) Neutrophils # (Auto) 2.3 x10^3/uL (1.8-7.7) Lymphocytes # (Auto) 2.9 x10^3/uL (1.0-4.8) Monocytes # (Auto) 0.6 x10^3/uL (0.0-1.1) Eosinophils # (Auto) 0.2 x10^3/uL (0.0-0.7) Basophils # (Auto) 0.0 x10^3/uL (0.0-0.2) Sodium Level 139 mmol/L (136-145) Potassium Level 3.5 mmol/L (3.5-5.1) Chloride Level 101 mmol/L (98-107) Carbon Dioxide Level 31 mmol/L (21-32) Anion Gap 7 (6-14) Blood Urea Nitrogen 21 mg/dL (7-20) Creatinine 1.0 mg/dL (0.6-1.0) Estimated GFR (Cockcroft-Gault) 54.2 Glucose Level 84 mg/dL (70-99) Calcium Level 9.3 mg/dL (8.5-10.1) Triglycerides Level 115 mg/dL (0-150) Cholesterol Level 215 mg/dL (0-200) LDL Cholesterol, Calculated 134 mg/dL (0-100) VLDL Cholesterol, Calculated 23 mg/dL (0-40) Non-HDL Cholesterol Calculated 157 mg/dL (0-129) HDL Cholesterol 58 mg/dL (40-60) Cholesterol/HDL Ratio 3.7 Medications Current Medications Ondansetron HCl (Zofran) 4 mg PRN Q8HRS PRN IV NAUSEA/VOMITING; Start 08/28/19 at 15:15; Stop 08/29/19 at 15:14; Status DC Acetaminophen (Tylenol) 650 mg PRN Q4HRS PRN PO FEVER; Start 08/28/19 at 15:15; Stop 08/29/19 at 15:14; Status DC Aspirin (Ecotrin) 81 mg DAILY PO Last administered on 08/29/19 08:38; Start 08/29/19 at 09:00; Stop 08/29/19 at 08:43; Status DC Gabapentin (Neurontin) 300 mg BID@0900,1400 PO Last administered on 08/31/19 08:52; Start 08/29/19 at 09:00 Acetaminophen/ Hydrocodone Bitart (Lortab 10/325) 1 tab PRN Q8HRS PRN PO MODERATE PAIN, SEVERE PAIN Last administered on 08/30/19 21:33; Start 08/28/19 at 19:15 Vitamin D (Vitamin D3) 4,000 unit DAILY PO Last administered on 08/31/19 08:53; Start 08/29/19 at 09:00 Gabapentin (Neurontin) 600 mg QHS PO Last administered on 08/30/19 21:33; Start 08/28/19 at 21:00 Losartan Potassium (Cozaar) 100 mg DAILY PO Last administered on 08/31/19 08:53; Start 08/29/19 at 09:00 Pantoprazole Sodium (Protonix) 40 mg DAILYAC PO Last administered on 08/31/19 08:06; Start 08/29/19 at 07:30 Pioglitazone HCl (Actos) 30 mg DAILY PO Last administered on 08/31/19 08:52; Start 08/29/19 at 09:00 Hydrochlorothiazide (Hydrodiuril) 25 mg DAILY PO Last administered on 08/31/19 08:52; Start 08/29/19 at 09:00 Labetalol HCl (Normodyne Iv Push) 10 mg PRN Q10MIN PRN IVP ELEVATED BP, SEE COMMENTS; Start 08/29/19 at 08:45 Acetaminophen (Tylenol) 650 mg PRN Q6HRS PRN PO TEMP > 100.4F Last administered on 12/14/19at 08:06; Start 08/29/19 at 08:45 Acetaminophen (Tylenol Supp) 650 mg PRN Q4HRS PRN [place] TEMP > 100.4F; Start 08/29/19 at 08:45 Aspirin (Ecotrin) 325 mg DAILYWBKFT PO Last administered on 08/31/19at 08:53; Start 08/30/19 at 08:00 Iohexol (Omnipaque 300 Mg/ml) 60 ml 1X ONCE IV Last administered on 08/29/19at 11:44; Start 08/29/19 at 09:00; Stop 08/29/19 at 09:01; Status DC Info (CONTRAST GIVEN -- Rx MONITORING) 1 each PRN DAILY PRN MC SEE COMMENTS; Start 08/29/19 at 09:00; Stop 08/31/19 at 08:59; Status DC Active Scripts Active Reported Hydrocodone-Apap 10-325 (Hydrocodone Bit/Acetaminophen) 1 Tab Tablet 1 Tab PO PRN Q8HRS PRN Vitamin D3 (Cholecalciferol (Vitamin D3)) 4,000 Unit Capsule 1 Cap PO DAILY 30 D ays Actos (Pioglitazone Hcl) 30 Mg Tablet 1 Tab PO DAILY 30 Days Gabapentin 600 Mg Tablet 600 Mg PO HS Gabapentin (Gabapentin) 300 Mg Capsule 300 Mg PO BID Losartan-Hctz 100-25 Mg Tab (Losartan/Hydrochlorothiazide) 1 Each Tablet 1 Tab PO DAILY Aspir 81 (Aspirin) 81 Mg Tablet. 81 Mg PO Omeprazole 20 Mg Capsule. 20 Mg PO DAILY Vitals/I & O Vital Sign - Last 24 Hours 08/30/19 08/30/19 08/30/19 08/30/19 11:00 15:00 19:20 20:20 Temp 98.1 98.2 97.8 98.1 98.2 97.8 Pulse 76 65 68 Resp 16 16 18 B/P (MAP) 97/50 (66) 108/38 (61) 125/62 (83) Pulse Ox 95 94 95 O2 Delivery Room Air Room Air Room Air Room Air 08/30/19 08/30/19 08/30/19 08/31/19 21:33 22:33 23:54 03:55 Temp 98.4 98.3 98.4 98.3 Pulse 68 65 Resp 20 20 18 18 B/P (MAP) 102/53 (69) 98/47 (64) Pulse Ox 93 92 O2 Delivery Room Air Room Air Room Air 08/31/19 08/31/19 07:00 08:53 Temp 97.9 97.9 Pulse 66 66 Resp 16 B/P (MAP) 124/50 (74) 124/50 Pulse Ox 97 O2 Delivery Room Air Intake and Output 08/30/19 08/30/19 08/31/19 15:00 23:00 07:00 Intake Total 200 ml 550 ml Balance 200 ml 550 ml GILL KRISHNAMURTHY MD Aug 31, 2019 09:49
[2019-08-31 11:28] VITALS: BP 109/88
--- NOTE | 2019-08-31 12:04 | PDOC ---
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 Approximately 50 percent stenosis of the right subclavian artery origin. Low-dose aspirin failure Prior silent infarcts Chronic neck and back pain History of falls, none recently. Note hyperlipidemia PFO Plan PFO closure per cardiology, elective basis, note that this current stroke is small-vessel disease and unlikely to be related to the PFO Okay for discharge I told her okay to travel to [place] for [place], but no driving Increased aspirin to 325 mg daily Rehabilitation screening Follow-up with her primary physician for institution of a non-statin lipid- lowering agent, e.g. [id number], gets myalgias with statins. Okay to discharge later today. Does not need further rehab according to physical and occupational therapy Subjective No complaints, wants to go to [place] for [place] Objective Vital Signs Date Time Temp Pulse Resp B/P (MAP) Pulse Ox O2 Delivery O2 Flow Rate FiO2 08/31/19 11:28 97.8 89 16 109/88 (95) 95 Room Air 97.8 Intake and Output 08/31/19 07:00 Intake Total 750 ml Balance 750 ml Intake Oral 750 ml # Voids 2 PHYSICAL EXAM Alert. Oriented to time, place and person. PERRL. EOMI. CN: no focal findings. Muscle tone: normal. Muscle strength: 5/5 DTR: 2+ Plantar reflex: flexor Gait: normal. Sensory exam: no abnormal findings. No cerebellar signs elicited. Review of Relevant I have reviewed the following items karan (where applicable) has been applied. Labs Laboratory Tests Test 08/30/19 04:35 White Blood Count 6.1 x10^3/uL (4.0-11.0) Red Blood Count 3.99 x10^6/uL (3.50-5.40) Hemoglobin 12.8 g/dL (12.0-15.5) Hematocrit 38.2 % (36.0-47.0) Mean Corpuscular Volume 96 fL (79-100) Mean Corpuscular Hemoglobin 32 pg (25-35) Mean Corpuscular Hemoglobin Concent 34 g/dL (31-37) Red Cell Distribution Width 14.7 % (11.5-14.5) Platelet Count 320 x10^3/uL (140-400) Neutrophils (%) (Auto) 38 % (31-73) Lymphocytes (%) (Auto) 48 % (24-48) Monocytes (%) (Auto) 10 % (0-9) Eosinophils (%) (Auto) 4 % (0-3) Basophils (%) (Auto) 1 % (0-3) Neutrophils # (Auto) 2.3 x10^3/uL (1.8-7.7) Lymphocytes # (Auto) 2.9 x10^3/uL (1.0-4.8) Monocytes # (Auto) 0.6 x10^3/uL (0.0-1.1) Eosinophils # (Auto) 0.2 x10^3/uL (0.0-0.7) Basophils # (Auto) 0.0 x10^3/uL (0.0-0.2) Sodium Level 139 mmol/L (136-145) Potassium Level 3.5 mmol/L (3.5-5.1) Chloride Level 101 mmol/L (98-107) Carbon Dioxide Level 31 mmol/L (21-32) Anion Gap 7 (6-14) Blood Urea Nitrogen 21 mg/dL (7-20) Creatinine 1.0 mg/dL (0.6-1.0) Estimated GFR (Cockcroft-Gault) 54.2 Glucose Level 84 mg/dL (70-99) Calcium Level 9.3 mg/dL (8.5-10.1) Triglycerides Level 115 mg/dL (0-150) Cholesterol Level 215 mg/dL (0-200) LDL Cholesterol, Calculated 134 mg/dL (0-100) VLDL Cholesterol, Calculated 23 mg/dL (0-40) Non-HDL Cholesterol Calculated 157 mg/dL (0-129) HDL Cholesterol 58 mg/dL (40-60) Cholesterol/HDL Ratio 3.7 Medications Current Medications Ondansetron HCl (Zofran) 4 mg PRN Q8HRS PRN IV NAUSEA/VOMITING; Start 08/28/19 at 15:15; Stop 08/29/19 at 15:14; Status DC Acetaminophen (Tylenol) 650 mg PRN Q4HRS PRN PO FEVER; Start 08/28/19 at 15:15; Stop 08/29/19 at 15:14; Status DC Aspirin (Ecotrin) 81 mg DAILY PO Last administered on 08/29/19 08:38; Start 08/29/19 at 09:00; Stop 08/29/19 at 08:43; Status DC Gabapentin (Neurontin) 300 mg BID@0900,1400 PO Last administered on 08/31/19 08:52; Start 08/29/19 at 09:00 Acetaminophen/ Hydrocodone Bitart (Lortab 10/325) 1 tab PRN Q8HRS PRN PO MODERATE PAIN, SEVERE PAIN Last administered on 08/30/19 21:33; Start 08/28/19 at 19:15 Vitamin D (Vitamin D3) 4,000 unit DAILY PO Last administered on 08/31/19 08:53; Start 08/29/19 at 09:00 Gabapentin (Neurontin) 600 mg QHS PO Last administered on 08/30/19 21:33; Start 08/28/19 at 21:00 Losartan Potassium (Cozaar) 100 mg DAILY PO Last administered on 08/31/19 08:53; Start 08/29/19 at 09:00 Pantoprazole Sodium (Protonix) 40 mg DAILYAC PO Last administered on 08/31/19 08:06; Start 08/29/19 at 07:30 Pioglitazone HCl (Actos) 30 mg DAILY PO Last administered on 08/31/19 08:52; Start 08/29/19 at 09:00 Hydrochlorothiazide (Hydrodiuril) 25 mg DAILY PO Last administered on 08/31/19 08:52; Start 08/29/19 at 09:00 Labetalol HCl (Normodyne Iv Push) 10 mg PRN Q10MIN PRN IVP ELEVATED BP, SEE COMMENTS; Start 08/29/19 at 08:45 Acetaminophen (Tylenol) 650 mg PRN Q6HRS PRN PO TEMP > 100.4F Last administered on 08/31/19 08:06; Start 08/29/19 at 08:45 Acetaminophen (Tylenol Supp) 650 mg PRN Q4HRS PRN [place] TEMP > 100.4F; Start 08/29/19 at 08:45 Aspirin (Ecotrin) 325 mg DAILYWBKFT PO Last administered on 08/31/19at 08:53; Start 08/30/19 at 08:00 Iohexol (Omnipaque 300 Mg/ml) 60 ml 1X ONCE IV Last administered on 08/29/19at 11:44; Start 08/29/19 at 09:00; Stop 08/29/19 at 09:01; Status DC Info (CONTRAST GIVEN -- Rx MONITORING) 1 each PRN DAILY PRN MC SEE COMMENTS; Start 08/29/19 at 09:00; Stop 08/31/19 at 08:59; Status DC Active Scripts Active Reported Hydrocodone-Apap 10-325 (Hydrocodone Bit/Acetaminophen) 1 Tab Tablet 1 Tab PO PRN Q8HRS PRN Vitamin D3 (Cholecalciferol (Vitamin D3)) 4,000 Unit Capsule 1 Cap PO DAILY 30 Days Actos (Pioglitazone Hcl) 30 Mg Tablet 1 Tab PO DAILY 30 Days Gabapentin 600 Mg Tablet 600 Mg PO HS Gabapentin (Gabapentin) 300 Mg Capsule 300 Mg PO BID Losartan-Hctz 100-25 Mg Tab (Losartan/Hydrochlorothiazide) 1 Each Tablet 1 Tab PO DAILY Aspir 81 (Aspirin) 81 Mg Tablet. 81 Mg PO Omeprazole 20 Mg Capsule. 20 Mg PO DAILY Vitals/I & O Vital Sign - Last 24 Hours 08/30/19 08/30/19 08/30/19 08/30/19 15:00 19:20 20:20 21:33 Temp 98.2 97.8 98.2 97.8 Pulse 65 68 Resp 16 18 20 B/P (MAP) 108/38 (61) 125/62 (83) Pulse Ox 94 95 O2 Delivery Room Air Room Air Room Air Room Air 08/30/19 08/30/19 08/31/19 08/31/19 22:33 23:54 03:55 07:00 Temp 98.4 98.3 97.9 98.4 98.3 97.9 Pulse 68 65 66 Resp 20 18 18 16 B/P (MAP) 102/53 (69) 98/47 (64) 124/50 (74) Pulse Ox 93 92 97 O2 Delivery Room Air Room Air Room Air 08/31/19 08/31/19 08/31/19 07:55 08:53 11:28 Temp 97.8 97.8 Pulse 66 89 Resp 16 B/P (MAP) 124/50 109/88 (95) Pulse Ox 95 O2 Delivery Room Air Room Air Intake and Output 08/30/19 08/30/19 08/31/19 15:00 23:00 07:00 Intake Total 200 ml 550 ml Balance 200 ml 550 ml Images Echo: LEFT VENTRICLE The left ventricle is normal size. There is normal left ventricular wall thickness. The left ventricular systolic function is normal. The Ejection Fraction is 55-60%. There is normal LV segmental wall motion. Transmitral Doppler flow pattern is Grade I-abnormal relaxation pattern. RIGHT VENTRICLE The right ventricle is normal size. The right ventricular systolic function is normal. ATRIA The left atrium is mildly dilated. The right atrium is borderline dilated. Injection of bubbles documented an interatrial shunt. AORTIC VALVE The aortic valve is mildly thickened but opens well. Doppler and Color Flow reve aled mild aortic regurgitation. There is no significant aortic valvular stenosis. MITRAL VALVE The mitral valve is calcified but opens well. Mitral annular calcification is mild. There is no evidence of mitral valve prolapse. There is no mitral valve st enosis. Doppler and Color-flow revealed mild mitral regurgitation. TRICUSPID VALVE The tricuspid valve is normal in structure and function. Doppler and Color Flow revealed mild tricuspid regurgitation. There is moderate pulmonary hypertension. The PA pressure was estimated at 44 mmHg. There is no tricuspid valve stenosis. PULMONIC VALVE The pulmonic valve is not well visualized. Doppler and Color Flow revealed trace pulmonic valvular regurgitation. There is no pulmonic valvular stenosis. GREAT VESSELS The aortic root is normal in size. The ascending aorta is not well seen. The IVC is normal in size and collapses >50% with inspiration. PERICARDIAL EFFUSION There is no evidence of significant pericardial effusion. Critical Notification Critical Value: No <Conclusion> The left ventricular systolic function is normal. The Ejection Fraction is 55-60%. There is normal LV segmental wall motion. Transmitral Doppler flow pattern is Grade I-abnormal relaxation pattern. Mild aortic regurgitation. Mild mitral regurgitation. Mild tricuspid regurgitation. The PA pressure was estimated at 44 mmHg. There is no evidence of significant pericardial effusion. *Injection of bubbles documented an interatrial shunt (PFO/ASD) JEANETTE VILLALOBOS MD Aug 31, 2019 12:04
--- NOTE | 2019-08-31 12:12 | PDOC3 ---
Discharge Summary Date of Admission: Aug 28, 2019 Date of Discharge: Aug 31, 2019 Follow-Up: By telephone Admitting Diagnosis comment: DISCHARGE DX Assessment/Plan impression Small acute left centrum semiovale infarct. MRI 08/29 Extensive sequelae of chronic microvascular ischemia. Moderate brain parenchymal volume loss. Small chronic right parietal occipital cortical infarct and tiny right cerebellar infarct. prior CVA on ct head 08/28 No intracranial hemorrhage. Advanced chronic ischemic changes in the white-matter. Old right parietal infarct. No new infarct. Prior right parietal occipital infarct, chronic, as well as multiple old lacunar strokes hx Mechanical falls, ON RECENT ECHO, Doppler and Color Flow revealed mild tricuspid regurgitation. PA pressure was estimated at 42 mmHg.C/W MODERATE PULM HTN hypertension GERD DIABETES plan admit neurology consult NEUROCHECKS Q 4 HRS pt/ot ST *Injection of bubbles documented an interatrial shunt (PFO/ASD) 08/30 cardiology consulted Signed by : Jeff Milton, Electronically Approved : 08/30/2019 13:29:06 OK TO D/C TODAY 08/31 , NEEDS TO SEE CARDIOLOGY IN 1-2 WEEKS 27 MIN PT EXAM d/c planning time , CHART REVIEW, > 50% OF TIME SPENT WITH EXAM, CHART REVIEW, PT CARE COORDINATION Vitals Vitals Vital Signs Date Time Temp Pulse Resp B/P (MAP) Pulse Ox O2 Delivery O2 Flow Rate FiO2 08/31/19 08:53 66 124/50 08/31/19 07:00 97.9 16 97 Room Air 97.9 Physical Exam General: Alert, Oriented X3, Cooperative, No acute distress Heart: Regular rate, Normal S1 Lungs: Clear Abdomen: Normal bowel sounds, Soft Extremities: No cyanosis, No tenderness/swelling Skin: No significant lesion FINAL DIAGNOSIS Problems Medical Problems: (1) Headache Status: Acute (2) Headache Status: Acute (3) Right arm weakness Status: Acute (4) Right arm weakness Status: Acute Brief Hospital Course Ms. Pabon is a 73 old [sex] who presented with [ ACUTE CVA ] CONDITION AT DISCHARGE: Improved Discharge Medications Current Medications Ondansetron HCl (Zofran) 4 mg PRN Q8HRS PRN IV NAUSEA/VOMITING; Start 08/28/19 at 15:15; Stop 08/29/19 at 15:14; Status DC Acetaminophen (Tylenol) 650 mg PRN Q4HRS PRN PO FEVER; Start 08/28/19 at 15:15; Stop 08/29/19 at 15:14; Status DC Aspirin (Ecotrin) 81 mg DAILY PO Last administered on 08/29/19 08:38; Start 08/29/19 at 09:00; Stop 08/29/19 at 08:43; Status DC Gabapentin (Neurontin) 300 mg BID@0900,1400 PO Last administered on 08/31/19 08:52; Start 08/29/19 at 09:00 Acetaminophen/ Hydrocodone Bitart (Lortab 10/325) 1 tab PRN Q8HRS PRN PO MODERATE PAIN, SEVERE PAIN Last administered on 08/30/19 21:33; Start 08/28/19 at 19:15 Vitamin D (Vitamin D3) 4,000 unit DAILY PO Last administered on 08/31/19 08:53; Start 08/29/19 at 09:00 Gabapentin (Neurontin) 600 mg QHS PO Last administered on 08/30/19 21:33; Start 08/28/19 at 21:00 Losartan Potassium (Cozaar) 100 mg DAILY PO Last administered on 08/31/19 08:53; Start 08/29/19 at 09:00 Pantoprazole Sodium (Protonix) 40 mg DAILYAC PO Last administered on 08/31/19 08:06; Start 08/29/19 at 07:30 Pioglitazone HCl (Actos) 30 mg DAILY PO Last administered on 08/31/19 08:52; Start 08/29/19 at 09:00 Hydrochlorothiazide (Hydrodiuril) 25 mg DAILY PO Last administered on 08:52; Start 08/29/19 at 09:00 Labetalol HCl (Normodyne Iv Push) 10 mg PRN Q10MIN PRN IVP ELEVATED BP, SEE COMMENTS; Start 08/29/19 at 08:45 Acetaminophen (Tylenol) 650 mg PRN Q6HRS PRN PO TEMP > 100.4F Last administered on 08/31/19 08:06; Start 08/29/19 at 08:45 Acetaminophen (Tylenol Supp) 650 mg PRN Q4HRS PRN [place] TEMP > 100.4F; Start 08/29/19 at 08:45 Aspirin (Ecotrin) 325 mg DAILYWBKFT PO Last administered on 08/31/19at 08:53; Start 08/30/19 at 08:00 Iohexol (Omnipaque 300 Mg/ml) 60 ml 1X ONCE IV Last administered on 08/29/19at 11:44; Start 08/29/19 at 09:00; Stop 08/29/19 at 09:01; Status DC Info (CONTRAST GIVEN -- Rx MONITORING) 1 each PRN DAILY PRN MC SEE COMMENTS; Start 08/29/19 at 09:00; Stop 08/31/19 at 08:59; Status DC Active Scripts Active Reported Hydrocodone-Apap 10-325 (Hydrocodone Bit/Acetaminophen) 1 Tab Tablet 1 Tab PO PRN Q8HRS PRN Vitamin D3 (Cholecalciferol (Vitamin D3)) 4,000 Unit Capsule 1 Cap PO DAILY 30 Days Actos (Pioglitazone Hcl) 30 Mg Tablet 1 Tab PO DAILY 30 Days Gabapentin 600 Mg Tablet 600 Mg PO HS Gabapentin (Gabapentin) 300 Mg Capsule 300 Mg PO BID Losartan-Hctz 100-25 Mg Tab (Losartan/Hydrochlorothiazide) 1 Each Tablet 1 Tab PO DAILY Aspir 81 (Aspirin) 81 Mg Tablet.dr 81 Mg PO Omeprazole 20 Mg Capsule.dr 20 Mg PO DAILY Vital Signs Vital Signs Date Time Temp Pulse Resp B/P (MAP) Pulse Ox O2 Delivery O2 Flow Rate FiO2 08/31/19 11:28 97.8 89 16 109/88 (95) 95 Room Air 97.8 Labs Laboratory Tests Test 08/30/19 04:35 White Blood Count 6.1 x10^3/uL (4.0-11.0) Red Blood Count 3.99 x10^6/uL (3.50-5.40) Hemoglobin 12.8 g/dL (12.0-15.5) Hematocrit 38.2 % (36.0-47.0) Mean Corpuscular Volume 96 fL (79-100) Mean Corpuscular Hemoglobin 32 pg (25-35) Mean Corpuscular Hemoglobin Concent 34 g/dL (31-37) Red Cell Distribution Width 14.7 % (11.5-14.5) Platelet Count 320 x10^3/uL (140-400) Neutrophils (%) (Auto) 38 % (31-73) Lymphocytes (%) (Auto) 48 % (24-48) Monocytes (%) (Auto) 10 % (0-9) Eosinophils (%) (Auto) 4 % (0-3) Basophils (%) (Auto) 1 % (0-3) Neutrophils # (Auto) 2.3 x10^3/uL (1.8-7.7) Lymphocytes # (Auto) 2.9 x10^3/uL (1.0-4.8) Monocytes # (Auto) 0.6 x10^3/uL (0.0-1.1) Eosinophils # (Auto) 0.2 x10^3/uL (0.0-0.7) Basophils # (Auto) 0.0 x10^3/uL (0.0-0.2) Sodium Level 139 mmol/L (136-145) Potassium Level 3.5 mmol/L (3.5-5.1) Chloride Level 101 mmol/L (98-107) Carbon Dioxide Level 31 mmol/L (21-32) Anion Gap 7 (6-14) Blood Urea Nitrogen 21 mg/dL (7-20) Creatinine 1.0 mg/dL (0.6-1.0) Estimated GFR (Cockcroft-Gault) 54.2 Glucose Level 84 mg/dL (70-99) Calcium Level 9.3 mg/dL (8.5-10.1) Triglycerides Level 115 mg/dL (0-150) Cholesterol Level 215 mg/dL (0-200) LDL Cholesterol, Calculated 134 mg/dL (0-100) VLDL Cholesterol, Calculated 23 mg/dL (0-40) Non-HDL Cholesterol Calculated 157 mg/dL (0-129) HDL Cholesterol 58 mg/dL (40-60) Cholesterol/HDL Ratio 3.7 Allergies Allergies Coded Allergies Type Severity Reaction Last Updated Verified No Known Drug Allergies 12/07/17 No Disposition/Orders: D/C to Home w/ GILL ZHANG MD Aug 31, 2019 12:12
[2019-08-31] MEDS ORDERED: ACET325T9 PO (12:14)
[2019-08-31] MEDS ORDERED: ASPI325T11 PO (12:14)
--- NOTE | 2019-08-31 12:15 | SNU/HH DC ---
DISCHARGE WITH HOME HEALTH DISCHARGE INFORMATION: Final Diagnosis: Problems Medical Problems: (1) Headache Status: Acute (2) Headache Status: Acute (3) Right arm weakness Status: Acute (4) Right arm weakness Status: Acute Condition on Discharge: Stable CODE STATUS: Code Status: Full HOME HEALTH: Face to Face: I certify this patient is under my care and that I, or a nurse practitioner or physician's department assistant working with me, had a face to face encounter that meets the physician face to face encounter requirements with this patient on []. Medical Complications: CVA RN For Eval/Treatment: Yes Physical Therapy For: Evalulation/Treatment Occupational Therapy For: Evaluation/Treatment Speech Language Pathology For: Evaluation/Treatment Home Health Aide For: Self-care PBX INSPECTOR For: Community Resources Pt Meets Homebound Status: Fatigue w/ amb. POST DISCHARGE ORDERS: Activity Instructions for Disc: Activity as tolerated DIET AFTER DISCHARGE: ADA CHECKS AFTER DISCHARGE: Checks after discharge: Check blood press - daily TREATMENT/EQUIPMENT ORDERS: Adaptive Equipment Issued: Front wheeled walker CERTIFICATION STATEMENT: Certification Statement: Certification Statement: Based on the above finding, I certify that this patient is confined to the home and needs intermittent assisted care, physical therapy and/or speech therapy, or continues to need occupational therapy.~ This patient is under my care, and I have initiated the establishment of the plan of care.~ This patient will be followed by myself or a community physician who will periodically review the plan of care. Home Meds Active Scripts Acetaminophen (TYLENOL) 325 Mg Tablet, 650 MG PO PRN Q6HRS PRN for TEMP > 100.4F for 30 Days, #30 TAB Prov:GILL KRISHNAMURTHY MD 08/31/19 Aspirin (ASPIRIN EC) 325 Mg Tablet., 325 MG PO DAILYWBKFT for STROKE for 30 Days, #30 TAB.SR Prov:GILL KRISHNAMURTHY MD 08/31/19 Reported Medications Hydrocodone Bit/Acetaminophen (HYDROCODONE-APAP 10-325 ) 1 Tab Tablet, 1 TAB PO PRN Q8HRS PRN for PAIN, TAB 0 Refills 08/28/19 Cholecalciferol (Vitamin D3) (VITAMIN D3) 4,000 Unit Capsule, 1 CAP PO DAILY for SUPPLEMENT for 30 Days, #30 CAP 0 Refills 08/28/19 Pioglitazone Hcl (ACTOS) 30 Mg Tablet, 1 TAB PO DAILY for DM II for 30 Days, #30 TAB 0 Refills 08/28/19 Gabapentin (GABAPENTIN) 600 Mg Tablet, 600 MG PO HS for NEUROGENIC PAIN, TAB 08/28/19 Gabapentin (GABAPENTIN ) 300 Mg Capsule, 300 MG PO BID for NEUROGENIC PAIN, CAP 10/04/18 Losartan/Hydrochlorothiazide (LOSARTAN-HCTZ 100-25 MG TAB) 1 Each Tablet, 1 TAB PO DAILY, #30 TAB 5 Refills 12/07/17 Omeprazole (OMEPRAZOLE) 20 Mg Capsule.dr, 20 MG PO DAILY, CAP 03/05/14 Discontinued Reported Medications Aspirin (ASPIR 81) 81 Mg Tablet.dr, 81 MG PO, TAB 03/05/14 Multivitamin (MULTIVITAMINS) 1 Each Tablet, 1 TAB PO DAILY for supplement, #90 TAB 3 Refills 06/12/19 GILL KRISHNAMURTHY MD Aug 31, 2019 12:15
--- NOTE | 2019-08-31 12:42 | PDOC2 ---
CONSULT Date of Consult Date of Consult DATE: 08/31/19 TIME: 12:34 Reason for Consult Reason for Consult: Intra atrial shunt Referring Physician Referring Physician: Dr. Us Identification/Chief Complaint Chief Complaint right arm numbness Source Source: Chart review, Patient History of Present Illness Reason for Visit: The patient is a 73-year-old female with a history of previous TIAs and CVAs as well as hypertension and hyperlipidemia who presented to the emergency room several days ago for right arm numbness and headaches. She was admitted to be evaluated by the neurology service. Workup has included a brain MRI that showed a small acute left centrum semiovale valvular infarct as well as chronic microvascular ischemia. 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 Additionally an echocardiogram showed a interatrial shunt. I reviewed today the patient is feeling well. She denies chest pain, shortness of breath, dizziness or lightheadedness. Her neurological symptoms have resolved. Past Medical History Cardiovascular: HTN, Hyperlipidemia Pulmonary: Pneumonia CENTRAL NERVOUS SYSTEM: CVA GI: Diverticulosis (itis), GERD, Peptic Ulcer disease, Other (hiatal hernia, d iarrhea) Heme/Onc: Cancer (breast cancer) Musculoskeletal: low back pain (and neck pain), Osteoarthritis Endocrine: Osteoporosis Past Surgical History Past Surgical History: Cataract Removal, Hysterectomy, Other (breast lumpectomy and lymph node dissection, left knee, left heel spur) Family History Family History: Hypertension Social History No ALCOHOL: none Drugs: None Current Problem List Problem List Problems Medical Problems: (1) Headache Status: Acute (2) Headache Status: Acute (3) Right arm weakness Status: Acute (4) Right arm weakness Status: Acute Current Medications Current Medications Current Medications Ondansetron HCl (Zofran) 4 mg PRN Q8HRS PRN IV NAUSEA/VOMITING; Start 08/28/19 at 15:15; Stop 08/29/19 at 15:14; Status DC Acetaminophen (Tylenol) 650 mg PRN Q4HRS PRN PO FEVER; Start 08/28/19 at 15:15; Stop 08/29/19 at 15:14; Status DC Aspirin (Ecotrin) 81 mg DAILY PO Last administered on 08/29/19at 08:38; Start 08/29/19 at 09:00; Stop 08/29/19 at 08:43; Status DC Gabapentin (Neurontin) 300 mg BID@0900,1400 PO Last administered on 08/31/19 08:52; Start 08/29/19 at 09:00 Acetaminophen/ Hydrocodone Bitart (Lortab 10/325) 1 tab PRN Q8HRS PRN PO MODERATE PAIN, SEVERE PAIN Last administered on 08/30/19 21:33; Start 08/28/19 at 19:15 Vitamin D (Vitamin D3) 4,000 unit DAILY PO Last administered on 08/31/19 08:53; Start 08/29/19 at 09:00 Gabapentin (Neurontin) 600 mg QHS PO Last administered on 08/30/19 21:33; Start 08/28/19 at 21:00 Losartan Potassium (Cozaar) 100 mg DAILY PO Last administered on 08/31/19 08:53; Start 08/29/19 at 09:00 Pantoprazole Sodium (Protonix) 40 mg DAILYAC PO Last administered on 08/31/19 08:06; Start 08/29/19 at 07:30 Pioglitazone HCl (Actos) 30 mg DAILY PO Last administered on 08/31/19 08:52; Start 08/29/19 at 09:00 Hydrochlorothiazide (Hydrodiuril) 25 mg DAILY PO Last administered on 08/31/19 08:52; Start 08/29/19 at 09:00 Labetalol HCl (Normodyne Iv Push) 10 mg PRN Q10MIN PRN IVP ELEVATED BP, SEE COMMENTS; Start 08/29/19 at 08:45 Acetaminophen (Tylenol) 650 mg PRN Q6HRS PRN PO TEMP > 100.4F Last administered on 08/31/19 08:06; Start 08/29/19 at 08:45 Acetaminophen (Tylenol Supp) 650 mg PRN Q4HRS PRN MT TEMP > 100.4F; Start 08/29/19 at 08:45 Aspirin (Ecotrin) 325 mg DAILYWBKFT PO Last administered on 08/31/19 08:53; Start 08/30/19 at 08:00 Iohexol (Omnipaque 300 Mg/ml) 60 ml 1X ONCE IV Last administered on 08/29/19 11:44; Start 08/29/19 at 09:00; Stop 08/29/19 at 09:01; Status DC Info (CONTRAST GIVEN -- Rx MONITORING) 1 each PRN DAILY PRN MC SEE COMMENTS; Start 08/29/19 at 09:00; Stop 08/31/19 at 08:59; Status DC Active Scripts Active Tylenol (Acetaminophen) 325 Mg Tablet 650 Mg PO PRN Q6HRS PRN 30 Days Aspirin Ec (Aspirin) 325 Mg Tablet. 325 Mg PO DAILYWBKFT 30 Days Reported Hydrocodone-Apap 10-325 (Hydrocodone Bit/Acetaminophen) 1 Tab Tablet 1 Tab PO PRN Q8HRS PRN Vitamin D3 (Cholecalciferol (Vitamin D3)) 4,000 Unit Capsule 1 Cap PO DAILY 30 Days Actos (Pioglitazone Hcl) 30 Mg Tablet 1 Tab PO DAILY 30 Days Gabapentin 600 Mg Tablet 600 Mg PO HS Gabapentin (Gabapentin) 300 Mg Capsule 300 Mg PO BID Losartan-Hctz 100-25 Mg Tab (Losartan/Hydrochlorothiazide) 1 Each Tablet 1 Tab PO DAILY Omeprazole 20 Mg Capsule. 20 Mg PO DAILY Allergies Allergies: Coded Allergies: No Known Drug Allergies (Unverified , 12/07/17) ROS General: YES: Fatigue Neurological: Yes Other (right arm numbness and headaches) Physical Exam General: No acute distress HEENT: Atraumatic Lungs: Clear to auscultation Heart: Regular rate Abdomen: Normal bowel sounds Vitals VITALS Vital Signs Date Time Temp Pulse Resp B/P (MAP) Pulse Ox O2 Delivery O2 Flow Rate FiO2 08/31/19 11:28 97.8 89 16 109/88 (95) 95 Room Air 97.8 Labs Labs Laboratory Tests Test 08/30/19 04:35 White Blood Count 6.1 x10^3/uL (4.0-11.0) Red Blood Count 3.99 x10^6/uL (3.50-5.40) Hemoglobin 12.8 g/dL (12.0-15.5) Hematocrit 38.2 % (36.0-47.0) Mean Corpuscular Volume 96 fL (79-100) Mean Corpuscular Hemoglobin 32 pg (25-35) Mean Corpuscular Hemoglobin Concent 34 g/dL (31-37) Red Cell Distribution Width 14.7 % (11.5-14.5) Platelet Count 320 x10^3/uL (140-400) Neutrophils (%) (Auto) 38 % (31-73) Lymphocytes (%) (Auto) 48 % (24-48) Monocytes (%) (Auto) 10 % (0-9) Eosinophils (%) (Auto) 4 % (0-3) Basophils (%) (Auto) 1 % (0-3) Neutrophils # (Auto) 2.3 x10^3/uL (1.8-7.7) Lymphocytes # (Auto) 2.9 x10^3/uL (1.0-4.8) Monocytes # (Auto) 0.6 x10^3/uL (0.0-1.1) Eosinophils # (Auto) 0.2 x10^3/uL (0.0-0.7) Basophils # (Auto) 0.0 x10^3/uL (0.0-0.2) Sodium Level 139 mmol/L (136-145) Potassium Level 3.5 mmol/L (3.5-5.1) Chloride Level 101 mmol/L (98-107) Carbon Dioxide Level 31 mmol/L (21-32) Anion Gap 7 (6-14) Blood Urea Nitrogen 21 mg/dL (7-20) Creatinine 1.0 mg/dL (0.6-1.0) Estimated GFR (Cockcroft-Gault) 54.2 Glucose Level 84 mg/dL (70-99) Calcium Level 9.3 mg/dL (8.5-10.1) Triglycerides Level 115 mg/dL (0-150) Cholesterol Level 215 mg/dL (0-200) LDL Cholesterol, Calculated 134 mg/dL (0-100) VLDL Cholesterol, Calculated 23 mg/dL (0-40) Non-HDL Cholesterol Calculated 157 mg/dL (0-129) HDL Cholesterol 58 mg/dL (40-60) Cholesterol/HDL Ratio 3.7 Images Images MRI and CT scan results as above Assessment/Plan Assessment/Plan 1. TIA with workup as above. Symptoms have resolved. Neurology has seen the patient. She is scheduled for discharge later today. 2. Intra-atrial shunt seen on echo. We'll follow-up the patient as an outpatient. Neurology evaluation believe this event is secondary to small vessel disease and is unlikely to be directly related to the patient's PFO. 3. Hypertension. Better control continue medications. 4. Hyperlipidemia. Continue present medications. 5. History of right breast cancer. From a cardiac viewpoint the patient may be discharged today. We will follow-up as an outpatient. Thank you for allowing us to participate in the care of your patient. NOEMI MUÑIZ MD Aug 31, 2019 12:42
--- NOTE | 2019-08-31 14:25 | NUR ---
Discharge Note: Patient was discharged home with home health services. Patients IV was discontinued per RN without any complications. Patients spouse at the bedside at the time of discharge education. Patient was given discharge summary/instructions, follow-ups, and educational material. Patient was given stroke prevention education. Patient did not have any further questions or concerns. Patient was taken down to the main entrance via wheelchair with all personal belongings, accompanied by IN[employer] Sa[employer], where her spouse was waiting for him to take her home.
== END 2019-08-31 14:00 | disposition home health service (06) | DRG 65 ==
LOC: ER 11:48 → 5 SOUTH 13:07 → ER 15:15 → 6 SOUTH 08-29 13:58
PROVIDERS: ADMIT Family Medicine; ATTEND Family Medicine
DX: I63.9 Cerebral infarction, unspecified (principal); Q21.1 Atrial septal defect; I67.2 Cerebral atherosclerosis; I10 Essential (primary) hypertension; M81.0 Age-related osteoporosis without current pathological fracture; M19.90 Unspecified osteoarthritis, unspecified site; E78.00 Pure hypercholesterolemia, unspecified; E78.5 Hyperlipidemia, unspecified; K21.9 Gastro-esophageal reflux disease without esophagitis; I27.20 Pulmonary hypertension, unspecified; E11.51 Type 2 diabetes mellitus with diabetic peripheral angiopathy without gangrene; G89.29 Other chronic pain; Z85.3 Personal history of malignant neoplasm of breast; Z87.891 Personal history of nicotine dependence; Z87.11 Personal history of peptic ulcer disease; Z87.01 Personal history of pneumonia (recurrent); Z90.710 Acquired absence of both cervix and uterus; Z98.49 Cataract extraction status, unspecified eye; Z90.721 Acquired absence of ovaries, unilateral; Z86.73 Personal history of transient ischemic attack (TIA), and cerebral infarction without residual deficits; Z82.49 Family history of ischemic heart disease and other diseases of the circulatory system
CPT/HCPCS: 36415; 70450; 70496; 70498; 70551; 71045; 80048; 80053; 80061; 80307; 81001; 82553; 82962; 83735; 83880; 84443; 84484; 85025; 85610; 85730; 93005; 93306; Q9967; 92610; 97530; 99285-25; G0378

== ENCOUNTER → 2020-02-24 | Outpatient (CLI) | payer MEDICARE ==
[~2020-02-24] MED LIST changes: +ACET325T9 PO; +ASPI325T11 PO; +CHOL40003 PO; +HYDR-2769 PO; +MULT-445 PO; -MULT1TAB52 PO; -OMEP-229 PO; +OMEP20CA16 PO; +PIOG30TA41 PO
--- NOTE | 2020-02-24 18:15 | RAD ---
DATE: 02/24/2020 10:03 AM EXAM: MAMMO FREDERIC SCREENING BILATERAL HISTORY: Screening COMPARISON: 02/12/2019 Bilateral CC and MLO views of the breasts were performed. Bilateral breast tomosynthesis was performed in CC and MLO projections. This study was interpreted with the benefit of Computerized Aided Detection (CAD). FINDINGS: Breast Density: SCATTERED The breast parenchyma shows scattered fibroglandular densities. Breast parenchyma level B No suspicious masses, microcalcifications or architectural distortion is present to suggest malignancy in either breast. The visualized axillae are unremarkable. IMPRESSION: No mammographic evidence of malignancy. BI-RADS CATEGORY: 1 NEGATIVE RECOMMENDED FOLLOW-UP: 12M 12 MONTH FOLLOW-UP Annual screening mammography is recommended, unless clinically indicated sooner based on symptoms or change in physical exam. PQRS compliance statement: Patient information was entered into a reminder system with a target due date 02/24/2021 for the next mammogram. Mammography is a sensitive method for finding small breast cancers, but it does not detect them all and is not a substitute for careful clinical examination. A negative mammogram does not negate a clinically suspicious finding and should not result in delay in biopsying a clinically suspicious abnormality. "Our facility is accredited by the [employer] Mammography Program."
== END | disposition home or self-care (01) ==
LOC: MAMMO 10:20
PROVIDERS: ATTEND Family Medicine
DX: Z12.31 Encounter for screening mammogram for malignant neoplasm of breast (principal); N64.89 Other specified disorders of breast
CPT/HCPCS: 77063; 77067

== ENCOUNTER 2020-06-11 14:31 | Emergency (ER) | payer MEDICARE ==
[~2020-06-11] VITALS: Ht 160 cm; Wt 74.0 kg
--- NOTE | 2020-06-11 16:57 | RAD ---
PORTABLE CHEST 1V Clinical Indication: Reason: soa / Spl. Instructions: / History: Comparison: AP chest, 08/28/2019. Findings: Atherosclerotic aortic arch. The cardiomediastinal silhouette is normal. Lungs are clear. There is no pneumothorax. No pleural effusion is appreciated. No acute bone abnormality. Spinal stimulator leads are redemonstrated. IMPRESSION: No acute cardiopulmonary process. Electronically signed by: Laureano Osullivan MD (06/11/2020 4:54 PM) [facility]PITALRes[facility]
[2020-06-11 17:29] LABS: BILIRUBIN,URINE NEGATIVE (NEG); CLARITY,URINE CLEAR; COLOR,URINE YELLOW; NITRITE,URINE NEGATIVE (NEG); PH,URINE 6.5 (<5.0-8.0); PROTEIN,URINE NEGATIVE (NEG-TRACE)
[2020-06-11 17:33] LABS: BACTERIA,URINE 0 /HPF (0-FEW); RBC,URINE 0 /HPF (0-2); SQUAMOUS EPITHELIAL CELL,UR FEW /LPF; WBC,URINE OCC /HPF (0-4)
[2020-06-11 17:35] LABS: BARBITURATES NEG (NEG); BENZODIAZEPINES NEG (NEG); CANNABINOIDS NEG (NEG); COCAINE NEG (NEG); METHADONE NEG (NEG); OPIATES NEG (NEG); PHENCYCLIDINE NEG (NEG)
[2020-06-11 17:40] LABS: AMPHETAMINE/METHAMPHETAMINE NEG (NEG)
--- NOTE | 2020-06-11 18:18 | EKG ---
[facility] [address] [place] [address] Test Date: 2020-06-11 Test Time: 17:06:37 Pat Name: MICHAEL LUTHER Department: Room: Gender: F Transmission Inspector: : 1945 Requested By: YOLA RIVERA Order Number: [id number] Reading MD: Measurements Intervals [place] Rate: 73 P: 49 GA: 130 QRS: 47 QRSD: 96 T: 19 QT: 394 QTc: 438 Interpretive Statements SINUS RHYTHM NORMAL ECG RI6.02 No previous ECG available for comparison
[2020-06-11 19:16] LABS: BASO % 1 % (0-3); EOS % 0 % (0-3); HEMATOCRIT 38.9 % (36.0-47.0); LYMPH # 2.5 x10^3/uL (1.0-4.8); LYMPH % 30 % (24-48); MEAN CORPUSCULAR HEMOGLOBIN 32 pg (25-35); MEAN CORPUSCULAR HGB CONC 33 g/dL (31-37); MEAN CORPUSCULAR VOLUME 96 fL (79-100); MONO % 13 % (0-9); NEUT # 4.7 x10^3/uL (1.8-7.7); NEUT % 57 % (31-73); PLATELET COUNT 256 x10^3/uL (140-400); RED BLOOD COUNT 4.04 x10^6/uL (3.50-5.40); RED CELL DISTRIBUTION WIDTH 13.8 % (11.5-14.5); WHITE BLOOD COUNT 8.3 x10^3/uL (4.0-11.0)
[2020-06-11 19:32] LABS: CALCIUM 9.2 mg/dL (8.5-10.1); CREATININE 0.8 mg/dL (0.6-1.0); GFR 69.9; POTASSIUM 4.1 mmol/L (3.5-5.1)
[2020-06-11 19:37] LABS: ALBUMIN 4.1 g/dL (3.4-5.0); ALBUMIN/GLOBULIN RATIO 1.2 (1.0-1.7); MAGNESIUM 2.2 mg/dL (1.8-2.4); TOTAL BILIRUBIN 0.4 mg/dL (0.2-1.0); TOTAL PROTEIN 7.5 g/dL (6.4-8.2)
--- NOTE | 2020-06-11 20:27 | PHYS DOC ---
Past Medical History Past Medical History: Cancer, CVA, High Cholesterol, Hypertension, TIA, Other Additional Past Medical Histor: R BREAST Past Surgical History: Cholecystectomy, Hysterectomy, Other Additional Past Surgical Histo: L knee; LEFT TOES Smoking Status: Former Smoker Alcohol Use: Occasionally Drug Use: None General Adult EDM: Chief Complaint: MULTIPLE COMPLAINTS HPI: HPI: Patient is a 74 year old female with history of hypertension, high cholesterol, CVA, who presents to the ED today complaining of subjective fevers, chills, sore throat, cough, symptoms for 3 days. Denies any chest pain or shortness of breath. Review of Systems: Review of Systems: Constitutional: Reports subjective fevers, chills Eyes: Denies change in visual acuity. [] HENT: Reports sore throat. Denies nasal congestion Respiratory: Reports cough, denies shortness of breath. [] Cardiovascular: Denies chest pain or edema. [] GI: Denies abdominal pain, nausea, vomiting, bloody stools or diarrhea. [] : Denies dysuria. [] Musculoskeletal: Denies back pain or joint pain. [] Integument: Denies rash. [] Neurologic: Denies headache, focal weakness or sensory changes. [] Psychiatric: Denies depression or anxiety. [] Heart Score: Risk Factors: Risk Factors: DM, Current or recent (<one month) smoker, HTN, HLP, family history of CAD, obesity. Risk Scores: Score 0 - 3: 2.5% MACE over next 6 weeks - Discharge Home Score 4 - 6: 20.3% MACE over next 6 weeks - Admit for Clinical Observation Score 7 - 10: 72.7% MACE over next 6 weeks - Early Invasive Strategies Allergies: Allergies: Allergies Coded Allergies Type Severity Reaction Last Updated Verified No Known Drug Allergies 12/07/17 No Physical Exam: PE: Constitutional: Well developed, well nourished, no acute distress, non-toxic appearance. [] HENT: Normocephalic, atraumatic, bilateral external ears normal, oropharynx m oist, no oral exudates, nose normal. [] Eyes: PERRLA, EOMI, conjunctiva normal, no discharge. [] Neck: Normal range of motion, no tenderness, supple, no stridor. [] Cardiovascular:Heart rate regular rhythm, no murmur [] Lungs & Thorax: Bilateral breath sounds clear to auscultation [] Abdomen: Bowel sounds normal, soft, no tenderness, no masses, no pulsatile masses. [] Skin: Warm, dry, no erythema, no rash. [] Back: No tenderness, no CVA tenderness. [] Extremities: No tenderness, no cyanosis, no clubbing, ROM intact, no edema. [] Neurologic: Alert and oriented X 3, normal motor function, normal sensory function, no focal deficits noted. [] Psychologic: Affect normal, judgement normal, mood normal. [] Current Patient Data: Labs: Laboratory Tests Test 06/11/20 16:43 06/11/20 19:05 Urine Collection Type Unknown Urine Color Yellow Urine Clarity Clear Urine pH 6.5 (<5.0-8.0) Urine Specific [place] <=1.005 (1.000-1.030) Urine Protein Negative mg/dL (NEG-TRACE) Urine Glucose (UA) Negative mg/dL (NEG) Urine Ketones (Stick) Negative mg/dL (NEG) Urine Blood Negative (NEG) Urine Nitrite Negative (NEG) Urine Bilirubin Negative (NEG) Urine Urobilinogen Dipstick 1.0 mg/dL (0.2 mg/dL) Urine Leukocyte Esterase Negative (NEG) Urine RBC 0 /HPF (0-2) Urine WBC Occ /HPF (0-4) Urine Squamous Epithelial Cells Few /LPF Urine Bacteria 0 /HPF (0-FEW) Urine Opiates Screen Neg (NEG) Urine Methadone Screen Neg (NEG) Urine Barbiturates Neg (NEG) Urine Phencyclidine Screen Neg (NEG) Urine Amphetamine/Methamphetamine Neg (NEG) Urine Benzodiazepines Screen Neg (NEG) Urine Cocaine Screen Neg (NEG) Urine Cannabinoids Screen Neg (NEG) Urine Ethyl Alcohol Neg (NEG) White Blood Count 8.3 x10^3/uL (4.0-11.0) Red Blood Count 4.04 x10^6/uL (3.50-5.40) Hemoglobin 13.0 g/dL (12.0-15.5) Hematocrit 38.9 % (36.0-47.0) Mean Corpuscular Volume 96 fL (79-100) Mean Corpuscular Hemoglobin 32 pg (25-35) Mean Corpuscular Hemoglobin Concent 33 g/dL (31-37) Red Cell Distribution Width 13.8 % (11.5-14.5) Platelet Count 256 x10^3/uL (140-400) Neutrophils (%) (Auto) 57 % (31-73) Lymphocytes (%) (Auto) 30 % (24-48) Monocytes (%) (Auto) 13 % (0-9) H Eosinophils (%) (Auto) 0 % (0-3) Basophils (%) (Auto) 1 % (0-3) Neutrophils # (Auto) 4.7 x10^3/uL (1.8-7.7) Lymphocytes # (Auto) 2.5 x10^3/uL (1.0-4.8) Monocytes # (Auto) 1.0 x10^3/uL (0.0-1.1) Eosinophils # (Auto) 0.0 x10^3/uL (0.0-0.7) Basophils # (Auto) 0.0 x10^3/uL (0.0-0.2) Prothrombin Time 12.0 SEC (11.7-14.0) Prothrombin Time INR 0.9 (0.8-1.1) Activated Partial Thromboplast Time 29 SEC (24-38) Sodium Level 140 mmol/L (136-145) Potassium Level 4.1 mmol/L (3.5-5.1) Chloride Level 101 mmol/L (98-107) Carbon Dioxide Level 31 mmol/L (21-32) Anion Gap 8 (6-14) Blood Urea Nitrogen 17 mg/dL (7-20) Creatinine 0.8 mg/dL (0.6-1.0) Estimated GFR (Cockcroft-Gault) 69.9 BUN/Creatinine Ratio 21 (6-20) H Glucose Level 87 mg/dL (70-99) Lactic Acid Level 0.7 mmol/L (0.4-2.0) Calcium Level 9.2 mg/dL (8.5-10.1) Magnesium Level 2.2 mg/dL (1.8-2.4) Total Bilirubin 0.4 mg/dL (0.2-1.0) Aspartate Amino Transferase (AST) 25 U/L (15-37) Alanine Aminotransferase (ALT) 31 U/L (14-59) Alkaline Phosphatase 94 U/L (46-116) Troponin I Quantitative < 0.017 ng/mL (0.000-0.055) FH-Cil-G-Type Natriuretic Peptide 266 pg/mL (0-449) Total Protein 7.5 g/dL (6.4-8.2) Albumin 4.1 g/dL (3.4-5.0) Albumin/Globulin Ratio 1.2 (1.0-1.7) Procalcitonin < 0.10 ng/mL (0.00-0.10) Thyroid Stimulating Hormone (TSH) 0.425 uIU/mL (0.358-3.74) Laboratory Tests 06/11/20 19:05 Laboratory Tests 06/11/20 19:05 Vital Signs: Vital Signs Date Time Temp Pulse Resp B/P (MAP) Pulse Ox O2 Delivery O2 Flow Rate FiO2 06/11/20 17:57 82 161/70 (100) 94 Room Air 06/11/20 16:05 99.7 20 99.7 EKG: EKG: [] Radiology/Procedures: Radiology/Procedures: []PROCEDURE: PORTABLE CHEST 1V PORTABLE CHEST 1V Clinical Indication: Reason: soa / Spl. Instructions: / History: Comparison: AP chest, 08/28/2019. Findings: Atherosclerotic aortic arch. The cardiomediastinal silhouette is normal. Lungs are clear. There is no pneumothorax. No pleural effusion is appreciated. No acute bone abnormality. Spinal stimulator leads are redemonstrated. IMPRESSION: No acute cardiopulmonary process. Electronically signed by: Laureano Parikh MD (06/11/2020 4:54 PM) [facility] DICTATED and SIGNED BY: LAUREANO PARIKH MD DATE: 06/11/20 4620 Course & Med Decision Making: Course & Med Decision Making Pertinent Labs and Imaging studies reviewed. (See chart for details) This is a 74-year-old female patient presenting to the ED today with cough sore throat subjective fevers body aches and chills, symptoms began 3 days ago. Vitals on arrival to the ED temperature 99.7 heart rate 90 O2 sats 94% on room air blood pressure 125/55, respiration 20. Chest x-ray negative for any acute findings, CBC, CMP with no acute findings. Negative rapid strep. Patient was d ischarged to home. Follow-up with PCP in 1 to 2 weeks. COVID-19 test pending. Stormy Disclaimer: Dragharis Disclaimer: This electronic medical record was generated, in whole or in part, using a voice recognition dictation system. Departure Departure Impression: Primary Impression: Cough Additional Impressions: Fever Qualified Codes: R50.9 - Fever, unspecified Pharyngitis, acute Qualified Codes: J02.9 - Acute pharyngitis, unspecified Disposition: 01 HOME, SELF-CARE Condition: STABLE Referrals: BRAYDON CARBAJAL (PCP) follow up in 1-2 weeks Patient Instructions: Cough, Adult, [id number], Viral Pharyngitis Additional Instructions: You were evaluated in the emergency room, your work-up was negative for any acute findings including normal labs and x-rays of the chest. Please follow-up with your own doctor in 1 to 2 weeks. We will call you with COVID19 test results in the course of this week and early next week. Quarantine yourself for the weight for results. Justicifation of Admission Dx: Justifications for Admission: Justification of Admission Dx: N/A YOLA RIVERA APRN Jun 11, 2020 20:27
[2020-06-11 20:31] VITALS: BP 141/63
== END 2020-06-11 20:43 | disposition home or self-care (01) ==
LOC: ER 14:31
DX: U07.1 COVID-19 (principal); R05 Cough; R50.9 Fever, unspecified; J02.9 Acute pharyngitis, unspecified; E78.00 Pure hypercholesterolemia, unspecified; I10 Essential (primary) hypertension; Z86.73 Personal history of transient ischemic attack (TIA), and cerebral infarction without residual deficits; Z87.891 Personal history of nicotine dependence
CPT/HCPCS: 36415; 71045; 80053; 80307; 81001; 83605; 83735; 83880; 84145; 84443; 84484; 85025; 85610; 85730; 87040; 87070; 87880; 93005; 99285; C9803; U0003

== ENCOUNTER 2021-01-27 11:44 | Emergency (ER) | payer MEDICARE ==
[~2021-01-27] VITALS: Ht 160 cm; Wt 74.1 kg
[2021-01-27 12:20] VITALS: BP 142/52
[2021-01-27] MEDS ORDERED: HYDROcodone/APAP 5/325MG 1 TAB TABLET PO ONE (13:00)
--- NOTE | 2021-01-27 13:14 | PHYS DOC ---
Past Medical History Past Medical History: No Pertinent History Additional Past Medical Histor: R BREAST Past Surgical History: No Surgical History Additional Past Surgical Histo: L knee; LEFT TOES Smoking Status: Former Smoker Alcohol Use: None Drug Use: None General Adult EDM: Chief Complaint: MECHANICAL FALL HPI: HPI: Patient is a 75 year old female who presents with was walking in [place] that was dark 9 days ago and accidentally stepped on her [place] dog and when he went to move she lost her balance and fell onto her coccyx area. She states since then she has had tenderness and pain in her lower back and coccyx sacrum area. She states she has been up and walking and walking does not hurt but if she sits or tries to get out of bed it hurts her coccyx area. She denies any urinary blood, loss of bowel bladder, numbness or tingling, focal weakness, hitting her head, abdominal pain, nausea. States has been taking Tylenol at home. She is rating her pain a 9 out of 10. Review of Systems: Review of Systems: Constitutional: Denies fever or chills. [] Eyes: Denies change in visual acuity. [] HENT: Denies nasal congestion or sore throat. [] Respiratory: Denies cough or shortness of breath. [] Cardiovascular: Denies chest pain or edema. [] GI: Denies abdominal pain, nausea, vomiting, bloody stools or diarrhea. [] : Denies dysuria. [] Musculoskeletal: Denies back pain or joint pain. +Coccyx and sacral pain [] Integument: Denies rash. [] Neurologic: Denies headache, focal weakness or sensory changes. [] Endocrine: Denies polyuria or polydipsia. [] Lymphatic: Denies swollen glands. [] Psychiatric: Denies depression or anxiety. [] Heart Score: C/O Chest Pain: No Risk Factors: Risk Factors: DM, Current or recent (<one month) smoker, HTN, HLP, family history of CAD, obesity. Risk Scores: Score 0 - 3: 2.5% MACE over next 6 weeks - Discharge Home Score 4 - 6: 20.3% MACE over next 6 weeks - Admit for Clinical Observation Score 7 - 10: 72.7% MACE over next 6 weeks - Early Invasive Strategies Current Medications: Current Medications Medications (Trade) Dose Ordered Sig/Nikita Start Time Stop Time Status Last Admin Dose Admin Acetaminophen/ Hydrocodone Bitart (Lortab 5/325) 1 tab 1X ONCE 01/27/21 13:00 01/27/21 13:01 DC 01/27/21 13:06 1 TAB Allergies: Allergies: Allergies Coded Allergies Type Severity Reaction Last Updated Verified No Known Drug Allergies 12/07/17 No Physical Exam: PE: Constitutional: Well developed, well nourished, no acute distress, non-toxic appearance. [] HENT: Normocephalic, atraumatic, bilateral external ears normal, oropharynx moist, no oral exudates, nose normal. [] Eyes: PERRLA, EOMI, conjunctiva normal, no discharge. [] Neck: Normal range of motion, no tenderness, supple, no stridor. [] Cardiovascular:Heart rate regular rhythm, no murmur [] Lungs & Thorax: Bilateral breath sounds clear to auscultation [] Abdomen: Bowel sounds normal, soft, no tenderness, no masses, no pulsatile masses. [] Skin: Warm, dry, no erythema, no rash. [] Back: No tenderness, no CVA tenderness. Tenderness to coccyx sacrum area with palpation [] Extremities: No tenderness, no cyanosis, no clubbing, ROM intact, no edema. [] Neurologic: Alert and oriented X 3, normal motor function, normal sensory function, no focal deficits noted. [] Psychologic: Affect normal, judgement normal, mood normal. [] Current Patient Data: Vital Signs: Vital Signs Date Time Temp Pulse Resp B/P (MAP) Pulse Ox O2 Delivery O2 Flow Rate FiO2 01/27/21 13:06 18 01/27/21 12:20 98.8 73 142/52 (82) 97 Room Air 98.8 EKG: EKG: [] Radiology/Procedures: Radiology/Procedures: [] Impression: [facility] [address] [place] [address] IMAGING REPORT Signed PATIENT: MICHAEL LUTHER ACCOUNT: [id number] : 1945 LOCATION: ER AGE: 75 SEX: F EXAM STATUS: REG ER ORD. PHYSICIAN: AMINA MCKEON APRN REASON: fall, pain, tenderness PROCEDURE: SACRUM & COCCYX 3V Exam performed: X-ray sacrococcygeal spine. HISTORY: Pain, tenderness. DATE OF SERVICE: 01/27/2021. COMPARISON: None available FINDINGS: AP, lateral and cone view of the sacrococcygeal spine demonstrates normal sagittal alignment. There is no acute fracture or dislocation. A neurostimulator battery pack overlying the left sacrum. IMPRESSION: No acute abnormality seen. Electronically signed by: Jazmín Jo MD (01/27/2021 1:49 PM) [id number] DICTATED and SIGNED BY: JAZMÍN JO MD DATE: 01/27/21 [id number] [facility] [address] [place], [place] [id number] IMAGING REPORT Signed PATIENT: MICHAEL LUTHER ACCOUNT: [id number] : 1945 LOCATION: ER AGE: 75 SEX: F EXAM STATUS: REG ER ORD. PHYSICIAN: AMINA MCKEON APRN REASON: fall, lower back and coccyx pain and tenderness PROCEDURE: CT LUMBAR SPINE WO CONTRAST CT LUMBAR SPINE WO dated 01/27/2021 1:00 PM Indication:Reason: fall, lower back and coccyx pain and tenderness / Spl. Instructions: / History: Comparison: No comparison is available. Technique: Helical noncontrast images were performed. Sagittal and coronal reconstructions were obtained. One or more of the following individualized dose reduction techniques were utilized for this examination: 1. Automated exposure control 2. Adjustment of the mA and/or kV according to patient size 3. Use of iterative reconstruction technique Findings: There is some osteoporosis with accentuation of the vertical trabeculae. There is some anterior offset of L5 on S1 secondary to spondylolysis of L5. Offset measures about 6 mm. There is mild scoliotic curvature, convex to the left through the lower lumbar levels Alignment otherwise appears normal. There is no apparent loss of vertebral body height or other evidence for fracture. No destructive process is seen. A stimulator device is visible in the lower lumbar levels. Evaluation of the soft tissue components of the canal is limited without intrathecal contrast. There is no obvious large disc protrusion. Mild protrusions are suggested at L2-3, L3-4 and L4-5, and also probably T11-12. There are some degenerative disc changes, especially at L2-3 and L4-5. Incidental note is made of a low-density lesion in the lower left kidney. Internal density is slightly higher than a typical benign cyst, although this has not enlarged from prior CT of over 5 years ago. IMPRESSION: There is spondylolisthesis at L5-S1. No fracture or other acute abnormality is identified. Electronically signed by: Noemi Henry Jr., MD (01/27/2021 1:37 PM) [id number] DICTATED and SIGNED BY: NOEMI HENRY Jr, MD DATE: 01/27/21 [id number] Course & Med Decision Making: Course & Med Decision Making Pertinent Labs and Imaging studies reviewed. (See chart for details) See HPI. Alert and oriented x4. Ambulatory with steady gait. Patient is very tender at the coccyx sacral area with palpation. There is no swelling or bruising. Speaks in full clear sentences. Moving all extremities and there is no focal weakness or deformities. She is given hydrocodone in the ED. [] Dragon Disclaimer: Dragon Disclaimer: This electronic medical record was generated, in whole or in part, using a voice recognition dictation system. Departure Departure Impression: Primary Impression: Coccyx pain Additional Impressions: Sacrum sprain Qualified Codes: S33.8XXA - Sprain of other parts of lumbar spine and pelvis, initial encounter Fall Qualified Codes: W19.XXXA - Unspecified fall, initial encounter Disposition: HOME / SELF CARE / HOMELESS Condition: STABLE Referrals: BRAYDON CARBAJAL (PCP) Patient Instructions: Contusion, Fall Prevention and Home Safety Additional Instructions: Follow-up with primary care provider if needed. Try using ice and heating pad. I have ordered you some pain medication from there this pain medication can make you very sleepy. Do not drive or operate heavy machinery or drink any alcohol with this medication. Scripts Hydrocodone Bit/Acetaminophen (HYDROCODONE-APAP 5-325 ) 1 Tab Tablet 1 TAB PO PRN Q6HRS PRN for PAIN, #8 TAB 0 Refills Prov: AMINA MCKEON APRN 01/27/21 AMINA MCKEON APRN January 27, 2021 13:14
--- NOTE | 2021-01-27 13:40 | RAD ---
CT LUMBAR SPINE WO dated 01/27/2021 1:00 PM Indication:Reason: fall, lower back and coccyx pain and tenderness / Spl. Instructions: / History: Comparison: No comparison is available. Technique: Helical noncontrast images were performed. Sagittal and coronal reconstructions were obtai markell. One or more of the following individualized dose reduction techniques were utilized for this examinat ion: 1. Automated exposure control 2. Adjustment of the mA and/or kV according to patient size 3. Use of iterative reconstruction technique Findings: There is some osteoporosis with accentuation of the vertical trabeculae. There is some anterior offse t of L5 on S1 secondary to spondylolysis of L5. Offset measures about 6 mm. There is mild scoliotic c urvature, convex to the left through the lower lumbar levels Alignment otherwise appears normal. Ther e is no apparent loss of vertebral body height or other evidence for fracture. No destructive process is seen. A stimulator device is visible in the lower lumbar levels. Evaluation of the soft tissue co mponents of the canal is limited without intrathecal contrast. There is no obvious large disc protrus ion. Mild protrusions are suggested at L2-3, L3-4 and L4-5, and also probably T11-12. There are some degenerative disc changes, especially at L2-3 and L4-5. Incidental note is made of a low-density lesion in the lower left kidney. Internal density is slightl y higher than a typical benign cyst, although this has not enlarged from prior CT of over 5 years ago . IMPRESSION: There is spondylolisthesis at L5-S1. No fracture or other acute abnormality is identified. Electronically signed by: Rhys Henry Jr., MD (01/27/2021 1:37 PM) [id number]
--- NOTE | 2021-01-27 13:52 | RAD ---
Exam performed: X-ray sacrococcygeal spine. HISTORY: Pain, tenderness. DATE OF SERVICE: 01/27/2021. COMPARISON: None available FINDINGS: AP, lateral and cone view of the sacrococcygeal spine demonstrates normal sagittal alignment. There i s no acute fracture or dislocation. A neurostimulator battery pack overlying the left sacrum. IMPRESSION: No acute abnormality seen. Electronically signed by: Jazmín Jo MD (01/27/2021 1:49 PM) [id number]
[2021-01-27] MEDS ORDERED: HYDR-2761 PO (13:58)
== END 2021-01-27 14:15 | disposition home or self-care (01) ==
LOC: ER 11:44
DX: S33.8XXA Sprain of other parts of lumbar spine and pelvis, initial encounter (principal); M53.3 Sacrococcygeal disorders, not elsewhere classified; Z87.891 Personal history of nicotine dependence; W01.0XXA Fall on same level from slipping, tripping and stumbling without subsequent striking against object, initial encounter; Y93.01 Activity, walking, marching and hiking; Y92.89 Other specified places as the place of occurrence of the external cause; Y99.8 Other external cause status
CPT/HCPCS: 72131; 72220; 99284-25

== ENCOUNTER → 2021-03-02 | Outpatient (CLI) | payer MEDICARE ==
[~2021-03-02] MED LIST changes: +HYDR-2761 PO
--- NOTE | 2021-03-02 10:23 | RAD ---
PROCEDURE: MG BILAT SCREEN+FREDERIC HISTORY: The patient is 75 years old and is seen for Reason: SCREENING MAMMOGRAM / Spl. Instructions: / History: . COMPARISON: February 24, 2020 TECHNIQUE: CC and MLO views of both breasts were obtained. Images were processed by the [employer] computer-aided detection system. DENSITY: There are scattered fibroglandular densities. FINDINGS: Right breast: Post lumpectomy changes with slightly increased dystrophic calcifications. No new suspi cious mass, architectural distortion or microcatheter contusion. Left breast: No suspicious microcatheter desiccation, mass or architectural distortion. IMPRESSION: Negative. No evidence of malignancy. Recommend annual screening mammograms per [employer] guidelines. She will be due in one year. BI-RADS category 2 Benign Patient entered into a reminder system for annual screening mammogram. Electronically signed by: Sami Montenegro DO (03/02/2021 10:21 AM) [id number]
== END ==
LOC: MAMMO 08:44
PROVIDERS: ATTEND Family Medicine
DX: Z12.31 Encounter for screening mammogram for malignant neoplasm of breast (principal)
CPT/HCPCS: 77063; 77067

== ENCOUNTER → 2021-11-29 | Outpatient (CLI) | payer MEDICARE ==
[~2021-11-29] MED LIST changes: +CYCL10TA19 PO; -CYCL10TA2 PO
[2021-11-29 13:05] LABS: BASO # 0.1 x10^3/uL (0.0-0.2); BASO % 1 % (0-3); EOS # 0.1 x10^3/uL (0.0-0.7); EOS % 2 % (0-3); HEMATOCRIT 39.4 % (36.0-47.0); HEMOGLOBIN 12.6 g/dL (12.0-15.5); LYMPH # 2.3 x10^3/uL (1.0-4.8); LYMPH % 39 % (24-48); MEAN CORPUSCULAR HEMOGLOBIN 31 pg (25-35); MEAN CORPUSCULAR HGB CONC 32 g/dL (31-37); MEAN CORPUSCULAR VOLUME 98 fL (79-100); MONO # 0.6 x10^3/uL (0.0-1.1); MONO % 9 % (0-9); NEUT % 49 % (31-73); PLATELET COUNT 268 x10^3/uL (140-400); RED BLOOD COUNT 4.02 x10^6/uL (3.50-5.40); RED CELL DISTRIBUTION WIDTH 14.4 % (11.5-14.5); WHITE BLOOD COUNT 6.1 x10^3/uL (4.0-11.0)
[2021-11-29 13:31] LABS: ALBUMIN 3.8 g/dL (3.4-5.0); ALBUMIN/GLOBULIN RATIO 1.1 (1.0-1.7); CALCIUM 9.1 mg/dL (8.5-10.1); CREATININE 0.9 mg/dL (0.6-1.0); GFR 60.7; TOTAL BILIRUBIN 0.3 mg/dL (0.2-1.0); TOTAL PROTEIN 7.3 g/dL (6.4-8.2)
== END ==
LOC: LAB 12:15
PROVIDERS: ATTEND Podiatrist
DX: M20.12 Hallux valgus (acquired), left foot (principal); I10 Essential (primary) hypertension
CPT/HCPCS: 36415; 80053; 85025